=== PATIENT | male | born 1970 | race Caucasian/White ===

== ENCOUNTER 2016-07-17 20:49 | Observation (INO) | payer MEDICARE, OTHER ==
[2016-07-17 20:56] VITALS: RESP 18; TEMP 98.4
[2016-07-17] MEDS ORDERED: NITROGLYCERIN OINT 1 INCH/GM PACKET TOPICAL STA (21:21)
[2016-07-17] MEDS ORDERED: SODIUM CHLORIDE 0.9% 1,000 ML IV STA (21:21)
[2016-07-17] MEDS ORDERED: ASPIRIN 81 MG CHEW PO STA (21:21)
--- NOTE | 2016-07-17 21:24 | ED ---
General Adult HPI - General Chief complaint: Chest Pain Stated complaint: chest pain,dizziness Time Seen by Provider: 07/17/16 21:15 Source: patient, RN notes reviewed Mode of arrival: ambulatory Limitations: no limitations - History of Present Illness Initial comments: Patient is a pleasant 45-year-old male presenting to the emergency department complaining of chest discomfort. Symptoms have been intermittent for the past 3 weeks. Patient is currently symptom-free. Discomfort is sharp without radiation. Patient has some associated lightheadedness and nausea. No dyspnea or diaphoresis. No history of similar symptoms previously. Patient did see her doctor recently and had an EKG done that he was told was okay. Symptoms are nonexertional. Patient does have a history of type 2 diabetes and hypercholesterolemia. Patient recently stopped smoking. - Related Data Home Medications Medication Instructions Recorded Confirmed ARIPiprazole [Abilify] 5 mg PO DAILY 07/17/16 07/17/16 Niacin [Niaspan] 1,000 mg PO HS 07/17/16 07/17/16 Previous Rx's Medication Instructions Recorded Atorvastatin [Lipitor] 40 mg PO DAILY 30 Days 12/28/15 Cholecalciferol [Vitamin D3] 1,000 unit PO DAILY 30 Days 12/28/15 metFORMIN HCL [Glucophage] 500 mg PO BID 30 Days 12/28/15 Allergies Allergy/AdvReac Type Severity Reaction Status Date / Time Penicillins Allergy Unknown Verified 07/17/16 21:50 Childhood Review of Systems ROS Statement: Those systems with pertinent positive or pertinent negative responses have been documented in the HPI. ROS Other: All systems not noted in ROS Statement are negative. Constitutional: Denies: fever Eyes: Denies: eye pain ENT: Denies: ear pain Respiratory: Denies: cough, dyspnea Cardiovascular: Reports: chest pain Endocrine: Denies: heat or cold intolerance Gastrointestinal: Reports: nausea. Denies: abdominal pain Genitourinary: Denies: dysuria Musculoskeletal: Denies: back pain Skin: Denies: rash Neurological: Denies: weakness Past Medical History Past Medical History: Diabetes Mellitus, Hyperlipidemia History of Any Multi-Drug Resistant Organisms: None Reported Past Surgical History: No Surgical Hx Reported Past Anesthesia/Blood Transfusion Reactions: No Reported Reaction Past Psychological History: Schizoaffective Disorder Smoking Status: Current every day smoker Past Alcohol Use History: Occasional Additional Past Alcohol Use History / Comment(s): He is a smoker of one half pack per day for 15 years Patient states that he drinks alcohol once or twice weekly. He denies any street drug use. Patient is single. He has a 13-year- old daughter that is healthy. 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 Past Drug Use History: None Reported - Past Family History Mother History Unknown: Yes Additional Family Medical History / Comment(s): Mother is 75 years of age and he is unsure of her past medical history. Father History Unknown: Yes Additional Family Medical History / Comment(s): Father is alive at age 75 with history of coronary artery disease. Daughter(s) Family Medical History: No Reported History Brother(s) Family Medical History: No Reported History Additional Family Medical History / Comment(s): He has 2 brothers with no major medical problems. General Exam Limitations: no limitations General appearance: alert, in no apparent distress Head exam: Present: atraumatic Eye exam: Present: normal appearance, PERRL ENT exam: Present: normal oropharynx Neck exam: Present: normal inspection Respiratory exam: Present: normal lung sounds bilaterally. Absent: chest wall tenderness Cardiovascular Exam: Present: regular rate, normal rhythm Expanded Peripheral pulses: 2+: Radial (R), Radial (L), Posterior Tibialis (R), Posterior Tibialis (L) GI/Abdominal exam: Present: soft. Absent: tenderness Extremities exam: Present: normal inspection. Absent: pedal edema, calf tenderness Neurological exam: Present: alert Psychiatric exam: Present: normal affect, normal mood Skin exam: Absent: rash Course Vital Signs 07/17/16 07/17/16 20:53 21:55 Temperature 98.4 F Pulse Rate 70 76 Respiratory 18 18 Rate Blood Pressure 131/61 123/56 O2 Sat by Pulse 97 98 Oximetry EKG Findings - EKG Comments: EKG Findings:: Normal sinus rhythm at 78. Normal intervals. Normal axis. Normal QRS. Normal ST-T. Medical Decision Making - Medical Decision Making Patient reexamined and resting comfortably in bed. Patient is symptom-free. Case discussed in detail with Dr. turner, who will admit for Dr. hurt. Admission orders written. IV heparin started. Consult placed for cardiology. - Lab Data Result diagrams: 07/17/16 21:20 07/17/16 21:20 Lab Results 07/17/16 07/17/16 07/17/16 Range/Units 21:20 21:20 21:20 WBC 9.9 (3.8-10.6) k/uL RBC 4.43 (4.30-5.90) m/uL Hgb 14.2 (13.0-17.5) gm/dL Hct 40.2 (39.0-53.0) % MCV 90.8 (80.0-100.0) fL MCH 32.0 (25.0-35.0) pg MCHC 35.3 (31.0-37.0) g/dL RDW 12.4 (11.5-15.5) % Plt Count 288 (150-450) k/uL Neutrophils % 49 % Lymphocytes % 41 % Monocytes % 5 % Eosinophils % 2 % Basophils % 1 % Neutrophils # 4.9 (1.3-7.7) k/uL Lymphocytes # 4.1 (1.0-4.8) k/uL Monocytes # 0.5 (0-1.0) k/uL Eosinophils # 0.2 (0-0.7) k/uL Basophils # 0.1 (0-0.2) k/uL PT (9.0-12.0) sec INR (<1.1) APTT (22.0-30.0) sec Sodium 139 (137-145) mmol/L Potassium 4.2 (3.5-5.1) mmol/L Chloride 104 (98-107) mmol/L Carbon Dioxide 23 (22-30) mmol/L Anion Gap 12 mmol/L BUN 14 (9-20) mg/dL Creatinine 0.79 (0.66-1.25) mg/dL Est GFR (MDRD) Af Amer >60 (>60 ml/min/1.73 sqM) Est GFR (MDRD) Non-Af >60 (>60 ml/min/1.73 sqM) Glucose 159 H (74-99) mg/dL Calcium 9.3 (8.4-10.2) mg/dL Magnesium 2.0 (1.6-2.3) mg/dL Total Bilirubin 0.5 (0.2-1.3) mg/dL AST 29 (17-59) U/L ALT 54 (21-72) U/L Alkaline Phosphatase 44 (38-126) U/L Total Creatine Kinase 99 (55-170) U/L CK-MB (CK-2) 0.6 (0.0-2.4) ng/mL CK-MB (CK-2) Rel Index 0.6 Troponin I <0.012 (0.000-0.034) ng/mL Total Protein 7.1 (6.3-8.2) g/dL Albumin 4.2 (3.5-5.0) g/dL 07/17/16 Range/Units 21:20 WBC (3.8-10.6) k/uL RBC (4.30-5.90) m/uL Hgb (13.0-17.5) gm/dL Hct (39.0-53.0) % MCV (80.0-100.0) fL MCH (25.0-35.0) pg MCHC (31.0-37.0) g/dL RDW (11.5-15.5) % Plt Count (150-450) k/uL Neutrophils % % Lymphocytes % % Monocytes % % Eosinophils % % Basophils % % Neutrophils # (1.3-7.7) k/uL Lymphocytes # (1.0-4.8) k/uL Monocytes # (0-1.0) k/uL Eosinophils # (0-0.7) k/uL Basophils # (0-0.2) k/uL PT 9.9 (9.0-12.0) sec INR 1.0 (<1.1) APTT 23.4 (22.0-30.0) sec Sodium (137-145) mmol/L Potassium (3.5-5.1) mmol/L Chloride (98-107) mmol/L Carbon Dioxide (22-30) mmol/L Anion Gap mmol/L BUN (9-20) mg/dL Creatinine (0.66-1.25) mg/dL Est GFR (MDRD) Af Amer (>60 ml/min/1.73 sqM) Est GFR (MDRD) Non-Af (>60 ml/min/1.73 sqM) Glucose (74-99) mg/dL Calcium (8.4-10.2) mg/dL Magnesium (1.6-2.3) mg/dL Total Bilirubin (0.2-1.3) mg/dL AST (17-59) U/L ALT (21-72) U/L Alkaline Phosphatase (38-126) U/L Total Creatine Kinase (55-170) U/L CK-MB (CK-2) (0.0-2.4) ng/mL CK-MB (CK-2) Rel Index Troponin I (0.000-0.034) ng/mL Total Protein (6.3-8.2) g/dL Albumin (3.5-5.0) g/dL - Radiology Data Radiology results: image reviewed (Chest x-ray shows no acute process) Critical Care Time Critical Care Time: Yes Total Critical Care Time: 31 Disposition Clinical Impression: Unstable angina pectoris Disposition: ADMITTED IP TO THIS HOSP
[2016-07-17 21:31] LABS: Basophils # (A) 0.1 k/uL (0-0.2); Basophils % (A) 1 %; CH 32.1; CHCM 35.6; Eosinophils # (A) 0.2 k/uL (0-0.7); Eosinophils % (A) 2 %; HCT 40.2 % (39.0-53.0); HDW 2.53; HGB 14.2 gm/dL (13.0-17.5); Luc # (Auto) 0.27; Luc % (Auto) 3; Lymphocytes # (A) 4.1 k/uL (1.0-4.8); Lymphocytes % (A) 41 %; MCHC 35.3 g/dL (31.0-37.0); MCV 90.8 fL (80.0-100.0); Mean Platelet Volume 7.6; Monocytes # (A) 0.5 k/uL (0-1.0); Monocytes % (A) 5 %; Neutrophils # (A) 4.9 k/uL (1.3-7.7); Neutrophils % (A) 49 %; RBC 4.43 m/uL (4.30-5.90); RDW 12.4 % (11.5-15.5); WBC 9.9 k/uL (3.8-10.6); WBC (Perox) 9.94
[2016-07-17 21:41] LABS: ALT 54 U/L (21-72); AST 29 U/L (17-59); Alkaline Phosphatase 44 U/L (38-126); Anion Gap 12 mmol/L; Blood Urea Nitrogen 14 mg/dL (9-20); Calcium 9.3 mg/dL (8.4-10.2); Carbon Dioxide 23 mmol/L (22-30); Chloride 104 mmol/L (98-107); Glucose 159 mg/dL (74-99); Non-African American GFR(MDRD) >60 (>60 ml/min/1.73 sqM); Potassium 4.2 mmol/L (3.5-5.1); Sodium 139 mmol/L (137-145); Total Bilirubin 0.5 mg/dL (0.2-1.3); Total Protein 7.1 g/dL (6.3-8.2)
[2016-07-17 21:42] LABS: Partial Thromboplastin Time 23.4 sec (22.0-30.0); Prothrombin Time 9.9 sec (9.0-12.0)
[2016-07-17 21:52] LABS: Creatine Kinase 99 U/L (55-170)
[2016-07-17 21:59] VITALS: BP 123/56; PULSE 76
[2016-07-17 22:05] LABS: Creatine Kinase MB 0.6 ng/mL (0.0-2.4); Troponin I <0.012 ng/mL (0.000-0.034)
--- NOTE | 2016-07-17 22:10 | XR ---
EXAM: XR Chest, 2 Views. CLINICAL HISTORY: Reason: Chest Pain TECHNIQUE: Frontal and lateral views of the chest. COMPARISON: No relevant prior studies available. FINDINGS: Lungs: Unremarkable. No consolidation. Pleural spaces: Unremarkable. No pneumothorax. Heart: Borderline cardiomegaly. Mediastinum: Unremarkable. Bones: Unremarkable. No acute fracture. IMPRESSION: No acute findings or source of the patient's chest pain detected.
[2016-07-17] MEDS ORDERED: HEPARIN SODIUM,PORCINE 5,000 UNIT/ML 1 ML VIAL IV ONE (22:40)
[2016-07-17] MEDS ORDERED: NITROGLYCERIN SL TABS 0.4 MG TAB SUBLINGUAL PRN (22:40)
[2016-07-17] MEDS ORDERED: HEPARIN SODIUM,PORCINE 5,000 UNIT/ML 1 ML VIAL IV PRN (22:40)
[2016-07-17] MEDS ORDERED: HEPARIN SODIUM,PORCINE/D5W PMX 25,000 UNIT in DEXTROSE/WATER 1 500ML.BAG IV SCH (22:45)
[2016-07-18] MEDS ORDERED: NITROGLYCERIN OINT 1 INCH/GM PACKET TOPICAL SCH
[2016-07-18] MEDS ORDERED: ASPIRIN 325 MG TAB PO SCH (09:00)
--- NOTE | 2016-07-26 20:08 | HP ---
DATE OF ADMISSION: 07/17/2016 HISTORY AND PHYSICAL EXAMINATION/DISCHARGE SUMMARY: Date left against medical advice: 07/17/2016 This is a patient who was not seen by me, was admitted with chest pain for further documentation. Refer to the ER notes. ADMITTING DIAGNOSIS(ES): Chest pain. DISCHARGE DIAGNOSIS(ES): Chest pain.
== END 2016-07-17 23:10 | disposition left against medical advice (07) ==
LOC: EC 20:49 → 3OBS 22:39
PROVIDERS: ADMIT Hospitalist; ATTEND Hospitalist
DX: I20.0 Unstable angina (principal); R42 Dizziness and giddiness; R11.0 Nausea; E11.9 Type 2 diabetes mellitus without complications; E78.00 Pure hypercholesterolemia, unspecified; E78.5 Hyperlipidemia, unspecified; F17.200 Nicotine dependence, unspecified, uncomplicated; F25.9 Schizoaffective disorder, unspecified; Z82.49 Family history of ischemic heart disease and other diseases of the circulatory system; Z79.84 Long term (current) use of oral hypoglycemic drugs; Z79.899 Other long term (current) drug therapy; Z88.0 Allergy status to penicillin
CPT/HCPCS: 36415; 93005; 80053; 82550; 82553; 83735; 84484; 85025; 85610; 85730; 71020; 99291; G0378

== ENCOUNTER 2016-07-18 00:34 | Observation (INO) | payer MEDICARE, OTHER ==
--- NOTE | 2016-07-18 01:01 | ED ---
Chest Pain HPI - General Chief Complaint: Chest Pain Stated Complaint: Chest Pain Time Seen by Provider: 07/18/16 00:41 Source: patient Mode of arrival: ambulatory Limitations: no limitations - History of Present Illness Initial Comments: He was here with the chest pain eval he was seen in the ER had a blood work done we made some arrangements for his admission then numb he took cough now he is back and now he intends to stay he still feels bit dizzy lightheaded and still has a mild chest pain has a mild headache no neck stiffness does have a mild chest pain no shortness of breath no abdominal pain been nauseous no frequency urgency dysuria no signs of TIA or CVA - Related Data Home Medications Medication Instructions Recorded Confirmed ARIPiprazole [Abilify] 5 mg PO DAILY 07/17/16 07/17/16 Niacin [Niaspan] 1,000 mg PO HS 07/17/16 07/17/16 Previous Rx's Medication Instructions Recorded Atorvastatin [Lipitor] 40 mg PO DAILY 30 Days 12/28/15 Cholecalciferol [Vitamin D3] 1,000 unit PO DAILY 30 Days 12/28/15 metFORMIN HCL [Glucophage] 500 mg PO BID 30 Days 12/28/15 Allergies Allergy/AdvReac Type Severity Reaction Status Date / Time Penicillins Allergy Unknown Verified 07/18/16 00:38 Childhood Review of Systems ROS Statement: Those systems with pertinent positive or pertinent negative responses have been documented in the HPI. ROS Other: All systems not noted in ROS Statement are negative. EKG Findings - EKG Comments: EKG Findings:: EKG is normal sinus rhythm ventricular rate is 77 NC interval is 118 QRS duration is 86 QT/QTc is 370/423 review of this EKG shows T-wave inversion in lead 3 and lead aVF no ST elevation or ST depression noticed in the other leads Past Medical History Past Medical History: Diabetes Mellitus, Hyperlipidemia History of Any Multi-Drug Resistant Organisms: None Reported Past Surgical History: No Surgical Hx Reported Past Anesthesia/Blood Transfusion Reactions: No Reported Reaction Past Psychological History: Schizoaffective Disorder Smoking Status: Current every day smoker Past Alcohol Use History: Occasional Additional Past Alcohol Use History / Comment(s): He is a smoker of one half pack per day for 15 years Patient states that he drinks alcohol once or twice weekly. He denies any street drug use. Patient is single. He has a 13-year- old daughter that is healthy. 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 Past Drug Use History: None Reported - Past Family History Mother History Unknown: Yes Additional Family Medical History / Comment(s): Mother is 75 years of age and he is unsure of her past medical history. Father History Unknown: Yes Additional Family Medical History / Comment(s): Father is alive at age 75 with history of coronary artery disease. Daughter(s) Family Medical History: No Reported History Brother(s) Family Medical History: No Reported History Additional Family Medical History / Comment(s): He has 2 brothers with no major medical problems. General Exam - General Exam Comments Initial Comments: General: The patient is awake and alert, in no distress, and does not appear acutely ill. Skin: Skin is warm and dry and no rashes or lesions are noted. Eye: Pupils are equal, round and reactive to light, extra-ocular movements are intact; there is normal conjunctiva bilaterally. Ears, nose, mouth and throat: There are moist mucous membranes and no oral lesions. Neck: The neck is supple, there is no tenderness or JVD. Cardiovascular: There is a regular rate and rhythm. No murmur, rub or gallop is appreciated. Respiratory: To auscultation bilateral, no wheezing no rhonchi no distress respiratory mckinley noticed Gastrointestinal: Soft, non-distended, non-tender abdomen without masses or organomegaly noted. There is no rebound or guarding present. Bowel sounds are unremarkable. Back: There is no tenderness to palpation in the midline. There is no obvious deformity. Musculoskeletal: Normal ROM, no tenderness, There is no pedal edema. There is no calf tenderness or swelling. No cords were appreciated. Neurological: CN II-XII intact, Cranial nerves III through XII are intact. There are no obvious motor or sensory deficits. Coordination appears grossly intact. Speech is normal. Psychiatric: Cooperative, appropriate mood & affect, normal judgment. Limitations: no limitations Course Vital Signs 07/18/16 00:37 Temperature 98.3 F Pulse Rate 81 Respiratory 22 Rate Blood Pressure 121/60 O2 Sat by Pulse 98 Oximetry Me he had a blood work done at 9:15 PM today, he reviewed the blood work that included CBC, compressive metabolic panel, chest x-ray I reviewed all those labs and they are within normal range considering his age and his multiple risk factors I would like to admit him to the hospital consult cardiology and heparinize him Disposition Clinical Impression: Chest pain Disposition: ADMITTED IP TO THIS HOSP Condition: Good Referrals: Red Yanez MD [Primary Care Provider] - 1-2 days
[2016-07-18] MEDS ORDERED: MORPHINE SULFATE 2 MG/ML SYRINGE IVP PRN (01:05)
[2016-07-18] MEDS ORDERED: HEPARIN SODIUM,PORCINE 5,000 UNIT/ML 1 ML VIAL IV ONE (01:05)
[2016-07-18] MEDS ORDERED: NITROGLYCERIN SL TABS 0.4 MG TAB SUBLINGUAL PRN (01:05)
[2016-07-18] MEDS ORDERED: HEPARIN SODIUM,PORCINE/D5W PMX 25,000 UNIT in DEXTROSE/WATER 1 500ML.BAG IV SCH (01:15)
[2016-07-18] MEDS ORDERED: HEPARIN SODIUM,PORCINE 5,000 UNIT/ML 1 ML VIAL IV PRN (01:47)
[2016-07-18 02:40] VITALS: BMI 34.2
[2016-07-18] MEDS ORDERED: ACETAMINOPHEN TAB 325 MG TAB PO PRN (03:23)
[2016-07-18 03:52] LABS: Creatine Kinase 87 U/L (55-170)
[2016-07-18 04:05] LABS: Creatine Kinase MB 0.4 ng/mL (0.0-2.4); Troponin I <0.012 ng/mL (0.000-0.034)
[2016-07-18 07:00] LABS: Glucose,Whole Blood 120 mg/dL (75-99)
[2016-07-18 07:57] VITALS: RESP 18
--- NOTE | 2016-07-18 07:57 | CONS ---
DATE OF CONSULTATION: Mr. Sinclair is a 45-year-old male who was diagnosed about 6 months ago with type 2 diabetes mellitus, history of hyperlipidemia, prior history of smoking, which he stopped 4 weeks ago who presented with symptoms of chest discomfort. The discomfort has been going on for the last few days not activity related more positional in pattern lasting for a few seconds. He came into the emergency room and he was scheduled to be admitted, but then he left to have something to eat and came back to be admitted. He is pain free at the time of my evaluation. He has some dyspnea on exertion. He is not very active physically. He denies any palpitation or syncope. He has mild dizziness. He has no PND, orthopnea, or peripheral edema. He underwent a stress test a few years ago and that was unremarkable according to him. His coronary risk factors are noted for diabetes, hyperlipidemia, and a prior history of smoking. There is no documented hypertension. His medications at home include metformin 500 mg twice a day, Niaspan 1 gram daily, vitamin D, Lipitor 40 mg daily and Abilify 5 mg daily. REVIEW OF SYSTEMS: RESPIRATORY SYSTEM: He has no recent wheezing. No cough. He has dyspnea on exertion. GI SYSTEM: No recent GI bleed. No peptic ulcer disease. SYSTEM: No dysuria or hematuria. NERVOUS SYSTEM: No stroke or seizure. PHYSICAL EXAMINATION: He is a 45-year-old male, alert, oriented, in no apparent distress. Blood pressure 118/50 with the heart rate in 70s. HEAD: Normocephalic. EYES: Sclerae anicteric. NECK: Good upstroke. No bruit. No jugular venous distention. LUNGS: Clear to auscultation. HEART: Regular rate and rhythm. S1, S2, no S3, no S4, no murmur or rub. ABDOMEN: Soft, nontender, positive bowel sounds. No organomegaly. EXTREMITIES: No edema. Intact distal pulses. LAB DATA: Troponin less than 0.012 for 2 samples. BUN and creatinine of 14 and 0.79. Potassium 4.2. Hemoglobin of 14.2. EKG revealed a sinus mechanism, normal axis and intervals, no significant abnormality. Chest x-ray shows no acute infiltrate. IMPRESSION: 1. Chest discomfort, has atypical feature for ischemic heart disease, probably noncardiac in etiology. 2. History of diabetes mellitus. 3. Prior history of smoking. 4. History of hyperlipidemia. RECOMMENDATIONS: I will stop his IV heparin. I would recommend to proceed with a stress echocardiogram as well as a transthoracic echo. If there is no evidence of abnormality then no further cardiac workup will be needed.
[2016-07-18] MEDS ORDERED: ATORVASTATIN 40 MG TAB PO SCH (09:00)
[2016-07-18] MEDS ORDERED: CHOLECALCIFEROL 1,000 UNIT TAB PO SCH (09:00)
[2016-07-18] MEDS ORDERED: ARIPiprazole 5 MG TAB PO SCH (09:00)
[2016-07-18] MEDS ORDERED: metFORMIN 500 MG TAB PO SCH (09:00)
[2016-07-18 09:28] LABS: Creatine Kinase 82 U/L (55-170)
[2016-07-18 09:41] LABS: Creatine Kinase MB 0.4 ng/mL (0.0-2.4); Troponin I <0.012 ng/mL (0.000-0.034)
[2016-07-18 11:57] VITALS: BP 130/62; PULSE 87; TEMP 97.6
--- NOTE | 2016-07-18 12:01 | ECHOF ---
Referral Reason:cp MEASUREMENTS -------- HEIGHT: 172.7 cm WEIGHT: 102.1 kg BP: 114/78 RVIDd: 2.9 cm (< 3.3) IVSd: 1.1 cm (0.6 - 1.1) LVIDd: 4.6 cm (3.9 - 5.3) LVPWd: 1.1 cm (0.6 - 1.1) IVSs: 1.7 cm LVIDs: 2.9 cm LVPWs: 1.4 cm LA Diam: 3.2 cm (2.7 - 3.8) LAESV Index (A-L): 20.95 ml/m Ao Diam: 3.2 cm (2.0 - 3.7) AV Cusp: 2.0 cm (1.5 - 2.6) MV EXCURSION: 17.245 mm (> 18.000) MV EF SLOPE: 128 mm/s (70 - 150) EPSS: 0.4 cm MV E Alon: 1.14 m/s MV DecT: 156 ms MV A Alon: 0.49 m/s MV E/A Ratio: 2.31 FINDINGS -------- Sinus rhythm. This was a technically good study. The left ventricular size is normal. There is borderline concentric left ventricular hypertrophy. Overall left ventricular systolic function is normal with, an EF between 60 - 65 %. The right ventricle is normal in size. Normal LA size by volume 22+/-6 ml/m2. The right atrium is normal in size. Aortic valve is trileaflet and is mildly thickened. Mild mitral annular calcification present. The tricuspid valve appears structurally normal. Trace/mild (physiologic) pulmonic regurgitation. The aortic root size is normal. The inferior vena cava is mildly dilated. There is no pericardial effusion. CONCLUSIONS -------- 1. Sinus rhythm. 2. The tricuspid valve appears structurally normal. 3. Trace/mild (physiologic) pulmonic regurgitation. 4. The aortic root size is normal. 5. The inferior vena cava is mildly dilated. 6. There is no pericardial effusion. 7. This was a technically good study. 8. The left ventricular size is normal. 9. There is borderline concentric left ventricular hypertrophy. 10. Overall left ventricular systolic function is normal with, an EF between 60 - 65 %. 11. The right ventricle is normal in size. 12. Normal LA size by volume 22+/-6 ml/m2. 13. Aortic valve is trileaflet and is mildly thickened. 14. Mild mitral annular calcification present. STORE RECEIVING SPECIALIST: Charisse Mcfarland RDCS
[2016-07-18 12:07] LABS: Glucose,Whole Blood 138 mg/dL (75-99)
--- NOTE | 2016-07-18 13:39 | ECHOS ---
DATE OF SERVICE: 07/18/2016 AGE: 45Y SEX: M HT: 68" WT: 225 lbs. Protocol Dimas: X Others: Stress Echo Stage: 3 Dur. of Exercise: 8:00 *Heart Rate Blood Pressure *Rest: 77 Rest: 129/70 * *Max. Achieved: 151 Maximum BP: 152/53 85% PMHR: 147 100% PMHR: 173 *METS: 9.1 INDICATIONS: Chest pain. MEDICATIONS: - Patient was exercised for a total period of 8 minutes. A peak heart rate of 151 was achieved. Maximum blood pressure of 152/53 mmHg was noted. The test was terminated because patient got short of breath and had EKG changes. Patient did not complain of any anginal pain during the test. Resting EKG shows normal sinus rhythm with normal DC interval and QRS duration and normal ST-T waves. During exercise about [address] segment depression is noted associated with symptoms of shortness of breath. The ST segment depression persisted for about 4 to 6 minutes in the postexercise period. The baseline echocardiographic images reveal normal left ventricular chamber size with normal left ventricular systolic function. At the peak in the immediate postexercise period, there is a possible inferobasal hypokinesia. IMPRESSION: 1. This patient's stress EKG shows significant ST segment depression during the exercise which is about 2 to 2.5 mm, persists for about 4 to 6 minutes in the postexercise period. This was associated with symptoms of shortness of breath. A significant coronary artery disease cannot be entirely excluded. Clinical correlation is suggested. 2. Echocardiogram shows possible inferobasal hypokinesia in the immediate postexercise period suggestive of stress-induced ischemia. 3. Patient's stress test was terminated because of the symptoms of shortness of breath.
[2016-07-18] MEDS ORDERED: NIACIN TR 500 MG CAPSULE.ER PO SCH (21:00)
--- NOTE | 2016-07-18 22:36 | HP ---
DATE OF ADMISSION: 07/18/2016 PRESENTING COMPLAINT: Chest pain. HISTORY OF PRESENTING COMPLAINT: This is a 45 -year-old patient I saw earlier this morning. The patient's chronic stable medical conditions include diabetes, hyperlipidemia. Patient was previously having anterior chest wall pain on and off varying in duration, not related to rest or exertion. No shortness of breath. No dizziness. Does feel tired. No perspiration. Given the risk factors, admitted to rule out cardiac cause. Patient did stop smoking about 3 weeks ago. Denies any shortness of breath, wheezing. REVIEW OF SYSTEMS: CONSTITUTIONAL: None. HEENT: None. RESPIRATORY: None. CARDIOVASCULAR: As above. GASTROINTESTINAL: None. GENITOURINARY: Her. MUSCULOSKELETAL: None. Dermatologic: None. HEMATOLOGIC: None. LYMPHATIC: None. PSYCHIATRY: None. NEUROLOGICAL: None. Past medical history of diabetes mellitus type 2, hyperlipidemia, schizoaffective disorder. PAST SURGICAL HISTORY: None. SOCIAL HISTORY: The patient smoked a pack and a half for 15 years; stopped about 3 weeks ago, drinks about 2 or 3 beers a week, has a [id number] daughter. 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 FAMILY HISTORY: Reviewed, noncontributory to the presentation. HOME MEDICATIONS: 1. Vitamin B complex 1 capsule daily. 2. Vitamin C 500 mg p.o. daily. 3. Metformin 5 mg p.o. b.i.d. 4. Niacin 1000 mg q.h.s. 5. Lipitor 40 mg daily. 6. Abilify 10 mg p.o. daily. ALLERGIES: PENICILLIN. On examination, temperature 98.1, pulse 71, respiration 18, blood pressure 110/62, pulse ox 97% on room air. GENERAL APPEARANCE: Well built, BMI of 34.2, lying in bed, comfortable. EYES: Pupils equal. Conjunctivae normal. HEENT: External appearance of nose and ears normal. Oral cavity normal. NECK: JVD not raised. Mass not palpable. RESPIRATORY: Effort normal. Lungs are clear. CARDIOVASCULAR: First and second sounds normal. No edema. ABDOMEN: Soft, nontender. Liver and spleen not palpable. LYMPHATIC: No lymph nodes palpable in neck or axillae. PSYCHIATRY: Alert and oriented x3. Mood and affect normal. INVESTIGATIONS: Troponins x2 are negative. EKG normal sinus rhythm. ASSESSMENT: 1. Somewhat atypical anterior chest wall pain, sharp in nature, could be musculoskeletal. Patient's cardiac risk factors include hyperlipidemia, diabetes, obesity, rule out a cardiac cause. 2. Type 2 diabetes mellitus, on or hypoglycemic. 3. Hyperlipidemia. 4. Obesity body mass index 34.2. PLAN: Dr. Goldsmith from oncology was consulted who ordered stress echocardiogram.
[2016-07-19] MEDS ORDERED: ASPIRIN 325 MG TAB PO SCH (09:00)
--- NOTE | 2016-07-19 09:32 | DS ---
DATE OF ADMISSION: 07/18/2016 DATE OF DISCHARGE: 07/18/2016 Date patient left AGAINST MEDICAL ADVICE: 07/18/16. FINAL DIAGNOSES: 1. Unstable angina with positive stress test. 2. Diabetes mellitus type 2. 3. Obesity; body mass index 34.2. 4. Hyperlipidemia. HOSPITAL COURSE: This patient who is a diabetic, hyperlipidemia, stopped smoking recently presented with chest pain. Dobutamine stress echocardiogram came back positive, but in the meantime, the patient left AGAINST MEDICAL ADVICE. On examination, lungs were clear. CARDIOVASCULAR: First and second sounds normal. Consultation with Dr. Goldsmith. DISPOSITION: Left AGAINST MEDICAL ADVICE.
== END 2016-07-18 14:10 | disposition left against medical advice (07) ==
LOC: EC 00:34 → 3OBS 01:03
PROVIDERS: ADMIT Hospitalist; ATTEND Hospitalist
DX: I20.0 Unstable angina (principal); R94.39 Abnormal result of other cardiovascular function study; E78.5 Hyperlipidemia, unspecified; E66.9 Obesity, unspecified; Z68.34 Body mass index [BMI] 34.0-34.9, adult; F25.9 Schizoaffective disorder, unspecified; E11.9 Type 2 diabetes mellitus without complications; Z87.891 Personal history of nicotine dependence; Z79.899 Other long term (current) drug therapy; Z79.84 Long term (current) use of oral hypoglycemic drugs; Z88.0 Allergy status to penicillin; Z82.49 Family history of ischemic heart disease and other diseases of the circulatory system
CPT/HCPCS: 99285; 96376; 96365; 93005; 93017; 93306; 93350; 82550; 82553; 84484; 85730; G0378; J1644 ×2; 96366

== ENCOUNTER 2016-08-12 23:51 | Emergency (ER) | payer MEDICARE, OTHER ==
[2016-08-13 00:01] VITALS: BP 149/72; PULSE 89; RESP 18; TEMP 98.4
[2016-08-13] MEDS ORDERED: MORPHINE SULFATE 4 MG/ML SYRINGE IV STA (00:40)
[2016-08-13] MEDS ORDERED: RX INFO: IV CONTRAST WAS GIVEN 1 EACH MISC MISCELLANE PRN (00:40)
[2016-08-13] MEDS ORDERED: SODIUM CHLORIDE 0.9% 1,000 ML IV STA (00:40)
[2016-08-13] MEDS ORDERED: SODIUM CHLORIDE 0.9% 500 ML IV STA (00:40)
--- NOTE | 2016-08-13 00:41 | ED ---
General Adult HPI - General Chief complaint: Chest Pain Stated complaint: chest pain Time Seen by Provider: 08/13/16 00:14 Source: patient, RN notes reviewed, old records reviewed Mode of arrival: wheelchair Limitations: no limitations - History of Present Illness Initial comments: This is a 45-year-old male year for chest pain. Patient brought in the ED today for evaluation of chest pain, patient states while he was out driving the infill dizziness lightheaded and having anterior chest pain. Patient states upon arousal emergency room he is having no chest pain, no shortness of breath no cough or congestion. - Related Data Home Medications Medication Instructions Recorded Confirmed ARIPiprazole [Abilify] 10 mg PO DAILY 07/17/16 08/13/16 Niacin [Niaspan] 1,000 mg PO HS 07/17/16 08/13/16 Ascorbic Acid [Vitamin C] 500 mg PO DAILY 07/18/16 08/13/16 Vitamin B Complex 1 cap PO DAILY 07/18/16 08/13/16 Previous Rx's Medication Instructions Recorded Atorvastatin [Lipitor] 40 mg PO DAILY 30 Days 12/28/15 metFORMIN HCL [Glucophage] 500 mg PO BID 30 Days 12/28/15 Omeprazole [PriLOSEC] 20 mg PO AC-BRKFST #30 cap 07/19/16 Allergies Allergy/AdvReac Type Severity Reaction Status Date / Time Penicillins Allergy Unknown Verified 08/13/16 00:00 Childhood Review of Systems ROS Statement: Those systems with pertinent positive or pertinent negative responses have been documented in the HPI. ROS Other: All systems not noted in ROS Statement are negative. Past Medical History Past Medical History: Diabetes Mellitus, Hyperlipidemia History of Any Multi-Drug Resistant Organisms: None Reported Past Surgical History: No Surgical Hx Reported Past Anesthesia/Blood Transfusion Reactions: No Reported Reaction Past Psychological History: Schizoaffective Disorder Smoking Status: Former smoker Past Alcohol Use History: Occasional Additional Past Alcohol Use History / Comment(s): He is a smoker of one half pack per day for 15 years - he just quit beginning of jun 2016 Patient states that he drinks alcohol once or twice weekly. He denies any street drug use. Patient is single. He has a 13-year-old daughter that is healthy. 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 Past Drug Use History: None Reported - Past Family History Mother History Unknown: Yes Additional Family Medical History / Comment(s): Mother is 75 years of age and he is unsure of her past medical history. Father History Unknown: Yes Additional Family Medical History / Comment(s): Father is alive at age 75 with history of coronary artery disease. Daughter(s) Family Medical History: No Reported History Brother(s) Family Medical History: No Reported History Additional Family Medical History / Comment(s): He has 2 brothers with no major medical problems. General Exam Limitations: no limitations General appearance: alert, in no apparent distress, anxious Head exam: Present: atraumatic, normocephalic, normal inspection Eye exam: Present: normal appearance, PERRL, EOMI. Absent: scleral icterus, conjunctival injection, periorbital swelling ENT exam: Present: normal exam, mucous membranes moist Neck exam: Present: normal inspection. Absent: tenderness, meningismus, lymphadenopathy Respiratory exam: Present: normal lung sounds bilaterally. Absent: respiratory distress, wheezes, rales, rhonchi, stridor Cardiovascular Exam: Present: regular rate, normal rhythm, normal heart sounds. Absent: systolic murmur, diastolic murmur, rubs, gallop, clicks GI/Abdominal exam: Present: soft, normal bowel sounds. Absent: distended, tenderness, guarding, rebound, rigid Extremities exam: Present: normal inspection, full ROM, normal capillary refill. Absent: tenderness, pedal edema, joint swelling, calf tenderness Back exam: Present: normal inspection Neurological exam: Present: alert, oriented X3, CN II-XII intact Psychiatric exam: Present: normal affect, normal mood Skin exam: Present: warm, dry, intact, normal color. Absent: rash Course Vital Signs 08/12/16 23:58 Temperature 98.4 F Pulse Rate 89 Respiratory 18 Rate Blood Pressure 149/72 O2 Sat by Pulse 98 Oximetry - Reevaluation(s) Reevaluation #1: Patient spoken with greater than 15 minutes and requested to stay in emergency room, patient refusing EKG Findings - EKG Comments: EKG Findings:: EKG shows normal sinus rhythm rhythm rate of 78, DE 118, QRS 86, QTC 417 Medical Decision Making - Medical Decision Making 45 male consult regarding chest pain, patient refusing for further steak him refusing further interrogation, patient signing out AGAINST MEDICAL ADVICE understanding that outcome can include - Lab Data Result diagrams: 08/13/16 00:55 08/13/16 00:55 Lab Results 08/13/16 08/13/16 08/13/16 Range/Units 00:55 00:55 00:55 WBC 10.2 (3.8-10.6) k/uL RBC 4.76 (4.30-5.90) m/uL Hgb 14.9 (13.0-17.5) gm/dL Hct 42.4 (39.0-53.0) % MCV 89.1 (80.0-100.0) fL MCH 31.2 (25.0-35.0) pg MCHC 35.0 (31.0-37.0) g/dL RDW 12.1 (11.5-15.5) % Plt Count 293 (150-450) k/uL Neutrophils % 51 % Lymphocytes % 39 % Monocytes % 4 % Eosinophils % 1 % Basophils % 2 % Neutrophils # 5.2 (1.3-7.7) k/uL Lymphocytes # 3.9 (1.0-4.8) k/uL Monocytes # 0.4 (0-1.0) k/uL Eosinophils # 0.1 (0-0.7) k/uL Basophils # 0.2 (0-0.2) k/uL PT (9.0-12.0) sec INR (<1.1) APTT (22.0-30.0) sec D-Dimer (<0.60) mg/L FEU Sodium 143 (137-145) mmol/L Potassium 4.1 (3.5-5.1) mmol/L Chloride 106 (98-107) mmol/L Carbon Dioxide 26 (22-30) mmol/L Anion Gap 11 mmol/L BUN 12 (9-20) mg/dL Creatinine 0.80 (0.66-1.25) mg/dL Est GFR (MDRD) Af Amer >60 (>60 ml/min/1.73 sqM) Est GFR (MDRD) Non-Af >60 (>60 ml/min/1.73 sqM) Glucose 152 H (74-99) mg/dL Calcium 9.7 (8.4-10.2) mg/dL Magnesium 2.2 (1.6-2.3) mg/dL Total Bilirubin 0.4 (0.2-1.3) mg/dL AST 34 (17-59) U/L ALT 68 (21-72) U/L Alkaline Phosphatase 49 (38-126) U/L Total Creatine Kinase 120 (55-170) U/L CK-MB (CK-2) 0.6 (0.0-2.4) ng/mL CK-MB (CK-2) Rel Index 0.5 Troponin I <0.012 (0.000-0.034) ng/mL Total Protein 7.0 (6.3-8.2) g/dL Albumin 4.4 (3.5-5.0) g/dL Lipase 61 (23-300) U/L 08/13/16 Range/Units 00:55 WBC (3.8-10.6) k/uL RBC (4.30-5.90) m/uL Hgb (13.0-17.5) gm/dL Hct (39.0-53.0) % MCV (80.0-100.0) fL MCH (25.0-35.0) pg MCHC (31.0-37.0) g/dL RDW (11.5-15.5) % Plt Count (150-450) k/uL Neutrophils % % Lymphocytes % % Monocytes % % Eosinophils % % Basophils % % Neutrophils # (1.3-7.7) k/uL Lymphocytes # (1.0-4.8) k/uL Monocytes # (0-1.0) k/uL Eosinophils # (0-0.7) k/uL Basophils # (0-0.2) k/uL PT 9.5 (9.0-12.0) sec INR 0.9 (<1.1) APTT 23.2 (22.0-30.0) sec D-Dimer 0.27 (<0.60) mg/L FEU Sodium (137-145) mmol/L Potassium (3.5-5.1) mmol/L Chloride (98-107) mmol/L Carbon Dioxide (22-30) mmol/L Anion Gap mmol/L BUN (9-20) mg/dL Creatinine (0.66-1.25) mg/dL Est GFR (MDRD) Af Amer (>60 ml/min/1.73 sqM) Est GFR (MDRD) Non-Af (>60 ml/min/1.73 sqM) Glucose (74-99) mg/dL Calcium (8.4-10.2) mg/dL Magnesium (1.6-2.3) mg/dL Total Bilirubin (0.2-1.3) mg/dL AST (17-59) U/L ALT (21-72) U/L Alkaline Phosphatase (38-126) U/L Total Creatine Kinase (55-170) U/L CK-MB (CK-2) (0.0-2.4) ng/mL CK-MB (CK-2) Rel Index Troponin I (0.000-0.034) ng/mL Total Protein (6.3-8.2) g/dL Albumin (3.5-5.0) g/dL Lipase (23-300) U/L Disposition Clinical Impression: Unstable angina pectoris, Chest pain, Psychosis Disposition: Left Against Medical Advice Referrals: Red Yanez MD [Primary Care Provider] - 1-2 days
[2016-08-13 01:34] LABS: Basophils # (A) 0.2 k/uL (0-0.2); Basophils % (A) 2 %; CH 31.9; CHCM 35.9; Eosinophils # (A) 0.1 k/uL (0-0.7); Eosinophils % (A) 1 %; HCT 42.4 % (39.0-53.0); HDW 2.53; HGB 14.9 gm/dL (13.0-17.5); Luc # (Auto) 0.32; Luc % (Auto) 3; Lymphocytes # (A) 3.9 k/uL (1.0-4.8); Lymphocytes % (A) 39 %; MCH 31.2 pg (25.0-35.0); MCV 89.1 fL (80.0-100.0); Mean Platelet Volume 7.5; Monocytes # (A) 0.4 k/uL (0-1.0); Monocytes % (A) 4 %; Neutrophils # (A) 5.2 k/uL (1.3-7.7); Neutrophils % (A) 51 %; RBC 4.76 m/uL (4.30-5.90); RDW 12.1 % (11.5-15.5); WBC 10.2 k/uL (3.8-10.6); WBC (Perox) 10.58
[2016-08-13 01:43] LABS: ALT 68 U/L (21-72); AST 34 U/L (17-59); Alkaline Phosphatase 49 U/L (38-126); Anion Gap 11 mmol/L; Blood Urea Nitrogen 12 mg/dL (9-20); Calcium 9.7 mg/dL (8.4-10.2); Carbon Dioxide 26 mmol/L (22-30); Chloride 106 mmol/L (98-107); Glucose 152 mg/dL (74-99); Magnesium 2.2 mg/dL (1.6-2.3); Non-African American GFR(MDRD) >60 (>60 ml/min/1.73 sqM); Potassium 4.1 mmol/L (3.5-5.1); Sodium 143 mmol/L (137-145); Total Bilirubin 0.4 mg/dL (0.2-1.3)
[2016-08-13 01:46] LABS: Creatine Kinase 120 U/L (55-170)
[2016-08-13 01:58] LABS: Creatine Kinase MB 0.6 ng/mL (0.0-2.4); Troponin I <0.012 ng/mL (0.000-0.034)
[2016-08-13 01:59] LABS: INR 0.9 (<1.1); Partial Thromboplastin Time 23.2 sec (22.0-30.0); Prothrombin Time 9.5 sec (9.0-12.0)
== END 2016-08-13 01:53 | disposition left against medical advice (07) ==
LOC: EC 23:51
DX: I20.0 Unstable angina (principal); F25.9 Schizoaffective disorder, unspecified; E78.5 Hyperlipidemia, unspecified; Z87.891 Personal history of nicotine dependence; Z79.899 Other long term (current) drug therapy; Z88.0 Allergy status to penicillin; Z82.49 Family history of ischemic heart disease and other diseases of the circulatory system
CPT/HCPCS: 99285; 96374; 36415; 85379; 80053; 82550; 82553; 83690; 83735; 84484; 85025; 85610; 85730; J2270; 93005

== ENCOUNTER 2016-08-14 14:33 | Inpatient (IN) | payer MEDICARE, MEDICAID ==
--- NOTE | 2016-08-14 15:25 | ED ---
Psych HPI - General Source: patient Mode of arrival: ambulatory <Jason Maguire - Last Filed: 08/14/16 17:05> <Blake Herrera - Last Filed: 08/14/16 19:16> - General Chief Complaint: Psychiatric Symptoms Stated Complaint: mental health Time Seen by Provider: 08/14/16 14:52 - History of Present Illness Initial Comments: This is a 45-year-old male with a history of schizoaffective disorder. He used to be controlled well on Abilify and Haldol. He states that he stop taking these medications because his friend told him to stop taking them. He states that today he was driving any had some severe anxiety and a panic attack. He was struck to the emergency department for evaluation. Family at bedside states that he needs to be seen by mental health because he has been off his medications. The patient denies any suicidal or homicidal ideation. (Jason Maguire ) - Related Data Home Medications Medication Instructions Recorded Confirmed ARIPiprazole [Abilify] 10 mg PO DAILY 07/17/16 08/14/16 Niacin [Niaspan] 1,000 mg PO HS 07/17/16 08/14/16 Ascorbic Acid [Vitamin C] 500 mg PO DAILY 07/18/16 08/14/16 Vitamin B Complex 1 cap PO DAILY 07/18/16 08/14/16 Previous Rx's Medication Instructions Recorded Atorvastatin [Lipitor] 40 mg PO DAILY 30 Days 12/28/15 metFORMIN HCL [Glucophage] 500 mg PO BID 30 Days 12/28/15 Omeprazole [PriLOSEC] 20 mg PO AC-BRKFST #30 cap 07/19/16 Allergies Allergy/AdvReac Type Severity Reaction Status Date / Time Penicillins Allergy Unknown Verified 08/14/16 15:09 Childhood Review of Systems ROS Other: All systems not noted in ROS Statement are negative. <Jason Maguire - Last Filed: 08/14/16 17:05> ROS Other: All systems not noted in ROS Statement are negative. <Blake Herrera - Last Filed: 08/14/16 19:16> ROS Statement: Those systems with pertinent positive or pertinent negative responses have been documented in the HPI. Past Medical History Past Medical History: Diabetes Mellitus, Hyperlipidemia History of Any Multi-Drug Resistant Organisms: None Reported Past Surgical History: No Surgical Hx Reported Past Anesthesia/Blood Transfusion Reactions: No Reported Reaction Past Psychological History: Anxiety, Schizoaffective Disorder Smoking Status: Former smoker Past Alcohol Use History: Occasional Additional Past Alcohol Use History / Comment(s): He is a smoker of one half pack per day for 15 years - he just quit beginning of jun 2016 Patient states that he drinks alcohol once or twice weekly. He denies any street drug use. Patient is single. He has a 13-year-old daughter that is healthy. 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 Past Drug Use History: None Reported - Past Family History Mother History Unknown: Yes Additional Family Medical History / Comment(s): Mother is 75 years of age and he is unsure of her past medical history. Father History Unknown: Yes Additional Family Medical History / Comment(s): Father is alive at age 75 with history of coronary artery disease. Daughter(s) Family Medical History: No Reported History Brother(s) Family Medical History: No Reported History Additional Family Medical History / Comment(s): He has 2 brothers with no major medical problems. <Jason Maguire - Last Filed: 08/14/16 17:05> General Exam Limitations: no limitations <Jason Maguire - Last Filed: 08/14/16 17:05> <Blake Herrera - Last Filed: 08/14/16 19:16> - General Exam Comments Initial Comments: Constitutional: Awake alert Appears comfortable Head: Normocephalic atraumatic Eyes: no conjunctival injection No scleral icterus EOMI Neck: No JVD Supple Heart: Regular rate rhythm normal S1-S2 no murmurs Lungs: Clear to auscultation bilaterally No wheezing No rales Abdomen: Soft nondistended nontender Extremities: Non edematous DP pulses intact Radial pulses intact Neuro: A&Ox3 No focal neurologic deficits Psych: Appropriate mood and affect (Jason Maguire) Medical Decision Making <Jason Maguire - Last Filed: 08/14/16 17:05> <Blake Herrera - Last Filed: 08/14/16 19:16> - Medical Decision Making Patient's care transferred to Dr. Herrera (Jason Maguire) - Lab Data Lab Results 08/14/16 Range/Units 16:00 Urine Opiates Screen Not Detected (NotDetected) Ur Oxycodone Screen Not Detected (NotDetected) Urine Methadone Screen Not Detected (NotDetected) Ur Propoxyphene Screen Not Detected (NotDetected) Ur Barbiturates Screen Not Detected (NotDetected) U Tricyclic Antidepress Not Detected (NotDetected) Ur Phencyclidine Scrn Not Detected (NotDetected) Ur Amphetamines Screen Not Detected (NotDetected) U Methamphetamines Scrn Not Detected (NotDetected) U Benzodiazepines Scrn Not Detected (NotDetected) Urine Cocaine Screen Not Detected (NotDetected) U Marijuana (THC) Screen Not Detected (NotDetected) Disposition <Jason Maguire - Last Filed: 08/14/16 17:05> Time of Disposition: 19:16 <Blake Herrera - Last Filed: 08/14/16 19:16> Clinical Impression: Schizoaffective disorder Disposition: ADMITTED IP TO THIS [facility] Condition: Fair
[2016-08-14] MEDS ORDERED: MAG HYDROX/AL HYDROX/SIMETH 30 ML CUP PO PRN (18:47)
[2016-08-14] MEDS ORDERED: MAGNESIUM HYDROXIDE 2,400 MG/10 ML CUP PO PRN (18:47)
[2016-08-14] MEDS ORDERED: ZIPRASIDONE 20 MG VIAL IM PRN (18:47)
[2016-08-14] MEDS ORDERED: ACETAMINOPHEN TAB 325 MG TAB PO PRN (18:47)
[2016-08-14] MEDS ORDERED: LORazepam 1 MG TAB PO PRN (18:49)
[2016-08-14] MEDS ORDERED: LORazepam 2 MG/ML SYRINGE IM PRN (18:49)
[2016-08-14 20:48] VITALS: BMI 31.9
[2016-08-14] MEDS: NIACIN TR 500 MG CAPSULE.ER PO SCH (20:52)
[2016-08-14] MEDS: metFORMIN 500 MG TAB PO SCH (20:52)
[2016-08-14 20:57] LABS: Glucose,Whole Blood 112 mg/dL (75-99)
[2016-08-14] MEDS: NICOTINE 14MG/24HR PATCH TRANSDERM SCH (21:03)
[2016-08-15 06:14] LABS: Glucose,Whole Blood 121 mg/dL (75-99)
[2016-08-15] MEDS: PANTOPRAZOLE 40 MG TABLET PO SCH (08:11)
[2016-08-15] MEDS: NICOTINE 14MG/24HR PATCH TRANSDERM SCH (08:11)
[2016-08-15] MEDS: metFORMIN 500 MG TAB PO SCH ×2 (08:11→20:31)
[2016-08-15] MEDS: ATORVASTATIN 40 MG TAB PO SCH (08:11)
[2016-08-15 09:01] LABS: Basophils # (A) 0.1 k/uL (0-0.2); Basophils % (A) 1 %; CH 31.6; CHCM 34.9; Eosinophils # (A) 0.1 k/uL (0-0.7); Eosinophils % (A) 1 %; HCT 43.4 % (39.0-53.0); HGB 14.9 gm/dL (13.0-17.5); Luc # (Auto) 0.31; Luc % (Auto) 3; Lymphocytes # (A) 3.4 k/uL (1.0-4.8); Lymphocytes % (A) 29 %; MCH 31.3 pg (25.0-35.0); MCHC 34.4 g/dL (31.0-37.0); Mean Platelet Volume 7.6; Monocytes # (A) 0.5 k/uL (0-1.0); Monocytes % (A) 4 %; Neutrophils # (A) 7.4 k/uL (1.3-7.7); Neutrophils % (A) 63 %; RBC 4.77 m/uL (4.30-5.90); RDW 12.3 % (11.5-15.5); WBC 11.8 k/uL (3.8-10.6); WBC (Perox) 12.34
[2016-08-15 09:13] LABS: Hemoglobin A1C 6.4 % (4.2-6.1)
[2016-08-15 09:40] LABS: Anion Gap 11 mmol/L; Blood Urea Nitrogen 9 mg/dL (9-20); Calcium 9.2 mg/dL (8.4-10.2); Carbon Dioxide 24 mmol/L (22-30); Chloride 108 mmol/L (98-107); Glucose 182 mg/dL (74-99); Non-African American GFR(MDRD) >60 (>60 ml/min/1.73 sqM); Potassium 4.4 mmol/L (3.5-5.1); Sodium 143 mmol/L (137-145)
[2016-08-15] MEDS: ASCORBIC ACID 500 MG TAB PO SCH (11:52)
[2016-08-15] MEDS: B COMPLEX-VIT C-VIT E-ZINC 1 EACH TAB PO SCH (11:52)
[2016-08-15 11:54] LABS: Glucose,Whole Blood 126 mg/dL (75-99)
--- NOTE | 2016-08-15 12:36 | CONS ---
DATE OF CONSULTATION: 08/15/2016 REASON FOR CONSULTATION: Medical management requested Dr. Goldsmith. CONSULTATION: This is a pleasant 45-year-old patient of Dr. Zelaya'avni with a diagnosis of schizoaffective disorder, diabetes mellitus type 2, hyperlipidemia. The patient has been on Abilify and Haldol. Patient's friend told him who has a PhD about some side effects and patient stopped the medication about 2 weeks ago. Patient been feeling extremely anxious, then anxiety, then decided to come to the ER and get admitted REVIEW OF SYSTEMS: CONSTITUTIONAL: Tired. HEENT: None. RESPIRATORY: None. CARDIOVASCULAR: None. GASTROINTESTINAL: None. GENITOURINARY: None. MUSCULOSKELETAL: None. DERMATOLOGICAL: None. HEMATOLOGICAL: None. PSYCHIATRY: Very anxious. NEUROLOGICAL: None. Past medical history of diabetes mellitus type 2, hyperlipidemia, schizoaffective disorder. PAST SURGICAL HISTORY: None. SOCIAL HISTORY: The patient smoked 1-1/2 pack for 15 years; stopped about a month ago. ( ). Drinks alcohol twice weekly. 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 FAMILY HISTORY: Noncontributory to presentation. HOME MEDICATIONS: 1. Metformin 500 mg p.o. b.i.d. 2. Vitamin B complex 1 capsule p.o. daily. 3. Prilosec 20 mg at breakfast. 4. Niacin 1000 mg p.o. q.h.s. 5. Lipitor 40 p.o. daily. 6. Vitamin C 500 mg p.o. daily. 7. Abilify 10 mg p.o. daily. Allergies to PENICILLIN. On examination, temperature 97.9, pulse 74, respirations 16, blood pressure 131/55, pulse ox 98% on room air. GENERAL APPEARANCE: Average build, BMI of 31, lying in bed, tired-appearing. EYES: Pupils equal. Conjunctivae normal. HEENT: External appearance of nose and ears normal. Oral cavity normal. NECK: JVD not raised. Mass not palpable. Respiratory effort normal. Lungs are clear. CARDIOVASCULAR: First and second sounds normal. No edema. ABDOMEN: Soft, nontender. Liver and spleen not palpable. LYMPHATIC: No lymph nodes palpable in neck or axillae. PSYCHIATRY: Alert and oriented x3. Mood and affect very anxious-appearing. NEUROLOGICAL: Pupils equal. Cranial nerves grossly intact. Power and sensation grossly intact. INVESTIGATIONS: White count 9.8, hemoglobin 14.9. Potassium 4.4. BUN and creatinine are normal. ASSESSMENT: 1. Possibly acute flare-up of schizoaffective disorder. The patient stopped taking his Abilify and Haldol about 2 weeks ago after discussion with a friend. 2. Diabetes mellitus type 2, on oral hypoglycemic. 3. Hyperlipidemia. 4. Obesity, body mass index of 31.9. PLAN: His home medications will be resumed. Patient is counseled about taking his medications. Accu-Cheks will be followed. Antipsychotics as per Psychiatry. Patient is to follow with Dr. Zelaya upon discharge. Patient should also see a dietitian regarding his obesity. Thank you, Dr. Goldsmith.
[2016-08-15] MEDS ORDERED: ARIPiprazole 400 MG VIAL IM ONE (12:58)
[2016-08-15 17:34] LABS: Glucose,Whole Blood 110 mg/dL (75-99)
--- NOTE | 2016-08-15 19:25 | HP ---
DATE OF ADMISSION: 08/14/2016 DATE OF SERVICE: 08/15/2016 IDENTIFYING DATA AND HISTORY OF PRESENT ILLNESS: Patient is a 45-year-old male who was referred to the mental health unit from the emergency room on a voluntary basis. Patient has a long-term history of mental illness with diagnosis of schizoaffective disorder. His last hospitalization was December 27, 2015. Patient has been followed by Dr. Ornelas for almost 12 years. Patient said that he stopped the Haldol decanoate because "I don't like antipsychotic medication. I just need something for depression." It seems that the patient was started on Abilify 10 mg for the last 6 to 7 months; however, he stated that he has been not taking any psychotropic medication for 2 weeks. Then he started having trouble sleeping at night, high anxiety, irrational fear, to the point that he got very confused with his anxiety and paranoia and his brother Tejas brought him to the ER, saying that the patient has been very confused; he came to his house at 11:00 at night, then he left and went to his other brother at 3 a.m., then he left and decided to drive to [place] to see his daughter, as he was worried about her. But he ended up getting lost and called his brother Tejas to come to get him. At that time patient was in [place]. Patient was very vague, evasive. When I did ask him about any hallucinations, he said, "I'm not schizophrenic. I am just stressed out." From the medical record, patient does believe that there is spiritual activity in his condo; he is even thinking that bad spirits make things fly off the shelf, and he does believe that he is surrounded by spirits. He even tried to seek a power manager to get rid of the bad spirits in his condo. Patient denied any suicidal or homicidal ideation. He denied feeling hopeless or helpless. He described very high anxiety and "I'm just worried about everything." PAST PSYCHIATRIC HISTORY: Patient has had multiple psychiatric hospitalizations. His last hospitalization was from December 27, 2015, until December 28, 2015, with the diagnosis of schizoaffective disorder versus schizophrenia. MEDICATION: Patient was stable on Haldol decanoate 50 mg IM every month, and he was taking Wellbutrin 150 mg daily. MEDICAL HISTORY: Patient's primary care physician is Dr. Yanez. He has a history of: 1. Diabetes mellitus, type 2. 2. Hyperlipidemia. 3. Vitamin D3 deficiency. ALLERGY: PENICILLIN. Vital signs at the time of the admission were temperature 97.9, pulse 74, respiration 16, blood pressure 130/68. SUBSTANCE ABUSE HISTORY: Patient denied any alcohol or street drug use. Smoking: He has been smoking 1 pack a day. LABS: White blood cells are slight increased at 11.8. Chloride is likely high at 108. His fasting blood sugar was 126. His hemoglobin A1c is high at 6.4. Urine drug screen is negative. SOCIAL HISTORY: From the record, it seems that the patient is on Social Security Disability for mental illness and he has been living with his parents. He is a high school graduate. He spends most of his time focusing on music. MENTAL STATUS EXAMINATION: Patient is an overweight male who is casually dressed. He does not give any eye contact. There is psychomotor retardation. He answers most of the question with one word. His thought process is tangential. He seems paranoid, suspicious, responding to internal stimuli. Affect is constricted. He denied any suicidal or homicidal ideation. He denied any auditory or visual hallucination. There is a lot of ( ) delusion. Cognitive function is intact. His insight and judgment are limited. INTELLECTUAL FUNCTION: Average. STRENGTHS: He has very supportive family. WEAKNESSES: Chronic mental health issues, compliance with oral medication. DIAGNOSES: 1. Schizoaffective disorder versus schizophrenia, paranoid type. 2. Diabetes and hyperlipidemia. 3. Psychosocial dysfunction due to psychosis and poor compliance with Abilify for the last 2 weeks. PLAN: The patient has been admitted to the mental health unit on a voluntary basis. I did review his symptoms and medication options. He did agree to take injection. I will start him on Abilify 300 mg IM and will continue Abilify 15 mg for the next 2 weeks. I will treat his thought disorder, then evaluate whether he needs anything for depression or not. Will request a routine medical consultation. Social Work will meet with the patient to complete psychosocial assessment. Will monitor him for safety and encourage him to participate in the milieu.
[2016-08-15] MEDS: NIACIN TR 500 MG CAPSULE.ER PO SCH (20:31)
[2016-08-16 06:42] LABS: Glucose,Whole Blood 115 mg/dL (75-99)
[2016-08-16] MEDS: metFORMIN 500 MG TAB PO SCH ×2 (08:12→20:13)
[2016-08-16] MEDS: PANTOPRAZOLE 40 MG TABLET PO SCH (08:12)
[2016-08-16] MEDS: ATORVASTATIN 40 MG TAB PO SCH (08:12)
[2016-08-16] MEDS ORDERED: ARIPiprazole 15 MG TAB PO SCH (09:00)
[2016-08-16] MEDS: NICOTINE 14MG/24HR PATCH TRANSDERM SCH (09:06)
--- NOTE | 2016-08-16 12:28 | P.PN ---
Progress Note - Text Interval history: The patient is found in his room he follows me to an interview room. 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 He does feel tired.,stated that he could not sleep last night as "I do not feel comfortable sharing room with someone", patient endorses persecutory and voodoo delusion "I DO FEEL LOT OF BAD SPIRITS ON THIS UNIT",patient talked about his 13 years old daughter living three and half hours away and his worries about her ,he said that she is playing [employer] and writing music "I WISH TO SEE HER MORE THAN ONCE A MONTH" Mental status exam: The patient is alert he seated calmly ,avoiding eyes contact , answers questions asked. He denies suicidal or homicidal ideation . He continues to feel uncomfortable to be around people He is demonstrating no verbal or physical aggressiveness. No abnormal involuntary movements. Insight and judgment limited. He endorses no auditory or visual hallucinations.however seems responding to internal cues and preoccupied , endorses mixed delusion Plan: Increase oral Abilify 30 mg ,received injection yesterday He is encouraged to participate in the milieu more. We will monitor him for safety.and any side-effects from medication
[2016-08-16] MEDS: ASCORBIC ACID 500 MG TAB PO SCH (12:29)
[2016-08-16] MEDS: B COMPLEX-VIT C-VIT E-ZINC 1 EACH TAB PO SCH (12:29)
[2016-08-16 17:03] LABS: Glucose,Whole Blood 117 mg/dL (75-99)
[2016-08-16] MEDS: NIACIN TR 500 MG CAPSULE.ER PO SCH (20:13)
[2016-08-16] MEDS: ARIPiprazole 15 MG TAB PO SCH (20:13)
[2016-08-17 05:57] LABS: Glucose,Whole Blood 110 mg/dL (75-99)
[2016-08-17] MEDS: metFORMIN 500 MG TAB PO SCH ×2 (08:24→21:25)
[2016-08-17] MEDS: ARIPiprazole 15 MG TAB PO SCH ×2 (08:24→21:25)
[2016-08-17] MEDS: PANTOPRAZOLE 40 MG TABLET PO SCH (08:24)
[2016-08-17] MEDS: ATORVASTATIN 40 MG TAB PO SCH (08:24)
[2016-08-17] MEDS: NICOTINE 14MG/24HR PATCH TRANSDERM SCH (08:25)
--- NOTE | 2016-08-17 09:20 | P.PN ---
Progress Note - Text Interval history: The patient came to office asking to talk to me He is demanding to be discharged to go back to outpatient because "It is very depressing place ,I do feel tortured when I see other patients ,they are very sick",patient is not participating in any group ,isolating himself and withdrawn ,he talked again what happened prior to admission "I was worried about my daughter and I was not sleeping ",denies any hallucination ,denies any appetite problem ,slept 4 hours last night as he felt "Uncomfortable ",he stated that he does not trust anyone outside family members except "CHEY",he denies any side-effect from psychotropic medication VITALS :Temp:97.6 ,Pulse 113,BP:136/72 Mental status exam: The patient is alert he seated calmly ,avoiding eyes contact ,,guarded ,evasive, answers questions asked. He denies suicidal or homicidal ideation . He continues to feel uncomfortable to be around people He is demonstrating no verbal or physical aggressiveness. No abnormal involuntary movements. Insight and judgment limited. He endorses no auditory or visual hallucinations.,no idea of reference, endorses some paranoia and he is gnosticist preoccupied . Plan: Continue oral Abilify 30 mg ,he received Abilify Maintaina on 08/15 ,order EKG as his pulse is 113 He is encouraged to participate in the milieu more. We will monitor him for safety.and any side-effects from medication
[2016-08-17] MEDS ORDERED: traZODone HCL 100 MG TAB PO PRN (10:04)
[2016-08-17] MEDS: ASCORBIC ACID 500 MG TAB PO SCH (12:39)
[2016-08-17] MEDS: B COMPLEX-VIT C-VIT E-ZINC 1 EACH TAB PO SCH (12:39)
[2016-08-17 18:08] LABS: Glucose,Whole Blood 114 mg/dL (75-99)
[2016-08-17] MEDS: NIACIN TR 500 MG CAPSULE.ER PO SCH (21:25)
[2016-08-18 06:25] LABS: Glucose,Whole Blood 110 mg/dL (75-99)
[2016-08-18] MEDS: metFORMIN 500 MG TAB PO SCH ×2 (08:31→20:47)
[2016-08-18] MEDS: PANTOPRAZOLE 40 MG TABLET PO SCH (08:31)
[2016-08-18] MEDS: ARIPiprazole 15 MG TAB PO SCH ×2 (08:31→20:47)
[2016-08-18] MEDS: ATORVASTATIN 40 MG TAB PO SCH (08:31)
[2016-08-18] MEDS: B COMPLEX-VIT C-VIT E-ZINC 1 EACH TAB PO SCH (12:23)
[2016-08-18] MEDS: ASCORBIC ACID 500 MG TAB PO SCH (12:23)
[2016-08-18 17:03] LABS: Glucose,Whole Blood 121 mg/dL (75-99)
--- NOTE | 2016-08-18 17:14 | P.PN ---
Progress Note - Text SUBJECTIVE: I reviewed, medical record and interviewed Mr. Sinclair. He is a 45-year-old male who has a history of a schizoaffective disorder. He presented to the psychiatric unit voluntarily with anxiety, paranoia and increased confusion. He talked about attempting to visit his daughter in [place] but only succeeded in his visiting with friends. At some point he experienced a panic attack at a pharmacy. He called his brother who brother him to the hospital. He denied current problems or concerns other than wishing to be discharged. 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 He guided me to his website on [employer] and we are able to listen to some his songs. He boasted that one of his songs called "Faby Pollard" features his 13-year-old daughter. He denied feeling depressed or having thoughts of or suicide. He denied feeling anxious or experiencing psychotic symptoms such as auditory or visual hallucinations, ideas reference, thought insertion, thought broadcasting or thought control. OBJECTIVE: He presented as a casually groomed malodorous 45-year-old male with male pattern balding. He was pleasant on approach and appeared to attend to the interview. He had no distinguishing features or prominent physical abnormalities. He had a flat facial expression. He was alert and oriented to person, place and time. He showed slight psychomotor retardation and involuntary movements of his fingers and toes. His affect was flat and unreactive. He denied suicidal ideation or wishes. He denied homicidal ideation. He denied depressive cognitions such as hopelessness, helplessness and worthlessness. He did not express ideas reference or paranoid ideation. He demonstrated poverty of speech and poverty of content of speech. Otherwise, his thinking was organized and coherent. He denied hallucinations and did not appear to be responding to internal stimuli. ASSESSMENT: He has poor hygiene and negative symptoms of schizoaffective disorder. Overall, he appears moderately mentally ill and moderately improved from admission. PLAN: Continue inpatient hospitalization. Continue Abilify 15 mg by mouth twice a day, and trazodone 100 mg at bedtime when necessary for sleep. Continue Ativan 1 mg by mouth/IM every 8 hours when necessary for anxiety or agitation and/or Geodon 20 mg IM twice a day when necessary for agitation acute psychosis. Encourage participation in therapeutic activities. Evaluate clinical status response to treatment on a daily basis.
[2016-08-18] MEDS: NIACIN TR 500 MG CAPSULE.ER PO SCH (20:47)
--- NOTE | 2016-08-18 21:24 | CONS ---
DATE OF CONSULTATION: 08/28/2016 Mr. Sinclair is a 45-year-old male with history of sick cycle affective disorder, diabetes, hypertension, hyperlipidemia, who presented with a flare-up of schizoaffective disorder. Cardiology consultation was requested because of abnormality on EKG. The patient was recently admitted early in July with symptoms of chest discomfort, at that time had no evidence of myocardial infarction but had a stress test where he had persistent EKG changes. Subsequently because of persistent symptoms, he underwent cardiac catheterization on the july that revealed no evidence of obstructive coronary artery disease with preserved left ventricular size and systolic function. Patient has occasional episodes of chest discomfort when he is under stress. He denies any palpitations. He has mild dyspnea. No significant arrhythmia. No dizziness. No syncope. No PND, orthopnea. No peripheral edema. His coronary risk factors are remarkable for prior history of smoking, history of diabetes, hyperlipidemia. His medications at the time of admission included Prilosec, Lipitor 40 mg daily, vitamin C, Abilify, niacin and metformin 500 mg twice a day. REVIEW OF SYSTEMS: RESPIRATORY SYSTEM: He has no recent wheezing. No cough. GI SYSTEM: No recent GI bleeding. No peptic ulcer disease. SYSTEM: No dysuria or hematuria. NERVOUS SYSTEM: No stroke or seizure. PHYSICAL EXAMINATION: A 45-year-old male no apparent distress. Blood pressure 124/70 with a heart in the 60s. HEAD: Normocephalic. EYES: Sclerae anicteric. NECK: Good upstroke. No bruit. No jugular venous distention. LUNGS: Clear to auscultation. HEART: Regular rate and rhythm. S1, S2, no S3, no S4, no rub. ABDOMEN: Soft, nontender, positive bowel sounds. No organomegaly. EXTREMITIES: No edema. Intact distal pulses. EKG revealed sinus mechanism, normal axis and intervals, with nonspecific ST-T wave changes. IMPRESSION: 1. Borderline abnormal EKG with no evidence of obstructive coronary artery disease by cardiac catheterization done on the of July of this year and a normal systolic function. 2. Schizoaffective disorder. 3. Diabetes. 4. Hyperlipidemia. 5. Prior history of smoking. RECOMMENDATIONS: From the cardiac standpoint, there is no evidence of any cardiac abnormality at this time. No further cardiac work-up will be needed. We will see him on an as needed basis. Please feel free to call us for any questions.
[2016-08-19 06:55] VITALS: TEMP 97.9
[2016-08-19 06:58] LABS: Glucose,Whole Blood 119 mg/dL (75-99)
[2016-08-19] MEDS: ATORVASTATIN 40 MG TAB PO SCH (09:54)
[2016-08-19] MEDS: metFORMIN 500 MG TAB PO SCH ×2 (09:54→22:42)
[2016-08-19] MEDS: PANTOPRAZOLE 40 MG TABLET PO SCH (09:54)
[2016-08-19] MEDS: ARIPiprazole 15 MG TAB PO SCH ×2 (09:54→22:42)
[2016-08-19] MEDS: B COMPLEX-VIT C-VIT E-ZINC 1 EACH TAB PO SCH (13:00)
[2016-08-19] MEDS: ASCORBIC ACID 500 MG TAB PO SCH (13:00)
--- NOTE | 2016-08-19 14:39 | P.PN ---
Progress Note - Text SUBJECTIVE: I reviewed, medical record and interviewed Mr. Sinclair. He complained of feeling sleepy and sluggish; "I usually feel that way when I take Abilify." He denied feeling depressed or having thoughts of or suicide. He denied feeling anxious or having experienced these panic attack. He denied psychotic symptoms such as auditory or visual hallucinations, ideas reference, thought insertion, thought broadcasting or thought control. He is anxious about discharge. OBJECTIVE: He presented as a casually groomed malodorous 45-year-old male with male pattern balding. He was pleasant on approach and appeared to attend to the interview. He had no distinguishing features or prominent physical abnormalities. He had a blunted facial expression. He was alert and oriented to person, place and time. He showed slight psychomotor retardation and involuntary movements of his fingers and toes. His affect was blunted. He denied suicidal ideation or wishes. He denied homicidal ideation. He denied depressive cognitions such as hopelessness, helplessness and worthlessness. He did not express ideas reference or paranoid ideation. He demonstrated poverty of speech and poverty of content of speech. Otherwise, his thinking was organized and coherent. He denied hallucinations and did not appear to be responding to internal stimuli. ASSESSMENT: Sedation possibly due to current dose of Abilify. Overall, he appears moderately mentally ill and moderately improved from admission. PLAN: Continue inpatient hospitalization. Continue Abilify 15 mg by mouth twice a day, and trazodone 100 mg at bedtime when necessary for sleep. Continue Ativan 1 mg by mouth/IM every 8 hours when necessary for anxiety or agitation and/or Geodon 20 mg IM twice a day when necessary for agitation acute psychosis. Encourage participation in therapeutic activities. Evaluate clinical status response to treatment on a daily basis.
[2016-08-19 16:55] LABS: Glucose,Whole Blood 115 mg/dL (75-99)
[2016-08-19 20:37] LABS: Glucose,Whole Blood 160 mg/dL (75-99)
[2016-08-19] MEDS: NIACIN TR 500 MG CAPSULE.ER PO SCH (22:42)
[2016-08-20 06:30] LABS: Glucose,Whole Blood 113 mg/dL (75-99)
[2016-08-20] MEDS: metFORMIN 500 MG TAB PO SCH (08:10)
[2016-08-20] MEDS: PANTOPRAZOLE 40 MG TABLET PO SCH (08:10)
[2016-08-20] MEDS: ATORVASTATIN 40 MG TAB PO SCH (08:10)
[2016-08-20] MEDS: ARIPiprazole 15 MG TAB PO SCH (08:13)
[2016-08-20 08:15] VITALS: BP 133/64; RESP 20
[2016-08-20] MEDS ORDERED: LORazepam 0.5 MG TAB PO STA (08:38)
[2016-08-20] MEDS: B COMPLEX-VIT C-VIT E-ZINC 1 EACH TAB PO SCH (12:41)
[2016-08-20] MEDS: ASCORBIC ACID 500 MG TAB PO SCH (12:41)
[2016-08-20 12:44] VITALS: PULSE 103
[2016-08-20] MEDS ORDERED: ARIPiprazole 15 MG TAB PO SCH (21:00)
--- NOTE | 2016-08-21 10:07 | DS ---
DATE OF ADMISSION: 08/14/2016 DATE OF DISCHARGE: 08/20/2016 DISCHARGE DIAGNOSES: 1. Schizoaffective disorder. 2. Anxiety disorder, not otherwise specified. Brief summary of the admission note: The patient was admitted to the Mental Health Unit from the emergency room on voluntary basis due to paranoia, confusion, not sleeping or eating for at least a couple of weeks. Patient has been seeing Dr. Ornelas for almost 10 to 12 years. Our nursing staff did contact the outpatient and his outpatient psychiatrist did recommend admission to start him on him long-acting antipsychotic. At the admission, patient was very mormon preoccupied. He thought that there is spiritual activity in his condo where he is living with his parent. Even he was thinking that this spirit makes things fly off the shelf. He was trying to seek a local telephone operator to get rid of this bad spirit from the condo but he denied any auditory or visual hallucination, and he denied suicidal or homicide ideation at the time of the admission. For complete history and physical exam, please refer to my evaluation on August 15. Summary of the hospital course: The patient was admitted on voluntary basis. Once he was admitted to the Mental Health Unit, I did review his symptom and psychiatric medication and I did discuss with him that would start him on Abilify Maintena and he did receive 300 mg IM on August 15. Patient assumed that he will be discharged the same day; however, I did explain to him that usually he has to be on oral medication for 2 weeks and I do prefer that he will stay on the inpatient unit to be closely monitored for any psych side effect from psychotropic medication. During his hospitalization, patient did not participate in any group despite a lot of encouragement from the staff. He was very resistant saying, "I don't feel comfortable to be on this unit." His vital signs during his stay, usually his blood pressure is within normal limits. However, he was running regarding it was between 109 to 113, so we did order EKG, it came back abnormal and we did consult the casino cashier, Dr. Julieta Goldsmith who stated that the patient was recently admitted to the hospital under his care in the first week of July with the symptoms of chest discomfort. He had a stress test where he had persistent EKG change, so he did have cardiac catheterization on July 19 that revealed no evidence of obstructive coronary artery disease. So he stated that based on this, especially he has normal systolic function, he does not recommend any further cardiac work-up and he stated that he can see him as needed. Patient was started on Abilify but I increased the dose to 15 mg twice a day. I continued his Lipitor, metformin, vitamin B complex, vitamin C, Prilosec. 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 I did ask him that he needs to be her on the weekend to closely monitor him on the weekend. Dr. Kelsey was covering and it seems that he was more opened up and comfortable with him and even he did talk with him about the musical performance that he was supposed to do and he did let him to listen to his music as he guided him to his website. On August 20, patient was more opened up and he talked about his daughter and he stated that she has a lot of common with him as she does play music like him and she always has at least one performance a month in her school. MENTAL STATUS EXAMINATION: At the time of the discharge, patient presented as casually groomed, male, not shaved, but he was pleasant on approach. He has a flat facial expression. He denied suicidal or homicidal ideation. He denied any depressive symptoms as hopeless or helpless. He denied feeling worthless. He denied any psychotic feature. He did not express any idea of reference or paranoia or any hallucination. He does demonstrate poverty of speech and poverty of the content of speech; otherwise, his thinking is organized and coherent and he does not appear to be responding to internal stimuli. He did cognitive test and he did score 27 from 30 in the memory testing and it seems that he is able to concentrate more in the math. There is no verbal or physical aggression observed. DISCHARGE DIAGNOSES: 1. Schizoaffective disorder. 2. Anxiety disorder. PLAN: 1. The patient will be discharged from the Mental Health Unit today to return back home to live with his parent. 2. Patient will see Dr. Ornelas for psychiatric care. 3. Patient will be on oral Abilify 30 mg for another 2 weeks and then discontinue. 4. Patient is due for Abilify Maintena 300 mg injection on September 12. 5. Patient was given 10 tablets of Ativan 0.5 to take as needed for anxiety. 6. Patient has to follow up with his primary care physician regarding his medical problem, especially regarding his abnormal EKG; however, it was cleared by our casino cashier, Dr. Goldsmith. The patient stated that he wanted to start seeing therapist to discuss issue that he is missing his daughter, but he stated that he will contact the outpatient on his own. There is no eminent safety risk and patient is appropriate for transition back to the outpatient care. There is no access to any firearms. Patient was instructed to return to the emergency room if any acute safety concern. Patient's condition at the time of the discharge stable.
== END 2016-08-20 13:34 | disposition home or self-care (01) | DRG 885 ==
LOC: EC 14:33 → 3MHU 18:43
PROVIDERS: ADMIT Psychiatry & Neurology Psychiatry; ATTEND Psychiatry & Neurology Psychiatry
DX: F25.9 Schizoaffective disorder, unspecified (principal); E11.9 Type 2 diabetes mellitus without complications; I10 Essential (primary) hypertension; E66.9 Obesity, unspecified; E78.5 Hyperlipidemia, unspecified; F41.0 Panic disorder [episodic paroxysmal anxiety]; E55.9 Vitamin D deficiency, unspecified; R94.31 Abnormal electrocardiogram [ECG] [EKG]; F41.9 Anxiety disorder, unspecified; F17.200 Nicotine dependence, unspecified, uncomplicated; Z68.31 Body mass index [BMI] 31.0-31.9, adult; Z79.84 Long term (current) use of oral hypoglycemic drugs; Z79.899 Other long term (current) drug therapy; Z88.0 Allergy status to penicillin; Z82.49 Family history of ischemic heart disease and other diseases of the circulatory system
CPT/HCPCS: 80048; 80306; 82075; 83036; 84443; 85025; 93005; 99284; 99285

== ENCOUNTER 2017-07-07 01:22 | Emergency (ER) | payer MEDICARE, OTHER ==
[2017-07-07 01:41] VITALS: RESP 16; TEMP 97.7
[2017-07-07] MEDS ORDERED: KETOROLAC 30 MG/ML 1 ML VIAL IVP STA (02:10)
[2017-07-07] MEDS ORDERED: SODIUM CHLORIDE 0.9% 1,000 ML IV STA (02:10)
--- NOTE | 2017-07-07 02:27 | ED ---
General Adult HPI - General Chief complaint: Abdominal Pain Stated complaint: L Flank Pain Time Seen by Provider: 07/07/17 01:49 Source: patient, RN notes reviewed Mode of arrival: ambulatory Limitations: no limitations - History of Present Illness Initial comments: 46-year-old male presents to the emergency department with a chief complaint of left-sided flank pain. Patient states that this pain started about a week ago. This is been a constant pain. Nothing seems to make the pain better or worse. There is no falls traumas or injuries. He denies any changes in urination with this pain. He denies any nausea or vomiting. He states is just in this constant discomfort so he thought that he should be seen. She denies any history of pain at this in the past.Patient denies any recent fever, chills , shortness of breath, chest pain, nausea vomiting, numbness or tingling, dysuria or hematuria, constipation or diarrhea, headaches or visual changes, or any other current symptoms. - Related Data Home Medications Medication Instructions Recorded Confirmed Niacin [Niaspan] 1,000 mg PO HS 07/17/16 08/14/16 Ascorbic Acid [Vitamin C] 500 mg PO DAILY 07/18/16 08/14/16 Vitamin B Complex 1 cap PO DAILY 07/18/16 08/14/16 Previous Rx's Medication Instructions Recorded Atorvastatin [Lipitor] 40 mg PO DAILY 30 Days tab 12/28/15 metFORMIN HCL [Glucophage] 500 mg PO BID 30 Days tab 12/28/15 Omeprazole [PriLOSEC] 20 mg PO AC-BRKFST #30 cap 07/19/16 ARIPiprazole [Abilify Maintena] 300 mg IM QMONTH 1 Days vial 08/20/16 ARIPiprazole [Abilify] 30 mg PO HS 14 Days tab 08/20/16 LORazepam [Ativan] 0.5 mg PO DAILY PRN #10 tab 08/20/16 Ibuprofen [Motrin] 600 mg PO Q6HR PRN #20 tab 07/07/17 Allergies Allergy/AdvReac Type Severity Reaction Status Date / Time Penicillins Allergy Unknown Verified 07/07/17 01:41 Childhood Review of Systems ROS Statement: Those systems with pertinent positive or pertinent negative responses have been documented in the HPI. ROS Other: All systems not noted in ROS Statement are negative. Past Medical History Past Medical History: Diabetes Mellitus, Hyperlipidemia History of Any Multi-Drug Resistant Organisms: None Reported Past Surgical History: No Surgical Hx Reported Past Anesthesia/Blood Transfusion Reactions: No Reported Reaction Past Psychological History: Anxiety, Schizoaffective Disorder Smoking Status: Current every day smoker Past Alcohol Use History: None Reported Past Drug Use History: None Reported - Past Family History Mother History Unknown: Yes Additional Family Medical History / Comment(s): Mother is 75 years of age and he is unsure of her past medical history. Father History Unknown: Yes Additional Family Medical History / Comment(s): Father is alive at age 75 with history of coronary artery disease. Daughter(s) Family Medical History: No Reported History Brother(s) Family Medical History: No Reported History Additional Family Medical History / Comment(s): He has 2 brothers with no major medical problems. General Exam - General Exam Comments Initial Comments: General: The patient is awake and alert, in no distress, and does not appear acutely ill. Eye: Pupils are equal, round and reactive to light, extra-ocular movements are intact; there is normal conjunctiva bilaterally. No signs of icterus. Ears, nose, mouth and throat: There are moist mucous membranes. Neck: The neck is supple, there is no tenderness. Cardiovascular: There is a regular rate and rhythm. No murmur, rub or gallop is appreciated. Respiratory: Lungs are clear to auscultation, respirations are non-labored, breath sounds are equal. No wheezes, stridor, rales, or rhonchi. Gastrointestinal: Soft, non-distended, non-tender abdomen without masses or organomegaly noted. There is no rebound or guarding present. No CVA tenderness. Bowel sounds are unremarkable. Back: There is no tenderness to palpation in the midline. There is no obvious deformity. No rashes noted. Musculoskeletal: Normal ROM, no tenderness, There is no pedal edema. There is no calf tenderness or swelling. Sensation intact. Pulses equal bilaterally 2+. Neurological: CN II-XII intact, There are no obvious motor or sensory deficits. Coordination appears grossly intact. Speech is normal. Skin: Skin is warm and dry and no rashes or lesions are noted. Psychiatric: Cooperative, appropriate mood & affect, normal judgment. Limitations: no limitations Course Vital Signs 07/07/17 01:36 Temperature 97.7 F Pulse Rate 82 Respiratory 16 Rate Blood Pressure 135/70 O2 Sat by Pulse 98 Oximetry Medical Decision Making - Medical Decision Making 46-year-old male presents to the emergency department with a chief complaint of left flank pain. This and patient's CAT scan and lab work is been reviewed. At this time we discussed possible etiologies for the pain. At this time we did discuss using Motrin as prescribed for control. We did discuss follow-up with his doctor we discussed return parameters all questions. Patient stated that he understood and he is agreement this plan. All questions have been answered. He will be discharged. - Lab Data Result diagrams: 07/07/17 02:33 07/07/17 02:33 Lab Results 07/07/17 07/07/17 07/07/17 Range/Units 02:33 02:33 02:33 WBC 11.7 H (3.8-10.6) k/uL RBC 4.79 (4.30-5.90) m/uL Hgb 14.3 (13.0-17.5) gm/dL Hct 42.3 (39.0-53.0) % MCV 88.2 (80.0-100.0) fL MCH 29.8 (25.0-35.0) pg MCHC 33.8 (31.0-37.0) g/dL RDW 12.3 (11.5-15.5) % Plt Count 327 (150-450) k/uL Neutrophils % 49 % Lymphocytes % 42 % Monocytes % 4 % Eosinophils % 2 % Basophils % 1 % Neutrophils # 5.8 (1.3-7.7) k/uL Lymphocytes # 4.9 H (1.0-4.8) k/uL Monocytes # 0.5 (0-1.0) k/uL Eosinophils # 0.2 (0-0.7) k/uL Basophils # 0.1 (0-0.2) k/uL Sodium 141 (137-145) mmol/L Potassium 4.5 (3.5-5.1) mmol/L Chloride 103 (98-107) mmol/L Carbon Dioxide 26 (22-30) mmol/L Anion Gap 12 mmol/L BUN 15 (9-20) mg/dL Creatinine 0.70 (0.66-1.25) mg/dL Est GFR (MDRD) Af Amer >60 (>60 ml/min/1.73 sqM) Est GFR (MDRD) Non-Af >60 (>60 ml/min/1.73 sqM) Glucose 187 H (74-99) mg/dL Calcium 9.7 (8.4-10.2) mg/dL Total Bilirubin 0.2 (0.2-1.3) mg/dL AST 23 (17-59) U/L ALT 51 (21-72) U/L Alkaline Phosphatase 53 (38-126) U/L Total Protein 7.2 (6.3-8.2) g/dL Albumin 4.3 (3.5-5.0) g/dL Amylase 31 (30-110) U/L Lipase 83 (23-300) U/L Urine Color Yellow Urine Appearance Clear (Clear) Urine pH 5.5 (5.0-8.0) Ur Specific [place] 1.021 (1.001-1.035) Urine Protein Trace H (Negative) Urine Glucose (UA) 2+ H (Negative) Urine Ketones Negative (Negative) Urine Blood Negative (Negative) Urine Nitrite Negative (Negative) Urine Bilirubin Negative (Negative) Urine Urobilinogen <2.0 (<2.0) mg/dL Ur Leukocyte Esterase Negative (Negative) - Radiology Data Radiology results: report reviewed, image reviewed Disposition Clinical Impression: Left flank pain Disposition: HOME SELF-CARE Condition: Stable Instructions: Abdominal Pain (ED) Additional Instructions: Please use medication as discussed. Please follow up with family doctor if symptoms have not improved over the next two days. Please return to the emergency room if your symptoms increase or worsen or for any other concerns. Prescriptions: Ibuprofen [Motrin] 600 mg PO Q6HR PRN #20 tab PRN Reason: Pain Referrals: Red Yanez MD [Primary Care Provider] - 1-2 days Time of Disposition: 03:19
[2017-07-07 02:50] LABS: Appearance,Urine Clear (Clear); Bilirubin,Urine Negative (Negative); Blood,Urine Negative (Negative); Color,Urine Yellow; Glucose,Urine (UA) 2+ (Negative); Ketones,Urine Negative (Negative); Leukocyte Esterase,Urine Negative (Negative); Nitrite,Urine Negative (Negative); PH, Urine 5.5 (5.0-8.0); Protein,Urine Trace (Negative); Specific Gravity,Urine 1.021 (1.001-1.035); Urobilinogen,Urine <2.0 mg/dL (<2.0)
[2017-07-07 02:53] LABS: Basophils # (A) 0.1 k/uL (0-0.2); Basophils % (A) 1 %; Eosinophils # (A) 0.2 k/uL (0-0.7); Eosinophils % (A) 2 %; HCT 42.3 % (39.0-53.0); HGB 14.3 gm/dL (13.0-17.5); Lymphocytes # (A) 4.9 k/uL (1.0-4.8); Lymphocytes % (A) 42 %; MCH 29.8 pg (25.0-35.0); MCHC 33.8 g/dL (31.0-37.0); MCV 88.2 fL (80.0-100.0); Mean Platelet Volume 7.1; Monocytes # (A) 0.5 k/uL (0-1.0); Monocytes % (A) 4 %; Neutrophils # (A) 5.8 k/uL (1.3-7.7); Neutrophils % (A) 49 %; Platelet Count 327 k/uL (150-450); RBC 4.79 m/uL (4.30-5.90); RDW 12.3 % (11.5-15.5); WBC 11.7 k/uL (3.8-10.6)
[2017-07-07 02:59] LABS: ALT 51 U/L (21-72); AST 23 U/L (17-59); Albumin 4.3 g/dL (3.5-5.0); Alkaline Phosphatase 53 U/L (38-126); Amylase 31 U/L (30-110); Anion Gap 12 mmol/L; Blood Urea Nitrogen 15 mg/dL (9-20); Calcium 9.7 mg/dL (8.4-10.2); Carbon Dioxide 26 mmol/L (22-30); Chloride 103 mmol/L (98-107); Glucose 187 mg/dL (74-99); Lipase 83 U/L (23-300); Potassium 4.5 mmol/L (3.5-5.1); Sodium 141 mmol/L (137-145); Total Bilirubin 0.2 mg/dL (0.2-1.3); Total Protein 7.2 g/dL (6.3-8.2)
--- NOTE | 2017-07-07 03:09 | CT ---
EXAMINATION TYPE: CT abdomen pelvis wo con DATE OF EXAM: 07/07/2017 COMPARISON: NONE HISTORY: LUQ pain CT DLP: 854.20 mGycm Automated exposure control for dose reduction was used. TECHNIQUE: Helical acquisition of images was performed from the lung bases through the pelvis. FINDINGS: Lung bases are clear. There is no pleural effusion. Heart size is normal. Liver spleen pancreas appear normal. There is a small calcified gallstone. Bile ducts are not dilated . There is no adrenal mass. Kidneys show normal size and contour. There is no hydronephrosis. There is no retroperitoneal adenopathy. There is no ascites. I see no intestinal wall thickening. There are no dilated loops. There is no sign of free air. Appendix appears normal. There is bilateral L5 spondylo lysis. There is a minimal 5 mm L5-S1 spondylolisthesis. IMPRESSION: NEGATIVE CT SCAN OF THE ABDOMEN AND PELVIS. I DO NOT SEE A CAUSE FOR LEFT UPPER QUADRANT PAIN. NORMAL APPENDIX. SMALL CALCIFIED GALLSTONE. NO DILATED DUCTS. L5 SPONDYLOLYSIS WITH MINIMAL L5-S1 SPONDYLOLISTHESIS.
[2017-07-07 03:37] VITALS: BP 121/56; PULSE 68
== END 2017-07-07 03:37 | disposition home or self-care (01) ==
LOC: EC 01:22
DX: R10.9 Unspecified abdominal pain (principal); F17.200 Nicotine dependence, unspecified, uncomplicated; Z79.899 Other long term (current) drug therapy; Z88.0 Allergy status to penicillin
CPT/HCPCS: 99284; 96374; 36415; 80053; 82150; 83690; 85025; 81003; 87086; 74176; J1885

== ENCOUNTER 2017-07-11 02:33 | Emergency (ER) | payer MEDICARE, OTHER ==
--- NOTE | 2017-07-11 02:57 | ED ---
Abdominal Pain HPI - General Chief Complaint: Abdominal Pain Stated Complaint: side pain Time Seen by Provider: 07/11/17 02:43 Source: patient Mode of arrival: ambulatory Limitations: no limitations - History of Present Illness Initial Comments: 46-year-old male patient presents to the emergency department today for complaints of left flank pain. Patient states he is at this pain for approximately one month. He states that he was seen and evaluated here approximately one week ago and diagnosed with a muscle strain. States that he was prescribed ibuprofen but has not been taking it for his symptoms. He states that today he noticed a rash over the area. He states that the pain is located specifically to the left flank, denies any radiation of the pain. He denies any cough or congestion. He states that he is urinating more frequently but denies any hematuria, dysuria, or urinary urgency. Patient denies any recent fever, chills, shortness breath, chest pain, abdominal pain, nausea, vomiting, diarrhea, constipation, back pain, numbness, tingling, dizziness, weakness, headache, visual changes, or any other complaints. - Related Data Home Medications Medication Instructions Recorded Confirmed Niacin [Niaspan] 1,000 mg PO HS 07/17/16 08/14/16 Ascorbic Acid [Vitamin C] 500 mg PO DAILY 07/18/16 08/14/16 Vitamin B Complex 1 cap PO DAILY 07/18/16 08/14/16 Previous Rx's Medication Instructions Recorded Atorvastatin [Lipitor] 40 mg PO DAILY 30 Days tab 12/28/15 metFORMIN HCL [Glucophage] 500 mg PO BID 30 Days tab 12/28/15 Omeprazole [PriLOSEC] 20 mg PO AC-BRKFST #30 cap 07/19/16 ARIPiprazole [Abilify Maintena] 300 mg IM QMONTH 1 Days vial 08/20/16 ARIPiprazole [Abilify] 30 mg PO HS 14 Days tab 08/20/16 LORazepam [Ativan] 0.5 mg PO DAILY PRN #10 tab 08/20/16 Ibuprofen [Motrin] 600 mg PO Q6HR PRN #20 tab 07/07/17 Allergies Allergy/AdvReac Type Severity Reaction Status Date / Time Penicillins Allergy Unknown Verified 07/11/17 02:39 Childhood Review of Systems ROS Statement: Those systems with pertinent positive or pertinent negative responses have been documented in the HPI. ROS Other: All systems not noted in ROS Statement are negative. Past Medical History Past Medical History: Diabetes Mellitus, Hyperlipidemia History of Any Multi-Drug Resistant Organisms: None Reported Past Surgical History: No Surgical Hx Reported Past Anesthesia/Blood Transfusion Reactions: No Reported Reaction Past Psychological History: Anxiety, Schizoaffective Disorder Smoking Status: Current some day smoker Past Alcohol Use History: None Reported Past Drug Use History: None Reported - Past Family History Mother History Unknown: Yes Additional Family Medical History / Comment(s): Mother is 75 years of age and he is unsure of her past medical history. Father History Unknown: Yes Additional Family Medical History / Comment(s): Father is alive at age 75 with history of coronary artery disease. Daughter(s) Family Medical History: No Reported History Brother(s) Family Medical History: No Reported History Additional Family Medical History / Comment(s): He has 2 brothers with no major medical problems. General Exam Limitations: no limitations General appearance: alert, in no apparent distress, other (This is a well- developed, well-nourished adult male patient in no acute distress. Vital signs upon presentation are temperature 97.4F, pulse 86, respirations 17, blood pressure 132/64, pulse ox 98% on room air.) Eye exam: Present: normal appearance, PERRL, EOMI. Absent: scleral icterus, conjunctival injection, periorbital swelling ENT exam: Present: normal exam, normal oropharynx, mucous membranes moist Respiratory exam: Present: normal lung sounds bilaterally. Absent: respiratory distress, wheezes, rales, rhonchi, stridor Cardiovascular Exam: Present: regular rate, normal rhythm, normal heart sounds. Absent: systolic murmur, diastolic murmur, rubs, gallop, clicks GI/Abdominal exam: Present: soft, normal bowel sounds. Absent: distended, tenderness, guarding, rebound, rigid Back exam: Present: rash noted (Erythematous confluent macular rash noted to the left flank, nonvesicular, non-petechial, non-urticarial) Neurological exam: Present: alert, oriented X3, CN II-XII intact Psychiatric exam: Present: normal affect, normal mood Skin exam: Present: warm, dry, intact, normal color. Absent: rash Course Vital Signs 07/11/17 02:36 Temperature 97.4 F L Pulse Rate 86 Respiratory 17 Rate Blood Pressure 132/64 O2 Sat by Pulse 98 Oximetry Medical Decision Making - Medical Decision Making 46-year-old male patient percents to the emergency department today for complaints of left flank pain and rash. Physical examination did reveal an erythematous patch to the left flank region. Patient had mild tenderness over the left flank. Urinalysis was negative for any acute process. Did review labs and computed tomography scan from previous visit approximately one week ago , these results are unremarkable. I discussed findings with the patient, he is instructed to follow up with his primary care physician. He is instructed to return here immediately for any new, worsening, or concerning symptoms. He verbalizes understanding and agrees with this plan. - Lab Data Lab Results 07/11/17 Range/Units 03:07 Urine Color Yellow Urine Appearance Clear (Clear) Urine pH 5.0 (5.0-8.0) Ur Specific [place] 1.017 (1.001-1.035) Urine Protein Trace H (Negative) Urine Glucose (UA) Negative (Negative) Urine Ketones Negative (Negative) Urine Blood Negative (Negative) Urine Nitrite Negative (Negative) Urine Bilirubin Negative (Negative) Urine Urobilinogen <2.0 (<2.0) mg/dL Ur Leukocyte Esterase Negative (Negative) Disposition Clinical Impression: Flank pain, Rash Disposition: HOME SELF-CARE Condition: Good Instructions: Acute Rash (ED), Flank Pain (ED) Additional Instructions: Follow-up with her primary care physician as soon as possible. Return here immediately for any new, worsening, or concerning symptoms. Referrals: Red Yanez MD [Primary Care Provider] - 1-2 days Time of Disposition: 03:51
[2017-07-11 03:26] LABS: Appearance,Urine Clear (Clear); Bilirubin,Urine Negative (Negative); Blood,Urine Negative (Negative); Color,Urine Yellow; Glucose,Urine (UA) Negative (Negative); Ketones,Urine Negative (Negative); Leukocyte Esterase,Urine Negative (Negative); Nitrite,Urine Negative (Negative); Protein,Urine Trace (Negative); Specific Gravity,Urine 1.017 (1.001-1.035); Urobilinogen,Urine <2.0 mg/dL (<2.0)
[2017-07-11 03:53] VITALS: BP 106/58; PULSE 75; RESP 16; TEMP 97.9
== END 2017-07-11 03:56 | disposition home or self-care (01) ==
LOC: EC 02:33
DX: R10.9 Unspecified abdominal pain (principal); R21 Rash and other nonspecific skin eruption; L53.9 Erythematous condition, unspecified; R35.0 Frequency of micturition; E78.5 Hyperlipidemia, unspecified; F17.200 Nicotine dependence, unspecified, uncomplicated; Z88.0 Allergy status to penicillin; Z79.899 Other long term (current) drug therapy
CPT/HCPCS: 81003; 99284

== ENCOUNTER 2017-07-17 20:28 | Inpatient (IN) | payer MEDICARE, MEDICAID ==
[2017-07-17 22:00] LABS: Appearance,Urine Clear (Clear); Bilirubin,Urine Negative (Negative); Blood,Urine Negative (Negative); Color,Urine Light Yellow; Glucose,Urine (UA) Negative (Negative); Ketones,Urine Negative (Negative); Leukocyte Esterase,Urine Negative (Negative); Nitrite,Urine Negative (Negative); Protein,Urine Negative (Negative); Specific Gravity,Urine 1.013 (1.001-1.035); Urobilinogen,Urine <2.0 mg/dL (<2.0)
[2017-07-17 22:04] LABS: Glucose,Whole Blood 133 mg/dL (75-99)
--- NOTE | 2017-07-17 22:06 | ED ---
Anxiety HPI - General Chief Complaint: Anxiety Stated Complaint: Diabetes; anxiety Time Seen by Provider: 07/17/17 21:20 Source: patient, family Mode of arrival: ambulatory - History of Present Illness Initial Comments: This patient is a 46-year-old man who presents with the complaint of anxiety. The patient states he is worried about his diabetes and whether he is managing it properly, including medications and diet. The patient's brother is here with him and adds that the patient has stopped taking his Abilify and has not been functioning well. Patient's brother states that the last time he was like this he had to be admitted to the behavioral health unit. MD Complaint: anxiety -: unknown Symptoms: sense of impending doom Place: home Previous History of Same: Yes Severity: severe Quality: constant Provoking factors: medication change - Related Data Home Medications: Home Medications Medication Instructions Recorded Confirmed Niacin [Niaspan] 1,000 mg PO HS 07/17/16 07/17/17 Ascorbic Acid [Vitamin C] 500 mg PO DAILY 07/18/16 07/17/17 Vitamin B Complex 1 cap PO DAILY 07/18/16 07/17/17 Acyclovir [Zovirax] 800 mg PO TID 07/17/17 07/17/17 Atorvastatin [Lipitor] 40 mg PO HS 07/17/17 07/17/17 Gabapentin [Neurontin] 100 mg PO TID 07/17/17 07/17/17 HYDROcodone/APAP 5-325MG [[place] 1 tab PO TID PRN 07/17/17 07/17/17 5-325] Multivitamins, Thera [Multivitamin 1 tab PO DAILY 07/17/17 07/17/17 (formulary)] Sulfamethox-Tmp 800-160Mg [Bactrim 1 tab PO Q12HR 07/17/17 07/17/17 DS 800-160 mg] valACYclovir HCL [Valtrex] 1,000 mg PO Q8HR 07/17/17 07/17/17 Previous Rx's Medication Instructions Recorded metFORMIN HCL [Glucophage] 500 mg PO BID 30 Days tab 12/28/15 Omeprazole [PriLOSEC] 20 mg PO AC-BRKFST #30 cap 07/19/16 ARIPiprazole [Abilify Maintena] 300 mg IM QMONTH 1 Days vial 08/20/16 LORazepam [Ativan] 0.5 mg PO DAILY PRN #10 tab 08/20/16 Ibuprofen [Motrin] 600 mg PO Q6HR PRN #20 tab 07/07/17 Allergies/Adverse Reactions: Allergies Allergy/AdvReac Type Severity Reaction Status Date / Time Penicillins Allergy Unknown Verified 07/17/17 21:38 Childhood Review of Systems ROS Statement: Those systems with pertinent positive or pertinent negative responses have been documented in the HPI. ROS Other: All systems not noted in ROS Statement are negative. Constitutional: Denies: fever, chills Eyes: Denies: vision change Respiratory: Denies: cough, dyspnea Cardiovascular: Denies: chest pain, palpitations Gastrointestinal: Denies: abdominal pain, vomiting, diarrhea Genitourinary: Denies: dysuria Musculoskeletal: Denies: back pain Skin: Denies: rash Neurological: Denies: headache, weakness Past Medical History Past Medical History: Diabetes Mellitus, Hyperlipidemia, Hypertension History of Any Multi-Drug Resistant Organisms: None Reported Past Surgical History: No Surgical Hx Reported Past Anesthesia/Blood Transfusion Reactions: No Reported Reaction Past Psychological History: Anxiety, Schizoaffective Disorder Smoking Status: Current some day smoker Past Alcohol Use History: None Reported Past Drug Use History: None Reported - Past Family History Mother History Unknown: Yes Additional Family Medical History / Comment(s): Mother is 75 years of age and he is unsure of her past medical history. Father History Unknown: Yes Additional Family Medical History / Comment(s): Father is alive at age 75 with history of coronary artery disease. Daughter(s) Family Medical History: No Reported History Brother(s) Family Medical History: No Reported History Additional Family Medical History / Comment(s): He has 2 brothers with no major medical problems. General Exam Limitations: no limitations General appearance: alert, anxious Head exam: Present: atraumatic, normocephalic Eye exam: Present: normal appearance. Absent: scleral icterus, conjunctival injection ENT exam: Present: normal oropharynx Respiratory exam: Present: normal lung sounds bilaterally. Absent: respiratory distress, wheezes, rales, rhonchi, stridor Cardiovascular Exam: Present: regular rate, normal rhythm, normal heart sounds. Absent: systolic murmur, diastolic murmur, rubs, gallop GI/Abdominal exam: Present: soft. Absent: distended, tenderness, guarding, rebound, mass Extremities exam: Present: normal inspection, normal capillary refill. Absent: pedal edema, calf tenderness Back exam: Present: normal inspection. Absent: CVA tenderness (R), CVA tenderness (L) Neurological exam: Present: alert, normal gait Psychiatric exam: Present: anxious. Absent: agitated, flat affect, manic, homicidal ideation, suicidal ideation Skin exam: Present: warm, dry, intact, normal color. Absent: rash Course Vital Signs 07/17/17 07/18/17 20:44 01:47 Temperature 96.9 F L Pulse Rate 83 74 Respiratory 20 18 Rate Blood Pressure 136/84 119/64 O2 Sat by Pulse 99 97 Oximetry Medical Decision Making - Lab Data Result diagrams: 07/17/17 22:15 07/17/17 22:15 Lab Results 07/17/17 07/17/17 07/17/17 Range/Units 21:24 21:43 21:43 WBC (3.8-10.6) k/uL RBC (4.30-5.90) m/uL Hgb (13.0-17.5) gm/dL Hct (39.0-53.0) % MCV (80.0-100.0) fL MCH (25.0-35.0) pg MCHC (31.0-37.0) g/dL RDW (11.5-15.5) % Plt Count (150-450) k/uL Neutrophils % % Lymphocytes % % Monocytes % % Eosinophils % % Basophils % % Neutrophils # (1.3-7.7) k/uL Lymphocytes # (1.0-4.8) k/uL Monocytes # (0-1.0) k/uL Eosinophils # (0-0.7) k/uL Basophils # (0-0.2) k/uL Sodium (137-145) mmol/L Potassium (3.5-5.1) mmol/L Chloride (98-107) mmol/L Carbon Dioxide (22-30) mmol/L Anion Gap mmol/L BUN (9-20) mg/dL Creatinine (0.66-1.25) mg/dL Est GFR (MDRD) Af Amer (>60 ml/min/1.73 sqM) Est GFR (MDRD) Non-Af (>60 ml/min/1.73 sqM) Glucose (74-99) mg/dL POC Glucose (mg/dL) 133 H (75-99) mg/dL POC Glu Snuff Blender ID Ampar[place] Calcium (8.4-10.2) mg/dL TSH (0.465-4.680) mIU/L Urine Color Light Yellow Urine Appearance Clear (Clear) Urine pH 6.0 (5.0-8.0) Ur Specific [place] 1.013 (1.001-1.035) Urine Protein Negative (Negative) Urine Glucose (UA) Negative (Negative) Urine Ketones Negative (Negative) Urine Blood Negative (Negative) Urine Nitrite Negative (Negative) Urine Bilirubin Negative (Negative) Urine Urobilinogen <2.0 (<2.0) mg/dL Ur Leukocyte Esterase Negative (Negative) Urine Opiates Screen Not Detected (NotDetected) Ur Oxycodone Screen Not Detected (NotDetected) Urine Methadone Screen Not Detected (NotDetected) Ur Propoxyphene Screen Not Detected (NotDetected) Ur Barbiturates Screen Not Detected (NotDetected) U Tricyclic Antidepress Not Detected (NotDetected) Ur Phencyclidine Scrn Not Detected (NotDetected) Ur Amphetamines Screen Not Detected (NotDetected) U Methamphetamines Scrn Not Detected (NotDetected) U Benzodiazepines Scrn Detected H (NotDetected) Urine Cocaine Screen Not Detected (NotDetected) U Marijuana (THC) Screen Not Detected (NotDetected) 07/17/17 07/17/17 Range/Units 22:15 22:15 WBC 9.6 (3.8-10.6) k/uL RBC 4.34 (4.30-5.90) m/uL Hgb 13.2 (13.0-17.5) gm/dL Hct 37.5 L (39.0-53.0) % MCV 86.6 (80.0-100.0) fL MCH 30.4 (25.0-35.0) pg MCHC 35.1 (31.0-37.0) g/dL RDW 12.3 (11.5-15.5) % Plt Count 307 (150-450) k/uL Neutrophils % 52 % Lymphocytes % 37 % Monocytes % 6 % Eosinophils % 2 % Basophils % 0 % Neutrophils # 5.0 (1.3-7.7) k/uL Lymphocytes # 3.6 (1.0-4.8) k/uL Monocytes # 0.6 (0-1.0) k/uL Eosinophils # 0.2 (0-0.7) k/uL Basophils # 0.0 (0-0.2) k/uL Sodium 141 (137-145) mmol/L Potassium 4.4 (3.5-5.1) mmol/L Chloride 107 (98-107) mmol/L Carbon Dioxide 22 (22-30) mmol/L Anion Gap 12 mmol/L BUN 16 (9-20) mg/dL Creatinine 0.90 (0.66-1.25) mg/dL Est GFR (MDRD) Af Amer >60 (>60 ml/min/1.73 sqM) Est GFR (MDRD) Non-Af >60 (>60 ml/min/1.73 sqM) Glucose 108 H (74-99) mg/dL POC Glucose (mg/dL) (75-99) mg/dL POC Glu Snuff Blender ID Calcium 9.5 (8.4-10.2) mg/dL TSH 1.430 (0.465-4.680) mIU/L Urine Color Urine Appearance (Clear) Urine pH (5.0-8.0) Ur Specific [place] (1.001-1.035) Urine Protein (Negative) Urine Glucose (UA) (Negative) Urine Ketones (Negative) Urine Blood (Negative) Urine Nitrite (Negative) Urine Bilirubin (Negative) Urine Urobilinogen (<2.0) mg/dL Ur Leukocyte Esterase (Negative) Urine Opiates Screen (NotDetected) Ur Oxycodone Screen (NotDetected) Urine Methadone Screen (NotDetected) Ur Propoxyphene Screen (NotDetected) Ur Barbiturates Screen (NotDetected) U Tricyclic Antidepress (NotDetected) Ur Phencyclidine Scrn (NotDetected) Ur Amphetamines Screen (NotDetected) U Methamphetamines Scrn (NotDetected) U Benzodiazepines Scrn (NotDetected) Urine Cocaine Screen (NotDetected) U Marijuana (THC) Screen (NotDetected) Disposition Clinical Impression: Schizoaffective disorder, Anxiety Disposition: ADMITTED IP TO THIS HOSP Condition: Fair
[2017-07-17 22:28] LABS: Basophils % (A) 0 %; Eosinophils # (A) 0.2 k/uL (0-0.7); Eosinophils % (A) 2 %; HCT 37.5 % (39.0-53.0); HGB 13.2 gm/dL (13.0-17.5); Lymphocytes # (A) 3.6 k/uL (1.0-4.8); Lymphocytes % (A) 37 %; MCH 30.4 pg (25.0-35.0); MCHC 35.1 g/dL (31.0-37.0); MCV 86.6 fL (80.0-100.0); Mean Platelet Volume 7.1; Monocytes # (A) 0.6 k/uL (0-1.0); Monocytes % (A) 6 %; Neutrophils % (A) 52 %; Platelet Count 307 k/uL (150-450); RBC 4.34 m/uL (4.30-5.90); RDW 12.3 % (11.5-15.5); WBC 9.6 k/uL (3.8-10.6)
[2017-07-17 22:39] LABS: Anion Gap 12 mmol/L; Blood Urea Nitrogen 16 mg/dL (9-20); Calcium 9.5 mg/dL (8.4-10.2); Carbon Dioxide 22 mmol/L (22-30); Chloride 107 mmol/L (98-107); Glucose 108 mg/dL (74-99); Potassium 4.4 mmol/L (3.5-5.1); Sodium 141 mmol/L (137-145)
[2017-07-17 22:48] LABS: Amphetamine Screen,Urine Not Detected (NotDetected); Barbiturate Screen,Urine Not Detected (NotDetected); Benzodiazepines Screen,Urine Detected (NotDetected); Cocaine Screen,Urine Not Detected (NotDetected); Methadone Screen, Urine Not Detected (NotDetected); Opiate Screen,Urine Not Detected (NotDetected); Oxycodone Screen, Urine Not Detected (NotDetected); Phencyclidine Screen,Urine Not Detected (NotDetected); Tricyclic Antidepressant,Urine Not Detected (NotDetected); Urn Cannabinoid Scrn Not Detected (NotDetected)
[2017-07-18] MEDS ORDERED: MAGNESIUM HYDROXIDE 2,400 MG/10 ML CUP PO PRN (01:58)
[2017-07-18] MEDS: LORazepam 1 MG TAB PO PRN (04:00)
[2017-07-18 08:32] LABS: Cholesterol 144 mg/dL (<200); HDL Cholesterol 46 mg/dL (40-60); LDL Cholesterol,Calculated 73 mg/dL (0-99); Triglycerides 123 mg/dL (<150)
[2017-07-18 09:01] LABS: Glucose,Whole Blood 109 mg/dL (75-99)
[2017-07-18] MEDS: metFORMIN 500 MG TAB PO SCH ×3 (09:28→18:09)
[2017-07-18] MEDS: ARIPiprazole 10 MG TAB PO SCH (12:31)
[2017-07-18 12:38] LABS: Glucose,Whole Blood 112 mg/dL (75-99)
[2017-07-18] MEDS ORDERED: ARIPiprazole 400 MG VIAL (NO CHARGE) IM ONE (13:00)
--- NOTE | 2017-07-18 14:05 | P.HP ---
Psychiatric H&P - . H&P Date: 07/18/17 History & Physical: Allergies Allergy/AdvReac Type Severity Reaction Status Date / Time Penicillins Allergy Unknown Verified 07/17/17 21:38 Childhood Vital Signs Temp 97.0 F L 07/18/17 02:39 Pulse 80 07/18/17 02:39 Resp 16 07/18/17 02:39 BP 124/60 07/18/17 02:39 Pulse Ox 98 07/18/17 02:39 Intake & Output 07/17/17 07/18/17 07/18/17 18:59 06:59 18:59 Weight 96.434 kg Laboratory Last Values WBC 9.6 k/uL (3.8-10.6) 07/17/17 22:15 RBC 4.34 m/uL (4.30-5.90) 07/17/17 22:15 Hgb 13.2 gm/dL (13.0-17.5) 07/17/17 22:15 Hct 37.5 % (39.0-53.0) L 07/17/17 22:15 MCV 86.6 fL (80.0-100.0) 07/17/17 22:15 MCH 30.4 pg (25.0-35.0) 07/17/17 22:15 MCHC 35.1 g/dL (31.0-37.0) 07/17/17 22:15 RDW 12.3 % (11.5-15.5) 07/17/17 22:15 Plt Count 307 k/uL (150-450) 07/17/17 22:15 Neutrophils % 52 % 07/17/17 22:15 Lymphocytes % 37 % 07/17/17 22:15 Monocytes % 6 % 07/17/17 22:15 Eosinophils % 2 % 07/17/17 22:15 Basophils % 0 % 07/17/17 22:15 Neutrophils # 5.0 k/uL (1.3-7.7) 07/17/17 22:15 Lymphocytes # 3.6 k/uL (1.0-4.8) 07/17/17 22:15 Monocytes # 0.6 k/uL (0-1.0) 07/17/17 22:15 Eosinophils # 0.2 k/uL (0-0.7) 07/17/17 22:15 Basophils # 0.0 k/uL (0-0.2) 07/17/17 22:15 Sodium 141 mmol/L (137-145) 07/17/17 22:15 Potassium 4.4 mmol/L (3.5-5.1) 07/17/17 22:15 Chloride 107 mmol/L (98-107) 07/17/17 22:15 Carbon Dioxide 22 mmol/L (22-30) 07/17/17 22:15 Anion Gap 12 mmol/L 07/17/17 22:15 BUN 16 mg/dL (9-20) 07/17/17 22:15 Creatinine 0.90 mg/dL (0.66-1.25) 07/17/17 22:15 Est GFR (MDRD) Af Amer >60 (>60 ml/min/1.73 sqM) 07/17/17 22:15 Est GFR (MDRD) Non-Af >60 (>60 ml/min/1.73 sqM) 07/17/17 22:15 Glucose 108 mg/dL (74-99) H 07/17/17 22:15 POC Glucose (mg/dL) 112 mg/dL (75-99) H 07/18/17 12:24 POC Glu [employer] Amparo Rodrigez 07/18/17 12:24 Calcium 9.5 mg/dL (8.4-10.2) 07/17/17 22:15 Triglycerides 123 mg/dL (<150) 07/18/17 07:52 Cholesterol 144 mg/dL (<200) 07/18/17 07:52 LDL Cholesterol, Calc 73 mg/dL (0-99) 07/18/17 07:52 HDL Cholesterol 46 mg/dL (40-60) 07/18/17 07:52 TSH 1.430 mIU/L (0.465-4.680) 07/17/17 22:15 Urine Color Light Yellow 07/17/17 21:43 Urine Appearance Clear (Clear) 07/17/17 21:43 Urine pH 6.0 (5.0-8.0) 07/17/17 21:43 Ur Specific [place] 1.013 (1.001-1.035) 07/17/17 21:43 Urine Protein Negative (Negative) 07/17/17 21:43 Urine Glucose (UA) Negative (Negative) 07/17/17 21:43 Urine Ketones Negative (Negative) 07/17/17 21:43 Urine Blood Negative (Negative) 07/17/17 21:43 Urine Nitrite Negative (Negative) 07/17/17 21:43 Urine Bilirubin Negative (Negative) 07/17/17 21:43 Urine Urobilinogen <2.0 mg/dL (<2.0) 07/17/17 21:43 Ur Leukocyte Esterase Negative (Negative) 07/17/17 21:43 Urine Opiates Screen Not Detected (NotDetected) 07/17/17 21:43 Ur Oxycodone Screen Not Detected (NotDetected) 07/17/17 21:43 Urine Methadone Screen Not Detected (NotDetected) 07/17/17 21:43 Ur Propoxyphene Screen Not Detected (NotDetected) 07/17/17 21:43 Ur Barbiturates Screen Not Detected (NotDetected) 07/17/17 21:43 U Tricyclic Antidepress Not Detected (NotDetected) 07/17/17 21:43 Ur Phencyclidine Scrn Not Detected (NotDetected) 07/17/17 21:43 Ur Amphetamines Screen Not Detected (NotDetected) 07/17/17 21:43 U Methamphetamines Scrn Not Detected (NotDetected) 07/17/17 21:43 U Benzodiazepines Scrn Detected (NotDetected) H 07/17/17 21:43 Urine Cocaine Screen Not Detected (NotDetected) 07/17/17 21:43 U Marijuana (THC) Screen Not Detected (NotDetected) 07/17/17 21:43 07/18/17 13:52 Identification: Patient is a 46-year-old male who was brought to the emergency room by his brother after he had been contacting his mother on a daily basis stating that he was suicidal and on the day of the [place] stated that he wanted to be brought to the hospital History of Present Illness: Patient has been living in his parents home and they have been in [place] since March. Patient was last seen by his outpatient psychiatrist on 02/15/2017 and was to receive his monthly injection of Abilify on February 21. It is unclear if he received that injection but he has not been back to see his psychiatrist since the end of January and has not received medication since at least March. Her the petition the patient was contacting his mother on a daily basis stating he was having suicidal ideation, wanted to be taken to the hospital and his brother reported that the patient was anxious and nervous. Patient's mother contacted staff and reported that patient will minimize his symptoms. Patient was seen today and initially told me he was sleeping and then on second approach did calm to the office for the interview. Patient reports that he has not been taking Abilify because it caused him to change smoking use alcohol. He could not recall when he had last seen Dr. Ornelas or when his last injection of Abilify was. Patient states that he had a psychotic episode at age 16 and has had 6-7 admissions for psychotic breaks but could not tell me what symptoms he had. Patient denies any current symptoms and denies that he made any suicidal statements to his mother, denies that he is hearing voices, denies any paranoid ideation and states that the only problem he had was the Abilify making him a chain smoker and to use alcohol. Patient isn't unreliable historian as he denies all symptoms stating that he does not need medication or need to be here. Patient was most recently in the hospital in 2016. Patient has been maintained on Abilify min 10 at 300 mg every month and it is unclear if his last injection was in February or not. Patient has not been seen in the office of Dr. Ornelas since 02/15/2017. Past Psychiatric History: Patient states he has had treatment since the age of 16 and is unable to tell me how many prior hospitalizations he has had that he thinks that at least 6-7. He was hospitalized in this hospital in 2015 and again in 2017. Patient in the past was on Haldol decanoate as well as Wellbutrin. He is currently been maintained on Abilify Maintenna 300 mg a month. Past Medical/Surgical History: [Patient has type 2 diabetes, hyperlipidemia and a hernia. He states he has had no surgeries. It is unclear if the patient has shingles or not at this time.] Family History: Patient reports no family history of psychiatric disorders or alcohol or drug use Social History: Patient's parents are alive currently in [place] until September, he has to brothers. 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 He was for 3 years and has been for 14 and has a 14-year-old daughter who is currently living with her mother about 4 hours away. Patient is not currently employed. Substance Use History: Patient states he has no drug or alcohol history Legal History: Patient denies Mental status: Appearance/Attitude: Patient is dressed in a hospital gown and made no eye contact, looking around the room during the interview and was superficially cooperative. Behavior: Patient did not exhibit any psychomotor agitation or retardation. Speech/Language: Patient responded to questions in brief sentences, with little elaboration, he spoke in a normal volume and rhythm and he was coherent Thought Process: patient responded to questions briefly but was goal-directed there is no evidence of tangential or circumstantial thought and no loose associations or flight of ideas were elicited Thought Content: patient denied auditory or visual hallucinations and denied paranoid and delusional ideation. Patient denied any difficulties at home and denied feeling depressed, anxious and denied that he is not sleeping and eating well. Patient reported that the Abilify had made him become a chain smoker and abuse alcohol although later in the interview he denied that he had ever used alcohol. Suicidal/Homicidal Ideation: patient denied any current suicidal or homicidal ideation even when confronted with the fact that he had been calling his mother daily stating he was suicidal. Sensorium/Cognition: patient was alert and oriented to person, place, time and his recent and remote memory were not formally tested Mood/Affect: patient's mood was guarded and his affect was flat Insight/Judgment: patient's insight and judgment are impaired. Intellectual Functioning: patient's intellectual functioning appears average Strength/Weakness: patient has a stable living environment/noncompliance with medication Assessment: patient was brought to the hospital by his brother, petition was completed secondary to the patient calling his mother on a daily basis who is currently in [place] reporting that he was feeling suicidal and yesterday requesting that he be taken to the hospital. Patient has not been seen by his outpatient psychiatrist since the end of January and it is questionable whether his received his Abilify since the beginning of February or not. Patient currently is denying that he has any symptoms at all and states he doesn 't know why he is in the hospital and also states that he never made any suicidal statements to his mother. Patient states that he doesn't want to take Abilify because it made him become a chain smoker and uses alcohol although he had earlier stated that he had never used any alcohol or drugs. Patient also has a rash on his flank and it is unknown if this is shingles or not at this time. Admission Diagnosis: schizoaffective disorder, depressive type Plan: patient refused to sign in voluntarily and so a second certificate was completed. Patient was ordered group and activity therapy, routine observation and routine laboratory studies and a medical consultation was also requested. Patient and I discussed restarting the Abilify at 300 mg IM as well as Abilify 10 mg daily, the patient refused oral medication and stated that he does not want to take any medications. Patient requires hospitalization to further stabilize his mood. Patient will also be continued on his metformin 500 mg twice a day. 07/18/17 13:56 07/18/17 14:05 07/18/17 15:43
[2017-07-18 16:44] LABS: Hemoglobin A1C 6.9 % (4.0-6.0)
[2017-07-18 17:41] LABS: Glucose,Whole Blood 94 mg/dL (75-99)
--- NOTE | 2017-07-18 19:49 | CONS ---
CONSULTATION DATE OF CONSULTATION: 07/18/17. REASON FOR CONSULTATION: Medical management requested by Dr. Thurman. CONSULTATION: This is a 46-year-old patient of Dr. Yanez and patient's mother apparently is the guardian. The patient's chronic stable medical conditions include diabetes, hypertension, hyperlipidemia. The patient has a known history of anxiety, schizoaffective disorder. Apparently the patient has become very restless, not taking his medications. During my interview, the patient extremely fidgety, restless, cannot sit still, not able to answer some questions, cannot tell me really if he has been taking medications, becomes quite during the interview. The patient is brought into the ER. The patient was thinking he has shingles on his back. He has had this rash for 3 weeks. Occasional muscle spasm or lower back pain. Patient seems rather unsettled. REVIEW OF SYSTEMS: CONSTITUTIONAL: None. HEENT: None. RESPIRATORY: None. CARDIOVASCULAR: None. GASTROINTESTINAL: None. GENITOURINARY: None. MUSCULOSKELETAL: Some low back pain. DERMATOLOGICAL: Very superficial skin blush on the left side of the abdomen. LYMPHATICS: None. PSYCHIATRY: As above. NEUROLOGICAL: No tremble. PAST MEDICAL HISTORY: Schizoaffective disorder, anxiety, diabetes, hypertension, hyperlipidemia. PAST SURGICAL HISTORY: No surgical history. SOCIAL HISTORY: The patient smoked a pack and half for close to 15 years. Stopped about a year ago. Drinks alcohol occasionally. Denies use of any recreational drugs. The patient used to play musical gig around town. Denies any use recreational history. FAMILY HISTORY: The patient does not remember. HOME MEDICATIONS: 1. Metformin 500 mg p.o. b.i.d. 2. Prilosec 20 mg with breakfast. 3. [place] 5 one tab t.i.d. p.r.n. 4. Neurontin 100 mg t.i.d. 5. Lipitor 40 mg q.h.s. 6. Abilify 300 mg injections every month. 7. Zovirax. 8. Valtrex. 9. Bactrim DS. 10.Vitamin B complex. 11.Niacin. 12.Motrin. 13.Vitamin C. 14.Multivitamin. The patient has not been taking several of these medications. ALLERGIES: PENICILLIN. EXAMINATION: Temperature 97, pulse 80, respiration 16, blood pressure 124/60, pulse ox 98% on room air. GENERAL APPEARANCE: Well built, BMI 32.3, sitting up, fidgety. EYES: Pupils equal. Conjunctivae normal. HEENT: External appearance of nose and ears normal. Oral cavity normal. NECK: JVD not raised. Mass not palpable. RESPIRATORY: Effort normal. Lungs clear. CARDIOVASCULAR: First and second sounds normal. No edema. ABDOMEN: Soft, nontender. Liver and spleen not palpable. LYMPHATIC: No lymph node palpable in neck or axillae. PSYCHIATRY: Alert and oriented x3. Mood and affect very anxious-appearing and fidgety. NEUROLOGICAL: Cranial nerves grossly intact. Power and sensation grossly intact. INVESTIGATIONS: White count 9.6, hemoglobin 13.2, potassium 4.4. Accu-Cheks are noted. ALT 73. TSH normal. ASSESSMENT: 1. Diabetes mellitus type 2 on oral hypoglycemic. 2. Obesity BMI 32.3. 3. Hyperlipidemia. 4. Essential hypertension. 5. Psychiatry disorder defined now as schizoaffective disorder, depressive type. PLAN: At this point, I do not see any indication of any antibiotics or antiviral medication. The patient's oral hypoglycemic, antilipid medication will be resumed. Once discharge the patient should follow up with Dr. Yanez. I did also look at the patient's side. It looks like there is a reddish discoloration from the patient wearing tight jeans. There is no evidence of any shingles or any infection. Thank you Dr. Thurman. TYLER / VIOLETN: [id number] /
[2017-07-18 20:01] LABS: Glucose,Whole Blood 124 mg/dL (75-99)
[2017-07-18] MEDS: GABAPENTIN 100 MG CAP PO SCH ×2 (21:11→21:51)
[2017-07-18] MEDS: ATORVASTATIN 40 MG TAB PO SCH (21:12)
[2017-07-19 03:50] LABS: Glucose,Whole Blood 117 mg/dL (75-99)
[2017-07-19] MEDS: ACETAMINOPHEN TAB 325 MG TAB PO PRN ×2 (04:02→23:53)
[2017-07-19 07:00] LABS: Glucose,Whole Blood 102 mg/dL (75-99)
[2017-07-19] MEDS: GABAPENTIN 100 MG CAP PO SCH ×3 (09:26→20:28)
[2017-07-19] MEDS: ARIPiprazole 10 MG TAB PO SCH (09:26)
[2017-07-19] MEDS: metFORMIN 500 MG TAB PO SCH ×2 (09:26→17:55)
[2017-07-19] MEDS: PANTOPRAZOLE 40 MG TABLET PO SCH (09:26)
[2017-07-19 10:25] LABS: Lyme IgG/IgM 0.1 Index
[2017-07-19 12:55] LABS: Glucose,Whole Blood 96 mg/dL (75-99)
--- NOTE | 2017-07-19 14:21 | P.PN ---
Progress Note - Text Progress Note Date: 07/19/17 Interval History: Patient is a 46-year-old male who was seen in his room, patient states that he will not take Abilify because it causes him to have compulsive behavior. I discussed with the patient a trial of in [place] or Prolixin both of which are available in a long-acting injectable form. Patient stated he wanted to do it "naturally". Patient again would not discuss any symptoms stating that he's feeling fine. Mental Status: Appearance/Attitude: Patient is lying in his room, made no eye contact and was superficially cooperative. Behavior: Patient does not display any psychomotor agitation or retardation. Speech/Language: Patient responds to questions with brief answers, or no answer at all, he is coherent Thought Process: Patient responds in brief sentences Thought Content: Patient denies Auditory and visual hallucinations and denies any paranoid or delusional ideation. Patient has been noted on the unit to be making bizarre statements to staff. Suicidal/Homicidal Ideation: Patient denies any suicidal or homicidal ideation at this time Sensorium/Cognition: Patient is alert and oriented to person, place, and time and formal cognitive testing was not performed due to his lack of cooperation with the interview Mood/Affect: Patient's mood is guarded and his affect is flat Insight/Judgment: Patient's insight and judgment are impaired Assessment: Patient has been noted to be making bizarre statements on the unit however when I speak with him he denies any symptomatology at all. Earlier today I spoke with Dr. Ornelas his outpatient psychiatrist who reported that the patient has not been seen since the end of January and he is unclear about when the last injection of Abilify was done but it is been quite some time ago. He did not report that the patient was having any side effects such as compulsive smoking and drinking as the patient reported to me. Patient again today stated that he did not want to take Abilify secondary to the compulsive behavior that it causes. Patient had his meeting with his disability attorney today and will have a hearing on July 26 Plan: Patient again was approached regarding medication and he continues to refuse to take Abilify secondary to its causing compulsive behavior. I discussed with the patient a trial of Prolixin or in [place] both of which are available on a long-acting format the patient made no comment in response to this discussion. Patient's response was that he wanted to do it "naturally". We'll continue to discuss medication with the patient as we await his hearing on July 26.
[2017-07-19 17:35] LABS: Glucose,Whole Blood 94 mg/dL (75-99)
[2017-07-19 20:21] LABS: Glucose,Whole Blood 157 mg/dL (75-99)
[2017-07-19] MEDS: ATORVASTATIN 40 MG TAB PO SCH (20:28)
[2017-07-19] MEDS: LORazepam 1 MG TAB PO PRN (23:52)
[2017-07-20 06:24] LABS: Glucose,Whole Blood 117 mg/dL (75-99)
[2017-07-20] MEDS: metFORMIN 500 MG TAB PO SCH ×2 (08:56→17:52)
[2017-07-20] MEDS: PANTOPRAZOLE 40 MG TABLET PO SCH (08:56)
[2017-07-20] MEDS: ARIPiprazole 10 MG TAB PO SCH (08:56)
[2017-07-20] MEDS: GABAPENTIN 100 MG CAP PO SCH ×3 (08:56→21:08)
[2017-07-20 12:48] LABS: Glucose,Whole Blood 117 mg/dL (75-99)
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
[2017-07-20 17:54] LABS: Glucose,Whole Blood 106 mg/dL (75-99)
[2017-07-20 20:19] LABS: Glucose,Whole Blood 144 mg/dL (75-99)
[2017-07-20] MEDS: ATORVASTATIN 40 MG TAB PO SCH (21:08)
[2017-07-21 06:45] LABS: Glucose,Whole Blood 111 mg/dL (75-99)
[2017-07-21] MEDS: ARIPiprazole 10 MG TAB PO SCH (09:46)
[2017-07-21] MEDS: GABAPENTIN 100 MG CAP PO SCH ×3 (09:46→21:20)
[2017-07-21] MEDS: metFORMIN 500 MG TAB PO SCH ×2 (09:47→18:10)
[2017-07-21] MEDS: PANTOPRAZOLE 40 MG TABLET PO SCH (09:47)
[2017-07-21 12:49] LABS: Glucose,Whole Blood 116 mg/dL (75-99)
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
[2017-07-21] MEDS ORDERED: ARIPiprazole 400 MG VIAL (NO CHARGE) IM ONE (14:30)
[2017-07-21 18:10] LABS: Glucose,Whole Blood 105 mg/dL (75-99)
[2017-07-21 20:05] LABS: Glucose,Whole Blood 203 mg/dL (75-99)
[2017-07-21] MEDS: ATORVASTATIN 40 MG TAB PO SCH (21:20)
[2017-07-21] MEDS: LORazepam 1 MG TAB PO PRN (23:03)
[2017-07-22 06:27] LABS: Glucose,Whole Blood 134 mg/dL (75-99)
[2017-07-22] MEDS: PANTOPRAZOLE 40 MG TABLET PO SCH (09:03)
[2017-07-22] MEDS: GABAPENTIN 100 MG CAP PO SCH ×3 (09:03→22:01)
[2017-07-22] MEDS: metFORMIN 500 MG TAB PO SCH ×2 (09:03→17:27)
[2017-07-22] MEDS: ARIPiprazole 10 MG TAB PO SCH (09:03)
[2017-07-22] MEDS ORDERED: ARIPiprazole 10 MG TAB PO ONE (09:30)
[2017-07-22 12:38] LABS: Glucose,Whole Blood 123 mg/dL (75-99)
--- NOTE | 2017-07-22 13:26 | P.PN ---
Progress Note - Text Progress Note Date: 07/22/17 Interval History: Patient is a 44-year-old male who was seen today, after a discussion yesterday about receiving the long-acting Abilify the patient refused when it was offered. Patient states that he does not need medication and doesn't understand why he is in the hospital. Patient's response to how he was feeling was "can't see myself on the inside, my family see me on the outside ". Patient reports he is sleeping at night and denies that he is having any symptoms of auditory hallucinations paranoid ideation depressive symptoms suicidal ideation. Patient again denies that he call the mother complaining of feeling suicidal and denied that he was crying and depressed in the emergency room on the day of admission. Patient again states that he doesn't understand why he needs to take the medication and now declines in intramuscular long- acting form of Abilify stating he'll just take the oral medication. Mental Status: Appearance/Attitude: Patient is appropriately dressed, makes no eye contact during the interview and is superficially cooperative Behavior: Patient again is looking around the room during the interview, tapping his feet does not display any retardation or agitation Speech/Language: Patient's speech is not spontaneous, he only responds to questions and then with very brief sentences or yes no answers patient is coherent Thought Process: Patient's responses to questions are brief and either yes no or short sentences he does not elaborate Thought Content: Patient denies auditory hallucinations visual hallucinations and denies paranoid or delusional ideation. Patient states that he does not need to be in the hospital and does not require medication, when asked how he was feeling he stated "can't see myself on the inside, my family sees me on the outside". Patient reported he is sleeping well at night. Patient when offered the in long-acting injectable form of Abilify yesterday told the nurse "I don't need that shit". Suicidal/Homicidal Ideation: Patient denies any current suicidal or homicidal ideation and states that he never told his mother he was feeling suicidal Sensorium/Cognition: Patient is alert and oriented to person, place, time and his recent and remote memory are grossly intact Mood/Affect: Patient's mood is guarded and his affect is flat Insight/Judgment: Patient's insight and judgment are limited Assessment: Patient remains isolative on the unit not attending groups or activities and spending his time in his room and occasionally out on the unit and occasionally interacting with other peers. Patient refused long-acting injectable Abilify after he had agreed to it in our meeting yesterday and today tells me that he'll only take oral and doesn't even want to take that because he knows he does not need the medication. Patient continues to discuss that his friend told him to stop it because the medication was causing compulsive behavior. Patient denies any symptoms currently and states he was not suicidal on admission nor was he feeling depressed. Patient told me today that his mother reminded him to go to his appointments to get his injections. He spoke with nursing home social worker today and told her that the medications were causing him to have diabetes and he was going to open a holistic hospital. Plan: Will increase patient's Abilify to 20 mg a day, he was agreeable to take this but continues to refuse long-acting injectable Abilify. Patient and I again discussed court hearing on Saturday morning. Patient continues to require hospitalization to stabilize him. Patient's court hearing is this Saturday.
[2017-07-22 17:40] LABS: Glucose,Whole Blood 120 mg/dL (75-99)
[2017-07-22 20:18] LABS: Glucose,Whole Blood 140 mg/dL (75-99)
[2017-07-22] MEDS: ATORVASTATIN 40 MG TAB PO SCH (22:01)
[2017-07-23] MEDS: LORazepam 1 MG TAB PO PRN (00:24)
[2017-07-23 06:45] LABS: Glucose,Whole Blood 126 mg/dL (75-99)
[2017-07-23] MEDS: metFORMIN 500 MG TAB PO SCH ×2 (08:51→16:55)
[2017-07-23] MEDS: PANTOPRAZOLE 40 MG TABLET PO SCH (08:51)
[2017-07-23] MEDS: GABAPENTIN 100 MG CAP PO SCH (08:51)
[2017-07-23 12:55] LABS: Glucose,Whole Blood 123 mg/dL (75-99)
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
[2017-07-23] MEDS: MAG HYDROX/AL HYDROX/SIMETH 30 ML CUP PO PRN (16:56)
[2017-07-23 18:01] LABS: Glucose,Whole Blood 132 mg/dL (75-99)
[2017-07-23 20:10] LABS: Glucose,Whole Blood 128 mg/dL (75-99)
[2017-07-23] MEDS: ATORVASTATIN 40 MG TAB PO SCH (21:59)
[2017-07-24] MEDS: MAG HYDROX/AL HYDROX/SIMETH 30 ML CUP PO PRN (02:05)
[2017-07-24 06:07] LABS: Glucose,Whole Blood 112 mg/dL (75-99)
[2017-07-24] MEDS: PANTOPRAZOLE 40 MG TABLET PO SCH (09:15)
[2017-07-24] MEDS: metFORMIN 500 MG TAB PO SCH ×2 (09:15→17:46)
[2017-07-24 12:52] LABS: Glucose,Whole Blood 140 mg/dL (75-99)
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
[2017-07-24 17:31] LABS: Glucose,Whole Blood 98 mg/dL (75-99)
[2017-07-24 20:16] LABS: Glucose,Whole Blood 174 mg/dL (75-99)
[2017-07-24] MEDS: ATORVASTATIN 40 MG TAB PO SCH (20:46)
[2017-07-25] MEDS: LORazepam 1 MG TAB PO PRN (00:32)
[2017-07-25 06:29] LABS: Glucose,Whole Blood 110 mg/dL (75-99)
[2017-07-25] MEDS: PANTOPRAZOLE 40 MG TABLET PO SCH (09:57)
[2017-07-25] MEDS: metFORMIN 500 MG TAB PO SCH ×2 (09:57→17:19)
[2017-07-25 13:12] LABS: Glucose,Whole Blood 111 mg/dL (75-99)
--- NOTE | 2017-07-25 13:51 | P.PN ---
Progress Note - Text Progress Note Date: 07/25/17 Interval History: Patient is a 46-year-old male who was seen today, when I asked the patient why he had been jerking on the exit door last evening and kicking it he stated that he was banging on the door for something to do because he couldn't sleep. When I asked the patient why he hadn't spoken with staff before doing this he told me he didn't know. He then stated that he didn' t get much exercise yesterday. Patient stated it was something to do while not sleeping and he was laughing while he reported this. When I asked patient again about why he was drinking holy water he stated that he didn't know why he drank it, patient stated yesterday that he had gone to a [employer] to obtain holy water because he was druze and that someone had placed it in a bottle labeled flammable liquid, he states he noticed this after he drank it and went to the emergency room to have his stomach pumped. Patient can still not explain to me why anyone placed holy water and a flammable liquid container. Patient again denies any symptoms when asked. He states that he doesn't know why he is in the hospital or why he needs to be on psychotropic medication for anxiety. Patient admits to numerous breakdowns in the past but cannot tell me what any of his symptoms were because he states he couldn't see himself from the outside at that time. Mental Status: Appearance/Attitude: Patient is appropriately dressed, makes only occasional eye contact and is superficially cooperative Behavior: Patient does not exhibit any psychomotor agitation or retardation, he looks around the room during the interview and only occasionally makes eye contact, patient his feet and hands during the interview Speech/Language: Patient's speech is spontaneous and of normal volume and rhythm and he is coherent Thought Process: Patient's responses to most questions are brief with little elaboration, no evidence of circumstantial or tangential thought and no loose associations or flight of ideas Thought Content: Patient denies auditory or visual hallucinations and no paranoid or delusional ideation is elicited. When asked patient denies any symptoms states he can't recall any prior symptoms that he is had in is unable to explain his behavior of banging on the door last evening other than to say he didn't get enough exercise and needed something to do last night. Patient also can't explain why he was drinking holy water. Suicidal/Homicidal Ideation: Patient denies any current suicidal or homicidal ideation. Sensorium/Cognition: Patient is alert and oriented to person, place, and time and his recent and remote memory are grossly intact Mood/Affect: Patient's mood is guarded, at times his affect is flat but he was smiling when discussing his banging on the exit door last evening Insight/Judgment: Patient's insight and judgment are impaired Assessment: Patient continues to deny any symptoms stating that he doesn't know what his symptoms during his past "nervous breakdowns" were as he was not able to see himself. Patient is unable to explain why he was drinking holy water, Haldol holy water got into a flammable liquid container and is also unable to explain why he was banging on the exit door last night other than to say that he is having a hard time sleeping and it was something to do. Patient remains vague in his responses, stating that he doesn't need psychotropic medication for anxiety, but does admit to having been admitted in the past for "nervous breakdowns". Patient has been taking his oral Abilify but continues to refuse long-acting injectable Abilify. Patient has been coming to some groups for periods of time, little interaction and there is little interaction with other peers on the unit. Plan: Patient will continue on Abilify 20 mg in the morning, patient's hearing is tomorrow and will await the result of the hearing to determine patient's further treatment.
[2017-07-25 17:20] LABS: Glucose,Whole Blood 144 mg/dL (75-99)
[2017-07-25] MEDS: ATORVASTATIN 40 MG TAB PO SCH (20:18)
[2017-07-25 20:41] LABS: Glucose,Whole Blood 158 mg/dL (75-99)
[2017-07-26] MEDS: LORazepam 1 MG TAB PO PRN (00:25)
[2017-07-26 06:37] LABS: Glucose,Whole Blood 114 mg/dL (75-99)
[2017-07-26] MEDS: metFORMIN 500 MG TAB PO SCH ×2 (07:55→17:48)
[2017-07-26] MEDS: PANTOPRAZOLE 40 MG TABLET PO SCH (07:55)
[2017-07-26] MEDS: MAG HYDROX/AL HYDROX/SIMETH 30 ML CUP PO PRN (10:55)
[2017-07-26 12:13] LABS: Glucose,Whole Blood 138 mg/dL (75-99)
[2017-07-26] MEDS ORDERED: ARIPiprazole 400 MG VIAL (NO CHARGE) IM ONE (14:00)
--- NOTE | 2017-07-26 14:00 | P.PN ---
Progress Note - Text Progress Note Date: 07/26/17 Interval History: Patient is a 46-year-old male who was seen after his return from court this morning, he told me that he is on a court order and understood the meaning of this. Patient refused to leave his room to speak with me asking if he could be discharged in 5 days. Patient continues to deny having any symptoms, and did not want to continue the discussion further. Mental Status: Appearance/Attitude: Patient is properly dressed lying in bed makes no eye contact and was superficially cooperative Behavior: Patient did not sling psychomotor agitation or retardation. Speech/Language: Speech is spontaneous but limited to brief answers to questions , with little elaboration, he is coherent Thought Process: Patient is goal-directed in his responses which are brief, no evidence of loose association or flight of ideas Thought Content: Patient denies auditory or visual hallucinations and denies any delusional or paranoid ideation. Patient did not want to continue speaking with me today. Suicidal/Homicidal Ideation: patient denies any current suicidal or homicidal ideation Sensorium/Cognition: patient is alert and oriented to person, place, time and his recent and remote memory are grossly intact. Mood/Affect: patient's mood remains apathetic and his affect is flat Insight/Judgment: patient's insight and judgment are limited Assessment: patient went to court today and received a 60/90 day order, spoke with the patient today about now receiving Abilify long-acting injectable, he was reluctantly agreeable. Patient remains vague and evasive was questions denying all symptoms and stated that he had nothing further to say to me. Patient asked if he would be discharged in 5 days. Plan: patient will continue on Abilify 20 mg a day for 2 weeks after receiving Abilify Maintenna 300 mg IM which will be ordered today. Patient is not attending groups and activities and was encouraged to do so. Patient is not reporting any side effects from the medication. Patient continues to require hospitalization and consider discharge some time next week.
[2017-07-26 17:47] LABS: Glucose,Whole Blood 138 mg/dL (75-99)
[2017-07-26] MEDS: ATORVASTATIN 40 MG TAB PO SCH (20:14)
[2017-07-26 20:15] LABS: Glucose,Whole Blood 133 mg/dL (75-99)
[2017-07-27 05:56] LABS: Glucose,Whole Blood 107 mg/dL (75-99)
[2017-07-27] MEDS: metFORMIN 500 MG TAB PO SCH ×2 (08:34→17:32)
[2017-07-27] MEDS: PANTOPRAZOLE 40 MG TABLET PO SCH (08:34)
[2017-07-27 12:18] LABS: Glucose,Whole Blood 123 mg/dL (75-99)
--- NOTE | 2017-07-27 15:45 | P.PN ---
Progress Note - Text Interval history: The patient is found in his room. He states he feels tired and believes it's due to his medication. He has been isolating in his room this morning. Several times he states he does not need medication. Mental status exam: The patient is alert he seated calmly in the chair. He makes no eye contact. He reports his mood is tired. Affect is mildly irritable. He is reporting no symptoms. He denies having any suicidal or homicidal ideation intent or plan. He is reporting no auditory or visual hallucinations or any specific delusions. It is likely that he is underreporting symptoms to facilitate a discharge. Insight and judgment impaired. He demonstrates no verbal or physical aggressiveness he demonstrates no abnormal involuntary movements. Plan: The patient will continue on his current medications as prescribed. We' ll monitor him for safety he is encouraged to participate in the milieu.
[2017-07-27] MEDS: ACETAMINOPHEN TAB 325 MG TAB PO PRN (16:12)
[2017-07-27 17:33] LABS: Glucose,Whole Blood 103 mg/dL (75-99)
[2017-07-27 20:17] LABS: Glucose,Whole Blood 200 mg/dL (75-99)
[2017-07-27] MEDS: ATORVASTATIN 40 MG TAB PO SCH (20:28)
[2017-07-28 06:37] LABS: Glucose,Whole Blood 117 mg/dL (75-99)
[2017-07-28 06:50] VITALS: RESP 16
[2017-07-28] MEDS: metFORMIN 500 MG TAB PO SCH ×3 (08:36→18:12)
[2017-07-28] MEDS: PANTOPRAZOLE 40 MG TABLET PO SCH ×2 (08:36→10:33)
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
[2017-07-28 11:58] LABS: Glucose,Whole Blood 133 mg/dL (75-99)
[2017-07-28 14:16] VITALS: BMI 31.7
[2017-07-28 17:22] LABS: Glucose,Whole Blood 121 mg/dL (75-99)
[2017-07-28 20:06] LABS: Glucose,Whole Blood 127 mg/dL (75-99)
[2017-07-28] MEDS: ATORVASTATIN 40 MG TAB PO SCH (20:13)
[2017-07-29 06:29] LABS: Glucose,Whole Blood 114 mg/dL (75-99)
[2017-07-29] MEDS: metFORMIN 500 MG TAB PO SCH ×2 (09:03→17:37)
[2017-07-29] MEDS: PANTOPRAZOLE 40 MG TABLET PO SCH (09:03)
--- NOTE | 2017-07-29 12:30 | P.PN ---
Progress Note - Text Progress Note Date: 07/29/17 Interval History: Patient is a 46-year-old male who was seen today and he reports that he has been spending his day in his room and not attending many groups. He states that he hasn't been sleeping well at night. Patient continues to state that he doesn't know why he needs the medication but states that he did feel little better but doesn't know why. Patient again denied any symptoms that he was having or difficulties. Mental Status: Appearance/Attitude: Patient is appropriately dressed, makes no eye contact, is cooperative Behavior: Patient does not display any psychomotor agitation or retardation. Speech/Language: Patient only responds to questions and then with very brief answers, in a normal volume and rhythm and he is coherent Thought Process: Patient's responses are brief, not elaborative Thought Content: Patient denies auditory or visual hallucinations and no delusions or paranoid ideation were elicited. Patient continues to deny any symptoms or complaints and states that he feels a little better but can't tell me why. He continues to report that he does not know why he needs the medication. He states that he is eating well but spends most of the day in his room and states he is having difficulty sleeping at night but is been sleeping during the day. Suicidal/Homicidal Ideation: Patient denies any current suicidal or homicidal ideation. Sensorium/Cognition: Patient is alert and oriented to person, place, and time and his recent and remote memory are grossly intact. Mood/Affect: Patient's mood is apathetic and his affect is flat Insight/Judgment: Patient's insight and judgment are poor Assessment: Patient continues to deny any symptoms or the need for medication, he reports he is feeling better but can't tell me why. Patient has been spending the day in his room sleeping and has not been sleeping well at night. He reports his appetite is good. Patient does not exhibit or report any side effects from the medication. Plan: Patient will continue on Abilify 20 mg orally until August 09 to be 2 weeks after he received a long-acting injection. Patient and I discussed possible discharge on Saturday, patient will be living with his brother on discharge until his mother can return from [place]. Patient and I again reviewed what the court order means and his need to be compliant with medication and appointments after discharge.
[2017-07-29 13:06] LABS: Glucose,Whole Blood 107 mg/dL (75-99)
--- NOTE | 2017-07-29 15:27 | PN ---
PROGRESS NOTE DATE OF SERVICE: 07/29/2017 PRESENT COMPLAINT: Depression. INTERVAL HISTORY: This patient is in the psych unit, has been tolerating his diet. Has not be sleeping too well. Appears tired, less fidgety and restless since initially presented. Appears to be spending most of the time sleeping in his room. REVIEW OF SYSTEMS: Done for constitutional, cardiovascular, GI, pulmonary, psych: relevant findings as above. CURRENT MEDICATIONS: Reviewed that include Abilify. PHYSICAL EXAMINATION: Temperature 98.6, pulse 71, respirations 16, blood pressure 120/71, pulse ox 99% on room air. GENERAL APPEARANCE: Sitting up, tired appearing. EYES: Pupils equal, conjunctivae normal. HEENT: External nose normal, oral cavity normal. NECK: JVD not raised. Mass not palpable. RESPIRATORY: Effort normal. LUNGS: Fair entry. CARDIOVASCULAR: First and second sounds no edema. ABDOMEN: Soft, nontender. Liver and spleen not palpable. PSYCHIATRY: Awake, tired-appearing, appears a bit low, but answering questions appropriately. INVESTIGATIONS: Accu-Cheks are noted. ASSESSMENT: 1. Diabetes mellitus type 2 on oral hypoglycemic. 2. Obesity, body mass index 32.3. 3. Hyperlipidemia. 4. Essential hypertension. 5. Schizoaffective disorder, depressive type as per Psychiatry. PLAN: Continue current medication and treatment plan. Patient should follow up with his family doctor upon discharge. MMODL / IJN: [id number] /
[2017-07-29 17:37] LABS: Glucose,Whole Blood 121 mg/dL (75-99)
[2017-07-29] MEDS: ATORVASTATIN 40 MG TAB PO SCH (20:22)
[2017-07-29 20:24] LABS: Glucose,Whole Blood 163 mg/dL (75-99)
[2017-07-30 06:58] LABS: Glucose,Whole Blood 101 mg/dL (75-99)
[2017-07-30] MEDS: metFORMIN 500 MG TAB PO SCH ×2 (07:49→17:30)
[2017-07-30] MEDS: PANTOPRAZOLE 40 MG TABLET PO SCH (07:49)
--- NOTE | 2017-07-30 14:04 | P.PN ---
Progress Note - Text Progress Note Date: 07/30/17 Interval History: Patient is a 46-year-old male who was seen today, patient states that he is feeling okay reports no side effects of the medication. He states that his thinking and focus are better but cannot tell me and what way or how they were not good prior to this. Patient states that he feels the medications have been helpful, stating he feels better on it but again cannot elaborate further. Mental Status: Appearance/Attitude: Patient is appropriately dressed, makes only intermittent eye contact and is cooperative Behavior: Patient does not exhibit any psychomotor agitation or retardation. Speech/Language: Patient's speech is spontaneous, however his answers and responses are brief sentences, he speaks in a normal tone and volume and is coherent Thought Process: Patient is goal-directed however his responses are brief and he is unable to elaborate Thought Content: Patient denies auditory or visual hallucination and denies any paranoia or delusional ideation. Patient states that he is sleeping at night, continues to spend most of his time in bed during the day. Patient reports a good appetite and no complaints of side effects and the medication. Suicidal/Homicidal Ideation: Patient denies any current suicidal or homicidal ideation Sensorium/Cognition: patient is alert and oriented to person, place, and time and his recent and remote memory are grossly intact. Mood/Affect:patient's mood remains apathetic and his affect is flat Insight/Judgment: Patient's insight and judgment are slightly improved as he states today that he thinks the medication has been helpful Assessment: patient reports that he is feeling better on the medication and states his thinking and focus have improved but he is unable to elaborate on why they were a problem prior to his starting the medication. Patient again denies any symptoms and states that he is ready for discharge. Patient has been spending most of his time in his room and has not been attending groups or activities and has little interaction on the unit with other peers. Plan: patient continues on Abilify 20 mg orally until August 09 when he will completed 2 weeks after his injection of Abilify Maintenna on July 26, his next injection of Abilify will be due on August 16 at 300 mg. Patient will return home and one of his brothers will be staying with him until his parents returned from [place]. Patient will follow-up with Dr.Brozovitch the office as well as his primary care physician.
[2017-07-30 14:42] LABS: Glucose,Whole Blood 164 mg/dL (75-99)
[2017-07-30] MEDS: LORATADINE 10 MG TAB PO SCH ×2 (17:30→21:27)
[2017-07-30 17:42] LABS: Glucose,Whole Blood 104 mg/dL (75-99)
[2017-07-30 20:32] LABS: Glucose,Whole Blood 140 mg/dL (75-99)
[2017-07-30] MEDS: ATORVASTATIN 40 MG TAB PO SCH (21:27)
[2017-07-31 07:01] VITALS: BP 131/61; PULSE 65; TEMP 97.6
[2017-07-31 07:12] LABS: Glucose,Whole Blood 101 mg/dL (75-99)
[2017-07-31] MEDS: metFORMIN 500 MG TAB PO SCH (09:34)
[2017-07-31] MEDS: PANTOPRAZOLE 40 MG TABLET PO SCH (09:34)
[2017-07-31] MEDS: LORATADINE 10 MG TAB PO SCH (09:34)
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
[2017-07-31 13:34] LABS: Glucose,Whole Blood 97 mg/dL (75-99)
== END 2017-07-31 14:17 | disposition home or self-care (01) | DRG 885 ==
LOC: EC 20:28 → 3MHU 07-18 01:45
PROVIDERS: ADMIT Psychiatry & Neurology Psychiatry; ATTEND Psychiatry & Neurology Psychiatry
DX: F25.1 Schizoaffective disorder, depressive type (principal); E11.9 Type 2 diabetes mellitus without complications; E66.9 Obesity, unspecified; E78.5 Hyperlipidemia, unspecified; F06.4 Anxiety disorder due to known physiological condition; I10 Essential (primary) hypertension; M54.5 Low back pain; M62.838 Other muscle spasm; G47.9 Sleep disorder, unspecified; R21 Rash and other nonspecific skin eruption; F17.210 Nicotine dependence, cigarettes, uncomplicated; Z68.32 Body mass index [BMI] 32.0-32.9, adult; Z79.84 Long term (current) use of oral hypoglycemic drugs; Z79.899 Other long term (current) drug therapy; Z88.0 Allergy status to penicillin; Z91.14 Patient's other noncompliance with medication regimen; Z82.49 Family history of ischemic heart disease and other diseases of the circulatory system
CPT/HCPCS: 36415; 80048; 80061; 80306; 81003; 82075; 83036; 84443; 85025; 86618; 99284

== ENCOUNTER → 2018-11-13 | Outpatient (CLI) | payer MEDICARE, OTHER ==
--- NOTE | 2018-11-14 | US ---
EXAMINATION TYPE: US scrotum with doppler. TECHNIQUE: Grayscale and color Doppler Duplex imaging performed of the scrotum. DATE OF EXAM: 11/13/2018 COMPARISON: NONE CLINICAL HISTORY: 48-year-old male N50.9 TESTICULAR MASS. Palpable noted by patient inferior right sc rotal sac. FINDINGS: EXAM MEASUREMENTS: TESTICLES: Right Testicle: 3.9 x 2.8 x 2.4 cm Left Testicle: 4.3 x 2.9 x 2.1 cm EPIDIDYMIS HEAD: Right Epididymis: 0.7 x 0.6 x 0.8 cm Left Epididymis: 0.8 x 1.2 x 0.9 cm Doppler performed to assess for testicular vascularity; good bilateral color flow and waveforms are s een. There is no evidence of testicular torsion. Epididymal cysts: right epididymal head cyst = 0.3 x 0.3 x 0.3cm; left epididymal head cyst = 0.4 x 0 .4 x 0.6cm. Presence of hydroceles: no Presence of varicoceles: in right inferior epididymis as vein sizes abnormal greater than 2.5mm. IMPRESSION: 1. No testicular mass or evidence for testicular torsion. 2. Inferior right scrotal varicoceles. The presence of isolated varicoceles on the right can sometime s be seen with a downstream obstructive process such as retroperitoneal lymphadenopathy having mass e ffect on to the gonadal vein. Consider contrast enhanced CT of the abdomen and pelvis.
== END | disposition home or self-care (01) ==
LOC: RADUSWWP 15:31
PROVIDERS: ATTEND Family Medicine
DX: I86.1 Scrotal varices (principal)
CPT/HCPCS: 76870; 93975

== ENCOUNTER → 2018-11-28 | Outpatient (CLI) | payer MEDICARE, OTHER ==
[2018-11-28 13:00] LABS: African American GFR (CKD) >90 (>60 ml/min/1.73 sqM); Blood Urea Nitrogen 12 mg/dL (9-20)
--- NOTE | 2018-11-28 14:35 | CT ---
EXAMINATION TYPE: CT abdomen pelvis w con DATE OF EXAM: 11/28/2018 COMPARISON: CT abdomen and pelvis July 07, 2017 HISTORY: LUQ pain, Abnormal US CT DLP: 1613 mGycm, Automated Exposure Control for Dose Reduction was Utilized. CONTRAST: CT scan of the abdomen and pelvis is performed with oral and with IV Contrast, patient injected with 100 mL of Isovue 300. FINDINGS: LUNG BASES: No significant abnormality is appreciated. LIVER/GB: Dependent small stones are seen in contracted gallbladder. Liver is low dense consistent wi th diffuse fatty infiltration. PANCREAS: No significant abnormality is seen. SPLEEN: No significant abnormality is seen. ADRENALS: No significant abnormality is seen. KIDNEYS: Symmetric cortical medullary uptake and excretion without concerning renal mass or hydroneph rosis bilaterally. BOWEL: Oral contrast reaches level of sigmoid colon. No suspicious small or large bowel dilatation. PROSTATE/SEMINAL VESICLES: No gross abnormality seen. LYMPH NODES: No greater than 1cm abdominal or pelvic lymph nodes are appreciated with particular att ention to the retroperitoneum. OSSEOUS STRUCTURES: Bilateral pars defect L5 level without significant spondylolisthesis. Lower lumba r spine facet arthropathy. OTHER: Some streak artifact from metallic coins in the patient's left gluteal pocket incidentally not ed. IMPRESSION: No suspicious obstructing mass or adenopathy.
== END | disposition home or self-care (01) ==
LOC: RADCTMAIN 12:24
PROVIDERS: ATTEND Family Medicine
DX: I86.1 Scrotal varices (principal)
CPT/HCPCS: 82565; 84520; 74177; 36415; Q9967

== ENCOUNTER 2018-12-08 21:08 | Emergency (ER) | payer MEDICARE, OTHER ==
[2018-12-08 21:13] VITALS: BP 130/70; PULSE 59; RESP 20; TEMP 98.7
[2018-12-08 22:22] LABS: Amphetamine Screen,Urine Not Detected (NotDetected); Barbiturate Screen,Urine Not Detected (NotDetected); Benzodiazepines Screen,Urine Not Detected (NotDetected); Cocaine Screen,Urine Not Detected (NotDetected); Methadone Screen, Urine Not Detected (NotDetected); Opiate Screen,Urine Not Detected (NotDetected); Oxycodone Screen, Urine Not Detected (NotDetected); Phencyclidine Screen,Urine Not Detected (NotDetected); Tricyclic Antidepressant,Urine Not Detected (NotDetected); Urn Cannabinoid Scrn Not Detected (NotDetected)
--- NOTE | 2018-12-08 22:49 | ED ---
Psych HPI - General Chief Complaint: Psychiatric Symptoms Stated Complaint: Mental Health Source: patient Mode of arrival: ambulatory - History of Present Illness Initial Comments: Gilbert is a 48-year-old gentleman who presents the emergency department today for psychiatric evaluation. Patient states that he is just feeling overly emotional. She is very vague about what is bringing him in today. 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 He then reports he came home and he became very upset because he hasn't heard from his teenage daughter in nearly a month and he got very emotional. Patient reports that his father then brought him to the emergency department because he is worried about him. Patient denies any suicidal or homicidal ideations. Patient denies any psychiatric history but states I have a history of being human and I have emotions. When asked directly why he is in the emergency department patient states that he needs help with his emotions. - Related Data Home Medications Medication Instructions Recorded Confirmed Ascorbic Acid [Vitamin C] 500 mg PO DAILY 07/18/16 12/08/18 Atorvastatin [Lipitor] 80 mg PO HS 12/08/18 12/08/18 Cholecalciferol [Vitamin D3 (25 1,000 unit PO DAILY 12/08/18 12/08/18 Mcg = 1000 Iu)] Garlic 1 tab PO DAILY 12/08/18 12/08/18 Paliperidone [Paliperidone ER] 3 mg PO DAILY 12/08/18 12/08/18 Previous Rx's Medication Instructions Recorded metFORMIN HCL [Glucophage] 500 mg PO BID 30 Days tab 12/28/15 Allergies Allergy/AdvReac Type Severity Reaction Status Date / Time Penicillins Allergy Unknown Verified 12/08/18 21:33 Childhood Review of Systems ROS Statement: Those systems with pertinent positive or pertinent negative responses have been documented in the HPI. ROS Other: All systems not noted in ROS Statement are negative. Past Medical History Past Medical History: Diabetes Mellitus, Hyperlipidemia, Hypertension History of Any Multi-Drug Resistant Organisms: None Reported Past Surgical History: No Surgical Hx Reported Past Anesthesia/Blood Transfusion Reactions: No Reported Reaction Past Psychological History: Anxiety, Schizoaffective Disorder Smoking Status: Former smoker Past Alcohol Use History: None Reported Past Drug Use History: None Reported - Past Family History Mother History Unknown: Yes Additional Family Medical History / Comment(s): Mother is 75 years of age and he is unsure of her past medical history. Father History Unknown: Yes Additional Family Medical History / Comment(s): Father is alive at age 75 with history of coronary artery disease. Daughter(s) Family Medical History: No Reported History Brother(s) Family Medical History: No Reported History Additional Family Medical History / Comment(s): He has 2 brothers with no major medical problems. General Exam - General Exam Comments Initial Comments: Physical Exam GENERAL: Patient is well-developed and well-nourished. Patient is nontoxic and well- hydrated and is in no distress. HENT: Normocephalic, Atraumatic. EYES: PERRL, EOMI PULMONARY: Unlabored respirations. No audible rales rhonchi or wheezing was noted. CARDIOVASCULAR: There is a regular rate and rhythm without any murmurs gallops or rubs. ABDOMEN: Soft and nontender with normal bowel sounds. SKIN: Skin is clear with no lesions or rashes and otherwise unremarkable. : Deferred NEUROLOGIC: Patient is alert and oriented x3. Moving all extremities spontaneously MUSCULOSKELETAL: Normal extremities with adequate strength and full range of motion. No lower extremity swelling or edema. No calf tenderness. PSYCHIATRIC: Odd affect, upset, tearful, denies SI/HI Limitations: no limitations Course Vital Signs 12/08/18 21:10 Temperature 98.7 F Pulse Rate 59 L Respiratory 20 Rate Blood Pressure 130/70 O2 Sat by Pulse 99 Oximetry Medical Decision Making - Medical Decision Making Patient was seen and evaluated, history is obtained from the patient Patient's breath alcohol is negative he does not appear to be intoxicated he is medically cleared for evaluation by emergency psychiatric services Patient care signed out to Dr Westfall who will follow up on EPS recommendations. - Lab Data Lab Results 12/08/18 Range/Units 22:00 Urine Opiates Screen Not Detected (NotDetected) Ur Oxycodone Screen Not Detected (NotDetected) Urine Methadone Screen Not Detected (NotDetected) Ur Propoxyphene Screen Not Detected (NotDetected) Ur Barbiturates Screen Not Detected (NotDetected) U Tricyclic Antidepress Not Detected (NotDetected) Ur Phencyclidine Scrn Not Detected (NotDetected) Ur Amphetamines Screen Not Detected (NotDetected) U Methamphetamines Scrn Not Detected (NotDetected) U Benzodiazepines Scrn Not Detected (NotDetected) Urine Cocaine Screen Not Detected (NotDetected) U Marijuana (THC) Screen Not Detected (NotDetected) Disposition Clinical Impression: Depression Disposition: HOME SELF-CARE Condition: Stable Instructions (If sedation given, give patient instructions): Depression (DC) Is patient prescribed a controlled substance at d/c from ED?: No Referrals: Pam Goode MD [Primary Care Provider] - 1-2 days
== END 2018-12-09 00:12 | disposition home or self-care (01) ==
LOC: EC 21:08
DX: F32.9 Major depressive disorder, single episode, unspecified (principal); E78.5 Hyperlipidemia, unspecified; F25.9 Schizoaffective disorder, unspecified; Z79.899 Other long term (current) drug therapy; Z88.0 Allergy status to penicillin
CPT/HCPCS: 80306; 82075; 99284

== ENCOUNTER 2018-12-10 03:04 | Inpatient (IN) | payer MEDICARE, MEDICAID ==
--- NOTE | 2018-12-10 03:06 | ED ---
Psych HPI - General Stated Complaint: group director experience order Time Seen by Provider: 12/10/18 03:06 - History of Present Illness Initial Comments: is a 48-year-old gentleman with history of gastric illness who is brought to the emergency room by police with a pickup order. Patient was seen and evaluated yesterday in the emergency department. At that time he was complaining of being very emotional over certain things in his life including missing his daughter. Patient was evaluated by EPS and it was determined that he was non-acute threat to himself or others, is not suicidal homicidal or delusional and decision made to discharge her home for outpatient follow-up. His mother reports that since being discharged patient has continued to have erratic behavior. She reports that he had sent text messages indicating that he wanted to end his life. She is concerned that he is having a psychotic break and thus a pickup order was requested and approved. PD was contacted in the early afternoon however the patient had left his home and PD was unable to find it. This evening the patient returned home and his mother again contacted PD who picked up at the home and brought to the ER for evaluation. The patient reports that he is just feeling overwhelmed, he states that he is a very emotional person and this is hard for his parents. Patient states that he is concerned about his parents aging, he still misses his daughter. Patient is very vague when it comes to questions about his compliance with medical treatment. Patient denies suicidal or homicidal ideation. - Related Data Home Medications Medication Instructions Recorded Confirmed Ascorbic Acid [Vitamin C] 500 mg PO DAILY 07/18/16 12/08/18 Atorvastatin [Lipitor] 80 mg PO HS 12/08/18 12/08/18 Cholecalciferol [Vitamin D3 (25 1,000 unit PO DAILY 12/08/18 12/08/18 Mcg = 1000 Iu)] Garlic 1 tab PO DAILY 12/08/18 12/08/18 Paliperidone [Paliperidone ER] 3 mg PO DAILY 12/08/18 12/08/18 Previous Rx's Medication Instructions Recorded metFORMIN HCL [Glucophage] 500 mg PO BID 30 Days tab 12/28/15 Allergies Allergy/AdvReac Type Severity Reaction Status Date / Time Penicillins Allergy Unknown Verified 12/08/18 21:33 Childhood Review of Systems ROS Statement: Those systems with pertinent positive or pertinent negative responses have been documented in the HPI. ROS Other: All systems not noted in ROS Statement are negative. Past Medical History Past Medical History: Diabetes Mellitus, Hyperlipidemia, Hypertension History of Any Multi-Drug Resistant Organisms: None Reported Past Surgical History: No Surgical Hx Reported Past Anesthesia/Blood Transfusion Reactions: No Reported Reaction Past Psychological History: Anxiety, Schizoaffective Disorder Smoking Status: Former smoker Past Alcohol Use History: None Reported Past Drug Use History: None Reported - Past Family History Mother History Unknown: Yes Additional Family Medical History / Comment(s): Mother is 75 years of age and he is unsure of her past medical history. Father History Unknown: Yes Additional Family Medical History / Comment(s): Father is alive at age 75 with h istory of coronary artery disease. Daughter(s) Family Medical History: No Reported History Brother(s) Family Medical History: No Reported History Additional Family Medical History / Comment(s): He has 2 brothers with no major medical problems. General Exam - General Exam Comments Initial Comments: Physical Exam GENERAL: Patient is well-developed and well-nourished. Patient is nontoxic and well- hydrated and is in no distress. HENT: Normocephalic, Atraumatic. EYES: PERRL, EOMI PULMONARY: Unlabored respirations. No audible rales rhonchi or wheezing was noted. CARDIOVASCULAR: There is a regular rate and rhythm without any murmurs gallops or rubs. ABDOMEN: Soft and nontender with normal bowel sounds. SKIN: Skin is clear with no lesions or rashes and otherwise unremarkable. : Deferred NEUROLOGIC: Patient is alert and oriented x3. Moving all extremities spontaneously MUSCULOSKELETAL: Normal extremities with adequate strength and full range of motion. No lower extremity swelling or edema. No calf tenderness. PSYCHIATRIC: Odd affect Anxious Course Vital Signs 12/10/18 03:10 Temperature 98.2 F Pulse Rate 79 Respiratory 18 Rate Blood Pressure 149/78 O2 Sat by Pulse 99 Oximetry Medical Decision Making - Medical Decision Making Patient was seen and evaluated history is obtained from the patient and review of roller picker ordered Patient's breath alcohol is negative patient's medically cleared for evaluation by EPS She was seen and evaluated by EPS recommend inpatient evaluation. Patient will not sign in voluntarily, cert was completed. - Lab Data Result diagrams: 12/10/18 03:35 Lab Results 07/12/10/18 12/10/18 Range/Units 03:35 03:35 04:28 WBC 9.8 (3.8-10.6) k/uL RBC 4.70 (4.30-5.90) m/uL Hgb 14.3 (13.0-17.5) gm/dL Hct 41.8 (39.0-53.0) % MCV 88.9 (80.0-100.0) fL MCH 30.5 (25.0-35.0) pg MCHC 34.3 (31.0-37.0) g/dL RDW 12.5 (11.5-15.5) % Plt Count 332 (150-450) k/uL Neutrophils % 53 % Lymphocytes % 38 % Monocytes % 5 % Eosinophils % 1 % Basophils % 1 % Neutrophils # 5.1 (1.3-7.7) k/uL Lymphocytes # 3.7 (1.0-4.8) k/uL Monocytes # 0.5 (0-1.0) k/uL Eosinophils # 0.1 (0-0.7) k/uL Basophils # 0.1 (0-0.2) k/uL POC Glucose (mg/dL) 120 H (75-99) mg/dL POC Glu Placer Miner ID Daya Dexter Serum Alcohol <10 mg/dL Disposition Clinical Impression: Suicidal ideation Disposition: TRANSFER TO PSYCH HOSP/UNIT Condition: Serious
[2018-12-10 03:50] LABS: Basophils # (A) 0.1 k/uL (0-0.2); Basophils % (A) 1 %; Eosinophils # (A) 0.1 k/uL (0-0.7); Eosinophils % (A) 1 %; HCT 41.8 % (39.0-53.0); HGB 14.3 gm/dL (13.0-17.5); Lymphocytes # (A) 3.7 k/uL (1.0-4.8); Lymphocytes % (A) 38 %; MCH 30.5 pg (25.0-35.0); MCHC 34.3 g/dL (31.0-37.0); MCV 88.9 fL (80.0-100.0); Mean Platelet Volume 6.9; Monocytes # (A) 0.5 k/uL (0-1.0); Monocytes % (A) 5 %; Neutrophils # (A) 5.1 k/uL (1.3-7.7); Neutrophils % (A) 53 %; Platelet Count 332 k/uL (150-450); RDW 12.5 % (11.5-15.5); WBC 9.8 k/uL (3.8-10.6)
[2018-12-10 04:30] LABS: Glucose,Whole Blood 120 mg/dL (75-99)
[2018-12-10] MEDS ORDERED: MAG HYDROX/AL HYDROX/SIMETH 30 ML CUP PO PRN (06:19)
[2018-12-10] MEDS ORDERED: MAGNESIUM HYDROXIDE 2,400 MG/10 ML CUP PO PRN (06:19)
[2018-12-10] MEDS ORDERED: ACETAMINOPHEN TAB 325 MG TAB PO PRN (06:19)
[2018-12-10] MEDS ORDERED: ZIPRASIDONE 20 MG VIAL IM PRN (06:19)
[2018-12-10] MEDS ORDERED: LORazepam 1 MG TAB PO PRN (06:19)
[2018-12-10 08:10] LABS: Glucose,Whole Blood 127 mg/dL (75-99)
--- NOTE | 2018-12-10 10:25 | P.HP ---
Psychiatric H&P - . History & Physical: Allergies Allergy/AdvReac Type Severity Reaction Status Date / Time Penicillins Allergy Unknown Verified 12/10/18 06:29 Childhood Vital Signs Temp 97.6 F 12/10/18 06:45 Pulse 65 12/10/18 06:45 Resp 14 12/10/18 06:45 BP 122/61 12/10/18 06:45 Pulse Ox 91 L 12/10/18 06:45 Intake & Output 12/09/18 12/10/18 12/10/18 18:59 06:59 18:59 Weight 95.254 kg Laboratory Last Values WBC 9.8 k/uL (3.8-10.6) 12/10/18 03:35 RBC 4.70 m/uL (4.30-5.90) 12/10/18 03:35 Hgb 14.3 gm/dL (13.0-17.5) 12/10/18 03:35 Hct 41.8 % (39.0-53.0) 12/10/18 03:35 MCV 88.9 fL (80.0-100.0) 12/10/18 03:35 MCH 30.5 pg (25.0-35.0) 12/10/18 03:35 MCHC 34.3 g/dL (31.0-37.0) 12/10/18 03:35 RDW 12.5 % (11.5-15.5) 12/10/18 03:35 Plt Count 332 k/uL (150-450) 12/10/18 03:35 Neutrophils % 53 % 12/10/18 03:35 Lymphocytes % 38 % 12/10/18 03:35 Monocytes % 5 % 12/10/18 03:35 Eosinophils % 1 % 12/10/18 03:35 Basophils % 1 % 12/10/18 03:35 Neutrophils # 5.1 k/uL (1.3-7.7) 12/10/18 03:35 Lymphocytes # 3.7 k/uL (1.0-4.8) 12/10/18 03:35 Monocytes # 0.5 k/uL (0-1.0) 12/10/18 03:35 Eosinophils # 0.1 k/uL (0-0.7) 12/10/18 03:35 Basophils # 0.1 k/uL (0-0.2) 12/10/18 03:35 POC Glucose (mg/dL) 127 mg/dL (75-99) H 12/10/18 08:09 POC Glu Clerical Order Filler ID Geovanna iMlton 12/10/18 08:09 Serum Alcohol <10 mg/dL 12/10/18 03:35 12/10/18 10:15 IDENTIFYING DATA: This patient is a 48-year-old male who was admitted to the mental health unit on a petition completed by his mother indicating he had made suicidal statements and was experiencing acute symptoms of psychosis. HPI: The petition completed by his mother states "yesterday Gilbert sent text messages that indicated he wanted to end his life. This is going to end and tragedy if someone doesn't help me or José I'm very exhausted of this world and I'm ready for the next 1. I keep asking God to kill me quick and easy there is no other way is inevitable. Gilbert went on to say in his text messages that there is a spiritual warfare going on in this world and [place] is winning. The days of the [employer] are over and that the [place] is [place]. Today Gilbert is still symptomatic and not taking his mental health meds. He is very agitated and took off in his car this morning. Gilbert has been diagnosed with schizoaffective disorder he hasn't consistently took his meds in over a year. I often find his meds in his pain pockets the floor or in the garbage." This morning the patient's found in his room sleeping in bed. He is irritable he refuses to follow me to an interview room. He indicates he feels tired. He did partially cooperate with some questions in his room. He states that everything written on the petition is faults. He states his mother is demented. He indicates he is prescribed invega and he takes it daily. He reports no auditory or visual hallucinations he reports no specific delusions. He denies having any psychiatric symptoms when going through a review of systems. PAST PSYCHIATRIC HISTORY: The patient's has had several psychiatric admissions. This would be his fourth since December 2015. He was admitted in December 2015, July 2016, July 2017. Most recently he has been treated with invega. He was treated with Malgorzata rodgers prior to that. He had been on Haldol Decanoate in the past as well as Wellbutrin. No history of suicide attempts that he reports. He works with Dr. Ornelas for outpatient psychiatric care. PMH: Diabetes, hyperlipidemia ALLERGIES: Penicillin MEDICATIONS: Refer to MAR CHEMICAL DEPENDENCY HISTORY: Reports no use of substances FAMILY PSYCHIATRIC HISTORY: None reported FAMILY CHEMICAL DEPENDENCY HISTORY: None reported SOCIAL HISTORY: The patient is 48 years old he is he resides with his parents. 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 He does have a daughter age unknown. There is no prior legal history reported no prior abuse history reported MENTAL STATUS EXAM: The patient's is a male appearing his stated age. He is balding, he has the rest of his hair shaved very short. He is dressed in hospital gowns. He makes no eye contact. He is irritable during our interaction and only partially cooperative. Without much consideration, he endorses no psychiatric symptoms when going through a review. He does change position while lying in bed several times during our brief interaction. He did not tolerate any cognitive questioning. He is reporting no thoughts of harming himself or others but again he is an unreliable historian currently. STRENGTHS/WEAKNESSES: Strengths: Support from family housing weaknesses likely noncompliance with medication with resultant symptoms of psychosis INTELLECTUAL FUNCTIONING: Average IMPRESSIONS: [] 1. Schizoaffective disorder 2. Diabetes hyperlipidemia PLAN: The patient has been admitted to the mental health unit involuntarily. He was only partially cooperative for the interview and was irritable. I did complete a second clinical certificate. He refutes any of the information on the petition. He does not wish to remain here voluntarily. The invega 6 mg daily will be offered. He will be seen by internal medicine for routine history and physical exam. Social work will meet with him to complete a psychosocial assessment and begin discharge planning. We will monitor him for safety. He is encouraged to participate in the milieu. Vital signs reviewed.
[2018-12-10] MEDS: NICOTINE 7MG/24HR PATCH TRANSDERM SCH ×2 (10:26→10:30)
[2018-12-10] MEDS: PALIPERIDONE 3 MG TAB.ER.24 PO SCH (10:26)
[2018-12-10] MEDS: metFORMIN 500 MG TAB PO SCH ×2 (10:26→21:01)
--- NOTE | 2018-12-10 13:14 | P.CONS ---
History of Present Illness - Reason for Consult Consult date: 12/10/18 - History of Present Illness atient admitted to the hospital for being suicidal and we'll consulted for medical management the patient doesn't have any complaints of chest pain or shortness of breath at this time Review of systems and systems has been reviewed all negative and positive findings as per history of present illness Past medical history diabetes Surgical history none known at this time Family history not known Social history smokes Alert and does not appear to be in distress Constitutional: No acute distress, Eyes: Anicteric sclerae, moist conjunctiva, no lid-lag PERRLA ENMT: NC/AT Oropharynx clear, no erythema, exudates Neck: Supple, FROM, no masses, or JVD No carotid bruits No thyromegaly Lungs: Clear to auscultation Clear to percussion Normal respiratory effort, no accessory muscle use Cardiovascular: Heart regular in rate and rhythm, No murmurs, gallops, or rubs No peripheral edema Abdominal: Soft Nontender, no guarding, rebound or rigidity Skin: Normal temperature, tone, texture, turgor No induration No subcutaneous nodules No rash, lesions No ulcers Extremities: No digital cyanosis No clubbing Pedal pulses intact and symmetrical Radial pulses intact and symmetrical Normal gait and station No calf tenderness Psychiatric:Alert and oriented to person, place and time Appropriate affect Intact judgement Neuro: No obvious focal weakness Diabetes controlled okay to resume metformin Suicidal management as per psychiatry No acute medical events at this time Call for any questions Overall stable Continue overall management as per primary team Past Medical History Past Medical History: Diabetes Mellitus, Hyperlipidemia, Hypertension History of Any Multi-Drug Resistant Organisms: None Reported Past Surgical History: No Surgical Hx Reported Past Anesthesia/Blood Transfusion Reactions: No Reported Reaction Smoking Status: Current every day smoker - Past Family History Mother History Unknown: Yes Additional Family Medical History / Comment(s): Mother is 75 years of age and he is unsure of her past medical history. Father History Unknown: Yes Additional Family Medical History / Comment(s): Father is alive at age 75 with history of coronary artery disease. Daughter(s) Family Medical History: No Reported History Brother(s) Family Medical History: No Reported History Additional Family Medical History / Comment(s): He has 2 brothers with no major medical problems. Medications and Allergies Home Medications Medication Instructions Recorded Confirmed Type metFORMIN HCL [Glucophage] 500 mg PO BID 30 Days tab 12/28/15 12/10/18 Rx Ascorbic Acid [Vitamin C] 500 mg PO DAILY 07/18/16 12/10/18 History Atorvastatin [Lipitor] 80 mg PO HS 12/08/18 12/10/18 History Cholecalciferol [Vitamin D3 (25 1,000 unit PO DAILY 12/08/18 12/10/18 History Mcg = 1000 Iu)] Garlic 1 tab PO DAILY 12/08/18 12/10/18 History Clindamycin HCl 300 mg PO QID 12/10/18 12/10/18 History Paliperidone [Invega] 6 mg PO DAILY 12/10/18 12/10/18 History buPROPion HCL [Wellbutrin XL] 150 mg PO DAILY 12/10/18 12/10/18 History Allergies Allergy/AdvReac Type Severity Reaction Status Date / Time Penicillins Allergy Unknown Verified 12/10/18 06:29 Childhood Physical Exam Vitals: Vital Signs Temp Pulse Pulse Resp BP BP Pulse Ox 12/10/18 06:45 97.6 F 65 14 122/61 91 L 12/10/18 03:10 98.2 F 79 18 149/78 99 Intake and Output 12/09/18 12/10/18 12/10/18 22:59 06:59 14:59 Other: Weight 95.254 kg Results CBC & Chem 7: 12/10/18 03:35 Labs: Abnormal Lab Results - Last 24 Hours (Table) 12/10/18 12/10/18 Range/Units 04:28 08:09 POC Glucose (mg/dL) 120 H 127 H (75-99) mg/dL Past Medical History Past Medical History: Diabetes Mellitus, Hyperlipidemia, Hypertension History of Any Multi-Drug Resistant Organisms: None Reported Past Surgical History: No Surgical Hx Reported Past Anesthesia/Blood Transfusion Reactions: No Reported Reaction Smoking Status: Current every day smoker - Past Family History Mother History Unknown: Yes Additional Family Medical History / Comment(s): Mother is 75 years of age and he is unsure of her past medical history. Father History Unknown: Yes Additional Family Medical History / Comment(s): Father is alive at age 75 with history of coronary artery disease. Daughter(s) Family Medical History: No Reported History Brother(s) Family Medical History: No Reported History Additional Family Medical History / Comment(s): He has 2 brothers with no major medical problems. Medications and Allergies Home Medications Medication Instructions Recorded Confirmed Type metFORMIN HCL [Glucophage] 500 mg PO BID 30 Days tab 12/28/15 12/10/18 Rx Ascorbic Acid [Vitamin C] 500 mg PO DAILY 07/18/16 12/10/18 History Atorvastatin [Lipitor] 80 mg PO HS 12/08/18 12/10/18 History Cholecalciferol [Vitamin D3 (25 1,000 unit PO DAILY 12/08/18 12/10/18 History Mcg = 1000 Iu)] Garlic 1 tab PO DAILY 12/08/18 12/10/18 History Clindamycin HCl 300 mg PO QID 12/10/18 12/10/18 History Paliperidone [Invega] 6 mg PO DAILY 12/10/18 12/10/18 History buPROPion HCL [Wellbutrin XL] 150 mg PO DAILY 12/10/18 12/10/18 History Allergies Allergy/AdvReac Type Severity Reaction Status Date / Time Penicillins Allergy Unknown Verified 12/10/18 06:29 Childhood Physical Exam Vitals: Vital Signs Temp Pulse Pulse Resp BP BP Pulse Ox 12/10/18 06:45 97.6 F 65 14 122/61 91 L 12/10/18 03:10 98.2 F 79 18 149/78 99 Intake and Output 12/09/18 12/10/18 12/10/18 22:59 06:59 14:59 Other: Weight 95.254 kg Results CBC & Chem 7: 12/10/18 03:35 Labs: Abnormal Lab Results - Last 24 Hours (Table) 12/10/18 12/10/18 Range/Units 04:28 08:09 POC Glucose (mg/dL) 120 H 127 H (75-99) mg/dL
[2018-12-10 13:42] LABS: Glucose,Whole Blood 133 mg/dL (75-99)
[2018-12-10 18:28] LABS: Glucose,Whole Blood 124 mg/dL (75-99)
[2018-12-10 20:45] LABS: Glucose,Whole Blood 201 mg/dL (75-99)
[2018-12-10] MEDS: ATORVASTATIN 80 MG TAB PO SCH (21:01)
[2018-12-11] MEDS: metFORMIN 500 MG TAB PO SCH ×2 (07:58→20:31)
[2018-12-11] MEDS: PALIPERIDONE 3 MG TAB.ER.24 PO SCH (07:58)
[2018-12-11] MEDS: NICOTINE 7MG/24HR PATCH TRANSDERM SCH (07:59)
[2018-12-11 08:02] LABS: Glucose,Whole Blood 120 mg/dL (75-99)
--- NOTE | 2018-12-11 08:27 | P.PN ---
Progress Note - Text Interval history: The patient's found in his room he does follow me to an interview room today. He reports he feels out of it and just needs to adapt. He states that he has not attended groups and doesn't intend ongoing to groups until he has adapted. He has no questions or concerns regarding invega it appears he has been compliant with it so far on the mental health unit. He describes having some difficulty sleeping due to the beds not being comfortable. Staff recorded he slept 6 hours. He indicates he is been eating meals. He states that family visited last evening. When attempting to discuss this further he states "that's personal" not wanting describe their interaction. Mental status exam: The patient is alert he is dressed in his own clothing he seated in the chair. He shakes his leg throughout the session. Eye contact is brief at best. He often looks about the room. He reports his mood is "out of it". Affect is constricted to mildly irritable. He again denies having any psychiatric symptoms when reviewing numerous types. Overall he appears guarded. He does appear distracted. I had to repeat questions several times. Insight and judgment impaired. He demonstrated no verbal or physical aggressiveness. He offers little to no spontaneous speech. Answers to questions are brief. In that sense the thought process was linear he demonstrated no tangential thinking loose associations or flight of ideas. Plan: Psychosis, the patient will continue on invega 6 mg daily. We are working with the family's assumptions that he had been noncompliant with the medication. We reviewed that he has been admitted here yearly for the last 4 years. We will monitor him for safety. He is encouraged to participate in the milieu. He requires continued psychiatric hospitalization for safety reasons. We're awaiting the result of his deferral conference.
[2018-12-11 10:04] LABS: ALT 52 U/L (21-72); AST 25 U/L (17-59); African American GFR (CKD) >90 (>60 ml/min/1.73 sqM); Albumin 4.2 g/dL (3.5-5.0); Alkaline Phosphatase 51 U/L (38-126); Anion Gap 10 mmol/L; Bilirubin, Delta 0.1 mg/dL (0.0-0.2); Bilirubin,Unconjugated 0.4 mg/dL (0.0-1.1); Blood Urea Nitrogen 12 mg/dL (9-20); Calcium 9.7 mg/dL (8.4-10.2); Carbon Dioxide 26 mmol/L (22-30); Chloride 107 mmol/L (98-107); Cholesterol 122 mg/dL (<200); Glucose 178 mg/dL (74-99); HDL Cholesterol 35 mg/dL (40-60); LDL Cholesterol,Calculated 54 mg/dL (0-99); Potassium 4.6 mmol/L (3.5-5.1); Sodium 143 mmol/L (137-145); Total Bilirubin 0.5 mg/dL (0.2-1.3); Total Protein 6.7 g/dL (6.3-8.2); Triglycerides 165 mg/dL (<150)
[2018-12-11 13:22] LABS: Glucose,Whole Blood 141 mg/dL (75-99)
[2018-12-11 18:04] LABS: Glucose,Whole Blood 104 mg/dL (75-99)
[2018-12-11 18:54] LABS: Hemoglobin A1C 6.6 % (4.0-6.0)
[2018-12-11 20:04] LABS: Glucose,Whole Blood 141 mg/dL (75-99)
[2018-12-11] MEDS: ATORVASTATIN 80 MG TAB PO SCH (20:31)
[2018-12-12 07:57] LABS: Glucose,Whole Blood 131 mg/dL (75-99)
[2018-12-12] MEDS: PALIPERIDONE 3 MG TAB.ER.24 PO SCH (09:06)
[2018-12-12] MEDS: metFORMIN 500 MG TAB PO SCH ×2 (09:06→20:55)
[2018-12-12] MEDS: NICOTINE 7MG/24HR PATCH TRANSDERM SCH (09:07)
[2018-12-12] MEDS ORDERED: PALIPERIDONE IM 234 MG/1.5 ML SYG IM ONE (11:24)
--- NOTE | 2018-12-12 11:28 | P.PN ---
Progress Note - Text Interval history: The patient is found in the hallway he follows me to an interview room. He reports that he slept last evening. Staff reported that he has not been attending groups. He states he attended 2 morning groups. Appetite stable. We reviewed his psychotropic medications his questions were answered. We reviewed that he will have a deferral conference this afternoon. I discussed that it would be our plan to have him on an injectable medication and he is agreeable to having us initiate Invega Sustenna. He states that he feels he is doing worse here because he is an empath and he can feel other people's pain. Mental status exam: The patient is alert he is dressed in his own clothing wearing sweatpants and a T-shirt. Eye contact is intermittent. Speech is fluent spontaneous nonpressured. He reports his mood is worse since being in the hospital. He states that he feels what other people are feeling. He cont inues to assert that the petition information is incorrect and that his mother is demented when discussing medication compliance. He has impaired insight and judgment at this time. He demonstrates no verbal or physical aggressiveness. He does shake his leg throughout the session however. He maintains a flat affect. He is oriented to person place and date. Impressions/plan: Continued symptoms of psychosis, we will initiate Invega Sustenna 234 mg today. We discussed giving the second dose in 4-7 days. He is encouraged to participate in the milieu. We will continue monitoring him for safety. Vital signs reviewed. He requires continued psychiatric hospitalization.
[2018-12-12 12:39] LABS: Glucose,Whole Blood 96 mg/dL (75-99)
[2018-12-12 17:39] LABS: Glucose,Whole Blood 109 mg/dL (75-99)
[2018-12-12] MEDS: ATORVASTATIN 80 MG TAB PO SCH (20:55)
[2018-12-12 21:00] LABS: Glucose,Whole Blood 122 mg/dL (75-99)
[2018-12-13 07:48] LABS: Glucose,Whole Blood 113 mg/dL (75-99)
--- NOTE | 2018-12-13 08:19 | P.PN ---
Progress Note - Text Progress Note Date: 12/13/18 Interval History: Patient is a 48-year-old male who is being seen in coverage for Dr. Schmidt. Patient comes to the interview room and states that he is having an ultrasound today for gallstones. Patient states that he refused his Invega long-acting injectable yesterday. He states he has been attending groups and activities on the unit. He states he slept well. Patient responded to questions with little elaboration or information and avoided eye contact. Mental Status: Appearance/Attitude: Patient is casually dressed, makes only intermittent eye contact and is superficially cooperative Behavior: Patient does not exhibit any psychomotor agitation or retardation Speech/Language: Patient's speech is not spontaneous he responds to questions only in a normal volume and rhythm and he is coherent Thought Process: Patient is goal-directed his responses are brief and non- elaborative is no evidence of loose association or flight of ideas Thought Content: Patient denies any auditory or visual hallucinations and no delusions or paranoid ideation are elicited. Patient denies any symptoms and states he sleeping well and is awaiting an ultrasound for possible gallstones. Patient states that he's been attending groups and interacting with others on the unit Suicidal/Homicidal Ideation: He denies any current suicidal or homicidal ideation Sensorium/Cognition: Patient is alert and oriented to person, place and time Mood/Affect: Patient's mood is bland his affect is blunted Insight/Judgment: Patient's insight and judgment are limited Assessment: Patient refused his long-acting Invega injection yesterday wishes to continue with oral medication, patient denies any symptomatology and I treated this patient during his last admission in July and his presentation was much the same. Patient is non-elaborative in his responses to questions and denies all symptomatology. Plan: Patient will continue Invega 6 mg orally at bedtime and will discuss with Dr. Schmidt when he returns on Saturday regarding the long-acting injectable Invega. Patient continues to require hospitalization to further stabilize his mood and symptoms.
[2018-12-13] MEDS: PALIPERIDONE 3 MG TAB.ER.24 PO SCH (10:47)
[2018-12-13] MEDS: NICOTINE 7MG/24HR PATCH TRANSDERM SCH (10:47)
[2018-12-13] MEDS: metFORMIN 500 MG TAB PO SCH ×2 (10:48→20:46)
--- NOTE | 2018-12-13 10:49 | US ---
EXAMINATION TYPE: US abdomen limited DATE OF EXAM: 12/13/2018 COMPARISON: Previous CT scan dated 11/28/2018. CLINICAL HISTORY: gall stone. RUQ pain x 1 week, history of gallstones EXAM MEASUREMENTS: Liver Length: 14.7 cm Gallbladder Wall: 0.1 cm CBD: 0.3 cm Right Kidney: 10.5 x 5.5 x 6.9 cm Pancreas: visualization limited by overlying midline bowel gas Liver: attenuating, increased echogenicity, heterogeneous with 0.9cm hypoechoic area adjacent to gal lbladder Gallbladder: 0.7cm non mobile stone seen within neck, wall measures wnl Evidence for sonographic Ordonez's sign: no CBD: visualized portions wnl, limited by overlying bowel gas Right Kidney: wnl Limited views of the pancreas are unremarkable. The liver is normal in size without evidence of biliary dilatation. There is a 9 mm hypoechoic area a djacent to the gallbladder which may represent fatty sparing. There is a 7 mm gallstone within the gallbladder. This is nonmobile and appears to be within the neck of the gallbladder. Gallbladder wall is not thickened measuring 1 mm. This hepatic duct measures 3 m m. The right kidney has a normal appearance.. IMPRESSION: 1. CHOLELITHIASIS. 2. HYPOECHOIC AREA ADJACENT TO THE GALLBLADDER MAY REPRESENT FATTY SPARING.
[2018-12-13 12:07] LABS: ALT 47 U/L (21-72); AST 27 U/L (17-59); African American GFR (CKD) >90 (>60 ml/min/1.73 sqM); Albumin 4.4 g/dL (3.5-5.0); Alkaline Phosphatase 53 U/L (38-126); Anion Gap 10 mmol/L; Blood Urea Nitrogen 14 mg/dL (9-20); Calcium 9.4 mg/dL (8.4-10.2); Carbon Dioxide 28 mmol/L (22-30); Chloride 102 mmol/L (98-107); Glucose 256 mg/dL (74-99); Potassium 4.7 mmol/L (3.5-5.1); Sodium 140 mmol/L (137-145); Total Bilirubin 0.7 mg/dL (0.2-1.3); Total Protein 7.1 g/dL (6.3-8.2)
[2018-12-13 12:37] LABS: Glucose,Whole Blood 260 mg/dL (75-99)
[2018-12-13 17:49] LABS: Glucose,Whole Blood 101 mg/dL (75-99)
[2018-12-13 20:46] LABS: Glucose,Whole Blood 150 mg/dL (75-99)
[2018-12-13] MEDS: ATORVASTATIN 80 MG TAB PO SCH (20:46)
[2018-12-14 07:33] LABS: Glucose,Whole Blood 116 mg/dL (75-99)
[2018-12-14] MEDS: metFORMIN 500 MG TAB PO SCH ×2 (08:12→21:24)
[2018-12-14] MEDS: PALIPERIDONE 3 MG TAB.ER.24 PO SCH (08:12)
[2018-12-14] MEDS: NICOTINE 7MG/24HR PATCH TRANSDERM SCH (08:37)
--- NOTE | 2018-12-14 08:50 | P.PN ---
Progress Note - Text Progress Note Date: 12/14/18 Interval History: Patient is a 48-year-old male who was seen today in coverage for Dr. Schmidt. Patient reports that he doesn't sleep well here because people come in and out of the room all night long checking on them. Patient states that he's been attending groups, still declines the long-acting injectable Invega. Patient reports no side effects from the medication and feels it given him more energy. Mental Status: Appearance/Attitude: Patient is casually dressed, makes intermittent eye contact and is cooperative Behavior: Patient does not exhibit any psychomotor agitation or retardation Speech/Language: Patient's speech is limited to responding to questions, of normal volume and rhythm and he is coherent Thought Process: Patient is goal-directed with little elaboration no evidence of loose association or flight of ideas Thought Content: Patient denies auditory or visual hallucinations, no delusions or paranoid ideation or elicited. Patient states he has more energy on this medication and continues to decline the long-acting injectable Invega. Patient states he is not sleeping well because people keep coming in and out of the room at night. Patient is eating well Suicidal/Homicidal Ideation: Patient denies any current suicidal or homicidal ideation Sensorium/Cognition: Patient is alert and oriented to person, place, and time Mood/Affect: Patient's mood is bland his affect is restricted Insight/Judgment: Patient's insight and judgment are fair Assessment: Patient's only complaint is that he is not able to sleep. Because people continue to come in and out of the room all night long. Patient continues to decline the Invega long-acting injectable. Patient has been attending groups and activities. Patient denies any other symptoms or complaints. Plan: Patient continue on Invega 6 mg at bedtime, patient continues to require hospitalization.
[2018-12-14 12:47] LABS: Glucose,Whole Blood 100 mg/dL (75-99)
[2018-12-14 17:47] LABS: Glucose,Whole Blood 106 mg/dL (75-99)
[2018-12-14 20:23] LABS: Glucose,Whole Blood 134 mg/dL (75-99)
[2018-12-14] MEDS: ATORVASTATIN 80 MG TAB PO SCH (21:24)
[2018-12-15 05:46] VITALS: BMI 30.9
[2018-12-15 07:34] LABS: Glucose,Whole Blood 122 mg/dL (75-99)
[2018-12-15] MEDS: metFORMIN 500 MG TAB PO SCH ×2 (08:39→20:25)
[2018-12-15] MEDS: PALIPERIDONE 3 MG TAB.ER.24 PO SCH (08:40)
[2018-12-15] MEDS: NICOTINE 7MG/24HR PATCH TRANSDERM SCH (08:40)
--- NOTE | 2018-12-15 09:18 | P.PN ---
Progress Note - Text Interval history: The patient's found in his room he follows me to an interview room. He indicates his mood is okay. He states that he had a good visit with his family over the weekend. He indicates that he is gone to some groups but I have not yet confirm this with staff. He states he's not sleeping at night however staff consistently reports that he sleeping 6-7 hours. Appetite stable. I was informed that he refusing invega injection despite our conversation on Saturday. We spent some time discussing this again. He did sign a deferral agreement and we discussed that the Invega Sustenna was part of his treatment plan while on the mental health unit. After discussing it further he now states he is agreeable. Mental status exam: The patient is alert he is dressed in his own clothing hygiene grooming fair. Eye contact is intermittent he often looks down at the floor. He quickly dismisses having any symptoms when going through a psychiatric review of symptoms. I don't believe that he is a reliable historian at this time. He demonstrates no verbal or physical aggressiveness he is demonstrating no involuntary repetitive movements. Insight and judgment impaired. He is oriented to person place and date. Affect is blunted. He initiates little conversation but does provide answers to questions. He is reporting no suicidal or homicidal ideation. Again I believe he is underreporting to facilitate a discharge. Impression plan: Ongoing psychosis, we will reattempt to administer the Invega Sustenna 234 mg injection today. We will monitor him for safety. He is encouraged to participate in the milieu. Our plan is to give both Invega Sustenna injections prior to discharge if possible. Vital signs reviewed. He requires continued psychiatric hospitalization for safety reasons.
[2018-12-15] MEDS ORDERED: PALIPERIDONE IM 234 MG/1.5 ML SYG IM ONE (09:30)
[2018-12-15] MEDS: ATORVASTATIN 80 MG TAB PO SCH (20:25)
[2018-12-16 07:48] LABS: Glucose,Whole Blood 99 mg/dL (75-99)
[2018-12-16] MEDS: metFORMIN 500 MG TAB PO SCH ×2 (08:12→20:14)
[2018-12-16] MEDS: NICOTINE 7MG/24HR PATCH TRANSDERM SCH (09:18)
--- NOTE | 2018-12-16 11:00 | P.PN ---
Progress Note - Text Interval history: The patient is found in the hallway he follows me to an interview room. He indicates his mood is fine. He has attended some groups. He sleeping at night appetite stable. He is reporting no side effects from the invega so far he is demonstrating no side effects from it. He is demonstrating no agitated behavior. His outpatient psychiatrist and therapist or going to be meeting with him today on the mental health unit along with the patient's parents. They are going to discuss his current status treatment and treatment planning for the future. Mental status exam: The patient is an overweight male appearing his stated age. He is dressed in his own clothing. Hygiene grooming adequate. Speech is fluent spontaneous nonpressured. Eye contact is intermittent he often looks down. 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 He denies having any suicidal or homicidal ideation. He is endorsing no symptoms of psychosis. Again he may be underreporting symptoms to facilitate a discharge. He demonstrates no verbal or physical aggressiveness he demonstrates no involuntary repetitive movements. He is less distractible today. He is oriented to person place and date. Impression/plan: Symptoms of psychosis improving, the patient has been given the first injection of Invega Sustenna and we will plan to give the second one on Saturday. If he is clinically stable and continues to cooperate with our treatment plan he may be appropriate for discharge on Saturday. Vital signs reviewed. He is encouraged to fully participate in the milieu. We will continue monitoring him for safety.
[2018-12-16 12:55] LABS: Glucose,Whole Blood 109 mg/dL (75-99)
[2018-12-16] MEDS: ATORVASTATIN 80 MG TAB PO SCH (20:14)
[2018-12-17 07:50] LABS: Glucose,Whole Blood 106 mg/dL (75-99)
[2018-12-17] MEDS: metFORMIN 500 MG TAB PO SCH ×2 (09:32→20:30)
[2018-12-17] MEDS: NICOTINE 7MG/24HR PATCH TRANSDERM SCH (09:33)
--- NOTE | 2018-12-17 10:22 | P.PN ---
Progress Note - Text Interval history: The patient is found in his room he follows me to an interview room. He states his mood is fine. He inquires about discharge. He participated in a support meeting yesterday involving his mother and his current psychiatrist and therapist. During that meeting he indicated that he did not require medication and he wanted to change his outpatient care to [facility]. The patient has no questions or concerns today. We again reviewed our plan to administer the second invega systemic injection on Saturday and possibly discharge him after that if he is clinically stable. He is not attending groups today as he felt he didn't sleep well due to disturbances on the mental health unit. Staff recorded he slept 7 hours. Mental status exam: The patient is alert he is dressed in his own clothing hygiene is fair he is mildly disheveled. He frequently does looks down at the floor eye contact is infrequent. He offers no spontaneous speech but will provide brief answers to questions asked. He is calm he is directable. He demonstrates no agitated behavior. Again he continues to deny having any symptoms when reviewing symptoms of psychosis suicidal or homicidal ideation. Insight and judgment remain limited. He demonstrates no verbal or physical aggressiveness he demonstrates no involuntary repetitive movements. Affect is bland. Impression/plan: Psychosis slowly improving, the patient will get his second Invega Sustenna injection Saturday. We will anticipate a possible discharge Saturday if he is clinically appropriate. He is encouraged to participate in the milieu. Reality orientation is provided. We will continue monitor him for safety. Social work will continue contacting the patient's mother for discharge planning purposes.
[2018-12-17] MEDS: ATORVASTATIN 80 MG TAB PO SCH (20:30)
[2018-12-18 07:10] VITALS: RESP 16
--- NOTE | 2018-12-18 08:01 | P.PN ---
Progress Note - Text Interval history: The patient is found in his room. He prefers to speak in his room today. He reports his mood is fine. He indicates he is motivated for discharge. He verbalizes that he is still agreeable to receiving the second injection of Invega Sustenna. He indicates he is attended groups but his participation does seem to be infrequent. He reports appetite stable. He continues to indicate having interrupted sleep however he is found in his room sleeping this morning and staff have reported that he slept 7 hours last night. Mental status exam: The patient is alert he is lying in bed eye contact is intermittent. He reports his mood is fine. Affect is bland. He is reporting no suicidal or homicidal ideation intent or plan. He is reporting no auditory or visual hallucinations or specific delusions. He is lying in bed calmly without any agitated behavior. There is no observed evidence of involuntary repetitive movements. He has little spontaneous speech today but does provide responses to questions asked although briefly. He remains oriented to person place and date. He denies having any paranoid or persecutory delusions. Again typically in the hospital environment the patient minimizes symptoms as he is trying to facilitate a discharge. Impression/plan: Symptoms of psychosis improving, we will plan on the patient receiving the second dose of Invega Sustenna tomorrow. If he appears clinically stable we will consider discharging him home tomorrow. He plans on following up with [facility]. We will continue to monitor his vitals. We will monitor him for safety. We will encourage participation in the milieu throughout the day.
[2018-12-18] MEDS: metFORMIN 500 MG TAB PO SCH ×2 (08:03→21:02)
[2018-12-18] MEDS: NICOTINE 7MG/24HR PATCH TRANSDERM SCH (08:10)
[2018-12-18 08:22] LABS: Glucose,Whole Blood 101 mg/dL (75-99)
[2018-12-18] MEDS: ATORVASTATIN 80 MG TAB PO SCH (21:02)
[2018-12-19 06:27] VITALS: BP 103/54; PULSE 61; TEMP 97.4
[2018-12-19 07:30] LABS: Glucose,Whole Blood 140 mg/dL (75-99)
[2018-12-19] MEDS: metFORMIN 500 MG TAB PO SCH (09:08)
[2018-12-19] MEDS: NICOTINE 7MG/24HR PATCH TRANSDERM SCH (09:08)
--- NOTE | 2018-12-19 09:57 | P.DS ---
Providers Date of admission: 12/10/18 06:08 Expected date of discharge: 12/19/18 Attending physician: Kareem Schmidt Consults: 12/10/18 06:19 Consult Physician Routine Consulting Provider: Judit Sandhu Consult Reason/Comments: For H & P for Medical Follow Up Do you want consulting provider notified?: Yes Primary care physician: Pam Goode - Discharge Diagnosis(es) (1) Schizoaffective disorder Current Visit: Yes Status: Acute Priority: High Hospital Course: Brief summary of admission note: This patient is a 48-year-old male who was admitted to the mental health unit on the petition completed by his mother indicating he made suicidal statements and he was experiencing acute symptoms of psychosis. Allegedly the patient sent text messages stating he wanted to end his life. He indicated that there were spiritual warfare going on and [employer] was winning. He reported that the [facility] is over and that that [facility] is [place]. It was noted that he had agitated behavior and had been off of his psychotropic medication. He has a known history of schizoaffective disorder. He has had numerous admissions to the mental health unit in [place] yearly over the last 4 years due to his noncompliance. For full details please refer to my psychiatric evaluation dated 12/10/2018. Summary of hospital course: The patient was admitted to the mental health unit involuntarily. A second clinical certificate was completed. He did defer at the deferral conference with his managing attorney. We reviewed his presenting symptoms and treatment options. Clearly compliance outside of the hospital is a significant concern. I did confer with his outpatient psychiatrist Dr. Ornelas and he was in agreement's that we should use an injectable Depo form of an antipsychotic. Invega Sustenna was chosen and he received both of the initiation doses here on the mental health unit the last dose being given today. The patient's outpatient psychiatrist and therapist along with the patient's mother met with him on the mental health unit during a support meeting. At the conclusion of that Gilbert indicated he no longer wanted to work with Dr. Ornelas or Melisa his therapist. He opted to begin outpatient services with [facility]. The patient's infrequently attended group but he demonstrated no agitated behavior. There has been a reduction in the psychosis. Each day he refuses having any symptoms but I suspect there may be some residual symptoms still. He reports no thoughts of harming himself or others. We discussed the implications of the deferral agreement and he verbalizes an understanding of the consequences if he violates that agreement. Mental status exam: The patient is alert he is dressed in his own clothing hygiene grooming adequate. Speech is more spontaneous today he discusses some of his interests that he would like to pursue upon being discharged. 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 He reports no suicidal ideation intent or plan. He reports no auditory or visual hallucinations or any specific delusions. He may still have some paranoid thoughts or yazidism preoccupation that he is not sharing. Eye contact is intermittent he often looks down when speaking. He demonstrates no verbal or physical aggressiveness he demonstrates no involuntary repetitive movements. Insight and judgment have improved during the hospitalization. He is oriented to person place and date. Affect for the most part is constricted. He spontaneously describes future oriented thinking. Impressions 1. Schizoaffective disorder 2. Diabetes, hyperlipidemia Plan: The patient will be discharged mental health unit today. He will return residing with his parents. He will be given his second dose of Invega Sustenna today and that will be 156 mg IM. He will be due for his next injection in 28 days. He is instructed to abstain from any use of alcohol marijuana or illicit drugs as these substances can elevate his safety risk. At this time there is no imminent safety risk is appropriate for transition back to outpatient care. He will be instructed how to follow up with [facility] for an intake appointment soon after discharge. He is instructed to return to the hospital with any acute safety concerns. Patient Condition at Discharge: Stable Plan - Discharge Summary Discharge Rx Participant: No New Discharge Prescriptions: New Nicotine 7Mg/24Hr Patch [Habitrol] 1 patch TRANSDERM DAILY #14 patch Paliperidone IM [Invega Sustenna] 117 mg IM ONCE #1 syr Continue metFORMIN HCL [Glucophage] 500 mg PO BID 30 Days tab Ascorbic Acid [Vitamin C] 500 mg PO DAILY Garlic 1 tab PO DAILY Cholecalciferol [Vitamin D3 (25 Mcg = 1000 Iu)] 1,000 unit PO DAILY Atorvastatin [Lipitor] 80 mg PO HS Discontinued Paliperidone [Invega] 6 mg PO DAILY Clindamycin HCl 300 mg PO QID buPROPion HCL [Wellbutrin XL] 150 mg PO DAILY Discharge Medication List metFORMIN HCL [Glucophage] 500 mg PO BID 30 Days tab 12/28/15 [Rx] Ascorbic Acid [Vitamin C] 500 mg PO DAILY 07/18/16 [History] Atorvastatin [Lipitor] 80 mg PO HS 12/08/18 [History] Cholecalciferol [Vitamin D3 (25 Mcg = 1000 Iu)] 1,000 unit PO DAILY 12/08/18 [History] Garlic 1 tab PO DAILY 12/08/18 [History] Nicotine 7Mg/24Hr Patch [Habitrol] 1 patch TRANSDERM DAILY #14 patch 12/19/18 [Rx] Paliperidone IM [Invega Sustenna] 117 mg IM ONCE #1 syr 12/19/18 [Rx] Follow up Appointment(s)/Referral(s): Pam Goode MD [Primary Care Provider] - 1-2 days Patient Instructions/Handouts: How to Stop Smoking (DC), Suicide Prevention (DC) Activity/Diet/Wound Care/Special Instructions: Keep your follow up appointments as scheduled. Continue your medications as prescribed. Contact your psychiatrist or primary care physician when you need refills of your medication. No alcohol or street drugs. No access to guns or weapons. Crisis line if needed .
[2018-12-19] MEDS ORDERED: PALIPERIDONE IM 156 MG/ML SYG IM ONE (10:00)
== END 2018-12-19 11:59 | disposition home or self-care (01) | DRG 885 ==
LOC: EC 03:04 → 3MHU 06:08
PROVIDERS: ADMIT Psychiatry & Neurology Psychiatry; ATTEND Psychiatry & Neurology Psychiatry
DX: F25.9 Schizoaffective disorder, unspecified (principal); E11.69 Type 2 diabetes mellitus with other specified complication; K80.20 Calculus of gallbladder without cholecystitis without obstruction; E78.5 Hyperlipidemia, unspecified; I10 Essential (primary) hypertension; F17.200 Nicotine dependence, unspecified, uncomplicated; F41.9 Anxiety disorder, unspecified; Z82.49 Family history of ischemic heart disease and other diseases of the circulatory system; Z79.84 Long term (current) use of oral hypoglycemic drugs; Z79.899 Other long term (current) drug therapy; Z88.0 Allergy status to penicillin; Z91.19 Patient's noncompliance with other medical treatment and regimen
CPT/HCPCS: 36415; 76705; 80053; 80061; 80320; 82075; 82248; 83036; 84443; 85025; 99285

== ENCOUNTER 2019-02-03 06:25 | Day surgery (SDC) | payer MEDICARE, OTHER ==
[2019-02-02 12:09] VITALS: BMI 32.2
[~2019-02-03 06:25] MED LIST: HEPARIN SODIUM,PORCINE 5,000 UNIT/ML 1 ML VIAL SQ ONE; HYDROmorphone 0.5 MG/0.5 ML SYRINGE IVP PRN; LIDOCAINE 1% 20 ML VIAL (10MG/ML) FOR IV START INTRADERMA PRN; METOCLOPRAMIDE 5 MG/ML 2 ML VIAL IVP PRN; ONDANSETRON 4 MG/2 ML VIAL IVP ONE; SCOPOLAMINE 1.5MG/72HR PATCH TRANSDERM ONE
[2019-02-03 06:55] VITALS: RESP 16
[2019-02-03] MEDS: LACTATED RINGERS 1,000 ML IV SCH ×2 (06:56→07:41)
[2019-02-03 06:58] LABS: Glucose,Whole Blood 132 mg/dL (75-99)
--- NOTE | 2019-02-03 07:40 | P.GSHP ---
History of Present Illness H&P Date: 02/03/19 Chief Complaint: Right upper quadrant pain, cholelithiasis This is a 48-year-old male who presents today for laparoscopic cholecystectomy. Patient's expiratory quadrant pain is found have evidence of cholelithiasis. Past Medical History Past Medical History: Diabetes Mellitus, Hyperlipidemia, Hypertension, Osteoarthritis (OA) History of Any Multi-Drug Resistant Organisms: None Reported Past Surgical History: No Surgical Hx Reported Past Anesthesia/Blood Transfusion Reactions: No Reported Reaction Smoking Status: Current every day smoker - Past Family History Mother History Unknown: Yes Additional Family Medical History / Comment(s): . Father History Unknown: Yes Additional Family Medical History / Comment(s): ATRIAL FIB Daughter(s) Family Medical History: No Reported History Brother(s) Family Medical History: No Reported History Additional Family Medical History / Comment(s): He has 2 brothers with no major medical problems. Medications and Allergies Home Medications Medication Instructions Recorded Confirmed Type metFORMIN HCL [Glucophage] 500 mg PO BID 30 Days tab 12/28/15 02/03/19 Rx Ascorbic Acid [Vitamin C] 500 mg PO DAILY 07/18/16 02/03/19 History Atorvastatin [Lipitor] 80 mg PO HS 12/08/18 02/03/19 History Cholecalciferol [Vitamin D3 (25 1,000 unit PO DAILY 12/08/18 02/03/19 History Mcg = 1000 Iu)] Garlic 1 tab PO DAILY 12/08/18 02/03/19 History Aspirin [Adult Low Dose Aspirin EC] 81 mg PO DAILY 12/19/18 02/03/19 History Paliperidone IM [Invega Sustenna] 1 injection IM QMONTH 12/19/18 02/03/19 History Allergies Allergy/AdvReac Type Severity Reaction Status Date / Time Penicillins Allergy Unknown Verified 02/03/19 06:47 Childhood Surgical - Exam Vital Signs Temp Pulse Resp BP Pulse Ox 97.8 F 77 16 112/65 100 02/03/19 06:53 02/03/19 06:53 02/03/19 06:53 02/03/19 06:53 02/03/19 06:53 - General well developed, well nourished, no distress - Eyes PERRL - ENT normal pinna - Neck no masses - Respiratory normal expansion - Cardiovascular Rhythm: regular - Abdomen Abdomen: soft, non tender Results - Labs Abnormal Lab Results - Last 24 Hours (Table) 02/03/19 Range/Units 06:55 POC Glucose (mg/dL) 132 H (75-99) mg/dL Assessment and Plan Assessment: Cholelithiasis. Chronically cholecystitis. We'll perform laparoscopic cholecystectomy
[2019-02-03] MEDS ORDERED: HYDROmorphone (PF) 1 MG/ML ONE (07:42)
[2019-02-03] MEDS ORDERED: NEOSTIGMINE 1 MG/ML 10 ML VIAL ONE (07:42)
[2019-02-03] MEDS ORDERED: KETOROLAC 30 MG/ML 1 ML VIAL ONE (07:42)
[2019-02-03] MEDS ORDERED: LIDOCAINE 1% INJ 10MG/ML (20 ML MDV) ONE (07:42)
[2019-02-03] MEDS ORDERED: PROPOFOL 10 MG/ML 20 ML VIAL IV ONE (07:42)
[2019-02-03] MEDS ORDERED: fentaNYL (PF) 50 MCG/ML 2 ML AMP ONE (07:42)
[2019-02-03] MEDS ORDERED: ROCURONIUM BROMIDE 10 MG/ML 10 ML VIAL IV ONE (07:42)
[2019-02-03] MEDS ORDERED: GLYCOPYRROLATE 0.2 MG/ML 2 ML VIAL ONE (07:42)
[2019-02-03] MEDS ORDERED: MIDAZOLAM 2 MG/2 ML VIAL ONE (07:42)
[2019-02-03] MEDS ORDERED: BUPIVACAINE (PF) 0.25% 30 ML VIAL SQ ONE ×2 (08:07→08:13)
[2019-02-03] MEDS ORDERED: LACTATED RINGERS 1,000 ML IV ONE ×2 (08:15→10:00)
--- NOTE | 2019-02-03 08:36 | P.OP ---
Date of Procedure: 02/03/19 Preoperative Diagnosis: Cholecystitis Postoperative Diagnosis: Cholecystitis Procedure(s) Performed: Laparoscopic cholecystectomy Anesthesia: NELSON Surgeon: Enrique Todd Estimated Blood Loss (ml): 5 Pathology: other (Gallbladder) Condition: stable Disposition: PACU Description of Procedure: The patient was placed on the operating table. The patient received a general endotracheal tube anesthesia. The patients abdomen was prepped and draped in the usual sterile fashion. Through an infraumbilical stab incision, the fascia of the anterior abdominal wall was grasped with a pair of Kochers and then the Veress needle was placed in the peritoneal cavity. Position of the Veress needle was confirmed with positive drop test. The abdomen was then insufflated. After adequate insufflation, the 10 mm trocar was placed in the peritoneal cavity. Following this the laparoscope was placed in the peritoneal cavity. The patient was placed in the head-up, right side up position and then a 5 mm trocar was placed in the right lateral and right subcostal position under direct visualization. A 8 mm trocar was placed in the epigastric position. The gallbladder was grasped in the fundus and infundibulum. Traction on the gallbladder was placed in the lateral and the cephalad positions. The triangle of Calot was visualized.. The cystic duct was bluntly dissected until the union of the cystic duct and common bile duct was seen. A critical view of safety was achieved. The cystic duct was then divided and sealed with the Harmonic scissors. A PDS Endoloop was then placed throughout the cystic duct stump. The cystic artery divided and sealed with the Harmonic scissors. The gallbladder was then removed from the liver bed using Harmonic scissors. The gallbladder was then extracted through the epigastric port site. Operative field was checked for any bleeding spots and Harmonic scissors was used to coagulate the liver bed. The abdomen was irrigated. The trocars were removed. The skin was closed using interrupted 3-0 Vicryl suture. Dermabond dressing were applied. The patient tolerated the procedure well.
[2019-02-03 08:46] VITALS: TEMP 96.9
[2019-02-03 09:10] LABS: Glucose,Whole Blood 161 mg/dL (75-99)
[2019-02-03 11:33] VITALS: BP 112/58; PULSE 74
== END 2019-02-03 11:44 | disposition home or self-care (01) ==
LOC: OR 06:25
PROVIDERS: ATTEND Surgery
DX: K80.10 Calculus of gallbladder with chronic cholecystitis without obstruction (principal); I10 Essential (primary) hypertension; E11.9 Type 2 diabetes mellitus without complications; M19.90 Unspecified osteoarthritis, unspecified site; E78.5 Hyperlipidemia, unspecified; F41.9 Anxiety disorder, unspecified; F20.9 Schizophrenia, unspecified; F17.210 Nicotine dependence, cigarettes, uncomplicated; Z82.49 Family history of ischemic heart disease and other diseases of the circulatory system; Z79.84 Long term (current) use of oral hypoglycemic drugs; Z79.82 Long term (current) use of aspirin; Z79.899 Other long term (current) drug therapy; Z88.0 Allergy status to penicillin
CPT/HCPCS: 88304; 47562; J2250; J1644; J2710; J2765; J0690; J2405; J2001; J3010; J1885; J1170; J2704